=== PATIENT | female | born 1965 | race Caucasian/White ===

== ENCOUNTER → 2016-12-19 | Outpatient (CLI) | payer MEDICARE, MEDICAID ==
[~2016-12-19] MED LIST: ACET325T21 PO; ASPI81TA2 PO; BACL10TA PO; BISA10SU2 RC; BISA5TAB4 PO; CYAN10002 IM; CYCL5TAB PO; FOLI20CA PO; FURO-69 PO; GABA-585 PO; GABA-586 PO; GLUC1VIA IJ; HYDR-2666 PO; INSU100I17 SQ; INSU100V8 SQ; IPRA3AMP23 IH; LOPE2CAP PO; MAG355OR32 PO; MAGN400O4 PO; METF10002 PO; METF500T4 PO; MULT-245 PO; OMEP40CA5 PO; POTA99TA PO; SENN1TAB21 PO; SUCR1TAB PO; [UNRECOGNIZED DRUG - CODE] MC
[2016-12-19 07:58] VITALS: BP 117/54
[2016-12-19 08:20] LABS: HEMATOCRIT 19.6 % (36.0-47.0); HEMOGLOBIN 6.8 g/dL (12.0-15.5)
[2016-12-19 09:16] VITALS: BP 105/51
[2016-12-19 10:07] VITALS: BP 116/57
[2016-12-19 10:49] VITALS: BP 121/57
[2016-12-19 11:15] VITALS: BP 118/57
[2016-12-19 12:15] VITALS: BP 128/60
== END | disposition home or self-care (01) ==
LOC: OPS 07:26
PROVIDERS: ATTEND Internal Medicine
DX: D64.9 Anemia, unspecified (principal)
CPT/HCPCS: 36415; 36430; 85014; 85018; 86850; 86900; 86901; 86920; P9016

== ENCOUNTER 2017-04-12 22:24 | Inpatient (IN) | payer MEDICARE, OTHER ==
[~2017-04-12] VITALS: Ht 162.6 cm; Wt 98.9 kg
[~2017-04-12 22:24] MED LIST changes: +ASPI-630 PO; -ASPI81TA2 PO; -HYDR-2666 PO; +HYDR-2758 PO; -MAGN400O4 PO; +MAGN400O7 PO; +METF-620 PO; -METF10002 PO
[2017-04-12 22:59] LABS: BASO % 0 % (0-3); EOS % 0 % (0-3); HEMATOCRIT 26.6 % (36.0-47.0); LYMPH # 0.2 x10^3/uL (1.0-4.8); LYMPH % 1 % (24-48); MEAN CORPUSCULAR HEMOGLOBIN 28 pg (25-35); MEAN CORPUSCULAR HGB CONC 34 g/dL (31-37); MEAN CORPUSCULAR VOLUME 84 fL (79-100); MONO % 3 % (0-9); NEUT % 96 % (31-73); PLATELET COUNT 139 x10^3/uL (140-400); RED BLOOD COUNT 3.18 x10^6/uL (3.50-5.40); RED CELL DISTRIBUTION WIDTH 27.2 % (11.5-14.5); WHITE BLOOD COUNT 19.2 x10^3/uL (4.0-11.0)
[2017-04-12] MEDS ORDERED: fentaNYL PF VIAL 100 MCG/2 ML VIAL IV PRN (23:15)
[2017-04-12 23:20] LABS: ALBUMIN 4.3 g/dL (3.4-5.0); ALBUMIN/GLOBULIN RATIO 1.5 (1.0-1.7); CALCIUM 8.4 mg/dL (8.5-10.1); CREATININE 1.2 mg/dL (0.6-1.0); GFR 47.7; POTASSIUM 4.2 mmol/L (3.5-5.1); TOTAL PROTEIN 7.1 g/dL (6.4-8.2)
[2017-04-12 23:24] LABS: ANISOCYTOSIS MOD; NUCLEATED RBC 1; PLT ESTIMATE ADEQUATE (ADEQUATE); POIKILOCYTOSIS SLIGHT
[2017-04-12 23:25] LABS: POLYCHROMASIA MOD
[2017-04-12 23:27] LABS: SCHISTOCYTES OCC
[2017-04-12] MEDS ORDERED: ONDANSETRON PF 4 MG/2 ML VIAL. IV ONE (23:30)
[2017-04-12 23:31] LABS: HOWELL-JOLLY BODIES PRESENT
[2017-04-12] MEDS ORDERED: IOHEXOL 300 MG/ML 75 ML VIAL IV ONE (23:45)
[2017-04-12] MEDS ORDERED: CONTRAST GIVEN MC PRN (23:45)
[2017-04-13 00:35] LABS: BILIRUBIN,URINE MODERATE (NEG); GLUCOSE,URINE NEGATIVE (NEG); NITRITE,URINE POSITIVE (NEG); PH,URINE 5.5; PROTEIN,URINE 100 mg/dL (NEG-TRACE)
[2017-04-13 00:43] LABS: BACTERIA,URINE MANY /HPF (0-FEW); RBC,URINE OCC /HPF (0-2); SQUAMOUS EPITHELIAL CELL,UR FEW /LPF; WBC,URINE TNTC /HPF (0-4)
--- NOTE | 2017-04-13 01:03 | RAD ---
CT scan of the abdomen and pelvis with contrast 04/13/2017 CLINICAL HISTORY: Abdominal pain and nausea and vomiting since earlier today. Mean: After the intravenous administration of 60 cc of Omnipaque 300, contiguous, 5 mm axial sections were obtained through the abdomen and pelvis. One or more of the following individualized dose reduction techniques were utilized for this study: 1. Automated exposure control. 2. Adjustment of the mA and/or kV according to patient size. 3. Use of iterative reconstruction technique. FINDINGS: Comparison study is dated 01/10/2014. The absence of oral contrast material limits this study for the detection of bowel pathology. Images through the lung bases demonstrate patchy perihilar areas of infiltrate/atelectasis involving the visualized lungs. There is mild cardiomegaly. The liver is mildly enlarged measuring 20 cm in length. The spleen is mild to moderately enlarged measuring 17 cm in length. The pancreas, adrenal glands and kidneys are within normal limits. The abdominal aorta tapers normally. Surgical clips are seen within the gallbladder fossa consistent with a cholecystectomy. No free air is seen within the abdomen. A small amount of free fluid is seen surrounding the liver and spleen. Mildly dilated fluid-filled small bowel loops are seen within the lower abdomen/pelvis without definite evidence of bowel obstruction. Air and stool is seen throughout the colon. Images through the pelvis demonstrate the urinary bladder distended with urine. The uterus is within normal limits. A small to moderate amount of free fluid is seen. Minimal S-shaped curvature of the thoracolumbar spine is noted. IMPRESSION: 1. Hepatosplenomegaly. 2. Small to moderate amount free fluid is seen within the abdomen/pelvis. 3. No additional acute abnormality is seen. Electronically signed by: Juventino Redd MD (04/13/2017 1:00 AM) [facility]
[2017-04-13] MEDS ORDERED: ONDANSETRON PF 4 MG/2 ML VIAL. IV PRN (01:30)
[2017-04-13] MEDS ORDERED: fentaNYL PF VIAL 100 MCG/2 ML VIAL IV PRN (01:30)
[2017-04-13] MEDS ORDERED: ACETAMINOPHEN 325 MG TABLET. PO PRN ×2 (01:30→09:45)
[2017-04-13] MEDS ORDERED: DEXTROSE 50% 25 GM / 50ML DISP.SYRIN. IV PRN ×2 (02:00→10:00)
--- NOTE | 2017-04-13 04:20 | ED.ADGEN ---
Past Medical History Past Medical History: Anemia, Diabetes-Type II, Gallstones, GERD, Hypertension , Other Additional Past Medical Histor: QUAD.,NEURO. BLADDER, MUSCLE SPASMS, CERVICAL FX, HYPOKALEMIA Past Surgical History: Other Additional Past Surgical Histo: UNKNOWN Alcohol Use: None Drug Use: None Adult General Chief Complaint Chief Complaint: NAUSEA/VOMITING/DIARRHA HPI HPI Patient is a 51 year old woman, history of cervical fracture, neurogenic bladder, anemia, GERD, hypertension, constipation, who presents the emergency department from her nursing facility with report of abdominal pain, nausea and vomiting. Patient denies any urinary complaints, but has difficulty reporting reporting due to her neurogenic bladder. She wears a diaper brief. She is complaining of nausea, and one episode of vomiting at the nursing facility, with cramping abdominal pain in her lower abdomen. Denies any sick contacts or exposures. No chest pain or shortness of breath, states she is feeling generally unwell. No recent antibiotic use per report. She is not certain of her last bowel movement. Denies any diarrhea. Patient's sister who is her care proxy is en route to the ED. Review of Systems Review of Systems Constitutional: Denies fever or chills. [] Eyes: Denies change in visual acuity. [] HENT: Denies nasal congestion or sore throat. [] Respiratory: Denies cough or shortness of breath. [] Cardiovascular: Denies chest pain or edema. [] GI: Abdominal pain, nausea, one episode of vomiting, no bloody stools or diarrhea. : Denies dysuria. [] Musculoskeletal: Denies back pain or joint pain. [] Integument: Denies rash. [] Neurologic: Denies headache, focal weakness or sensory changes. [] Endocrine: Denies polyuria or polydipsia. [] Lymphatic: Denies swollen glands. [] Psychiatric: Denies depression or anxiety. [] Current Medications Current Medications Current Medications Medications (Trade) Dose Ordered Sig/Heladio Start Time Stop Time Status Last Admin Dose Admin Fentanyl Citrate (Fentanyl 2ml Vial) 25 mcg PRN Q15MIN PRN 04/12/17 23:15 04/13/17 03:00 DC 04/12/17 23:33 25 MCG Info (Do NOT chart on this entry -- for MONITORING) 1 each PRN DAILY PRN 04/12/17 23:45 04/14/17 23:44 Iohexol (Omnipaque 300 Mg/ml) 75 ml 1X ONCE 04/12/17 23:45 04/12/17 23:46 DC 04/13/17 00:09 75 ML Ondansetron HCl (Zofran) 4 mg 1X ONCE 04/12/17 23:30 04/12/17 23:31 DC 04/12/17 23:33 4 MG Allergies Allergies Allergies Coded Allergies Type Severity Reaction Last Updated Verified No Known Drug Allergies 12/19/16 No Physical Exam Physical Exam Constitutional: Well developed, well nourished, no acute distress, chronically ill in appearance, nasal cannula in place.. [] HENT: Normocephalic, atraumatic, bilateral external ears normal, oropharynx moist, no oral exudates, nose normal. [] Eyes: PERRLA, EOMI, conjunctiva normal, no discharge. [] Neck: Normal range of motion, no tenderness, supple, no stridor. [] Cardiovascular:Heart rate regular rhythm, no murmur , S1, S2, rubs or gallops. [ ] Lungs & Thorax: Diminished breath sounds at bases bilaterally, no wheezing, rhonchi, rales. No chest wall crepitus. [] Abdomen: Bowel sounds present, in all 4 quadrants, abdomen is soft, but distended, mild initial patient throughout, no rebound or rigidity, no guarding. Well-healed surgical incisions noted consistent with history of cholecystectomy in the right abdomen. Skin: Warm, dry, no erythema, no rash. [] Back: No tenderness, no CVA tenderness. [] Extremities: No tenderness, no cyanosis, no clubbing, ROM intact, denies edema of lower extremity and upper extremities, which is chronic. Neurologic: Alert and oriented X 3, normal motor function, normal sensory function, no focal deficits noted. [] Psychologic: Affect normal, judgement normal, mood normal. [] Current Patient Data Vital Signs Vital Signs Date Time Temp Pulse Resp B/P (MAP) Pulse Ox O2 Delivery O2 Flow Rate FiO2 04/13/17 01:00 76 112/51 (71) 92 Nasal Cannula 2.0 04/13/17 00:00 20 04/12/17 22:25 99.8 99.8 Lab Values Laboratory Tests Test 04/12/17 22:50 04/13/17 00:28 White Blood Count 19.2 x10^3/uL (4.0-11.0) H Red Blood Count 3.18 x10^6/uL (3.50-5.40) L Hemoglobin 9.0 g/dL (12.0-15.5) L Hematocrit 26.6 % (36.0-47.0) L Mean Corpuscular Volume 84 fL (79-100) Mean Corpuscular Hemoglobin 28 pg (25-35) Mean Corpuscular Hemoglobin Concent 34 g/dL (31-37) Red Cell Distribution Width 27.2 % (11.5-14.5) H Platelet Count 139 x10^3/uL (140-400) L Neutrophils (%) (Auto) 96 % (31-73) H Lymphocytes (%) (Auto) 1 % (24-48) L Monocytes (%) (Auto) 3 % (0-9) Eosinophils (%) (Auto) 0 % (0-3) Basophils (%) (Auto) 0 % (0-3) Neutrophils # (Auto) 18.4 x10^3uL (1.8-7.7) H Lymphocytes # (Auto) 0.2 x10^3/uL (1.0-4.8) L Monocytes # (Auto) 0.5 x10^3/uL (0.0-1.1) Eosinophils # (Auto) 0.0 x10^3/uL (0.0-0.7) Basophils # (Auto) 0.0 x10^3/uL (0.0-0.2) Segmented Neutrophils % 70 % (35-66) H Band Neutrophils % 27 % (0-9) H Lymphocytes % 2 % (24-48) L Monocytes % 1 % (0-10) Nucleated Red Blood Cells 1 Platelet Estimate Adequate (ADEQUATE) Polychromasia Mod Poikilocytosis Slight Basophilic Stippling Present Anisocytosis Mod Spherocytes Present [place]yes-[place] Bodies Present Schistocytes Occ Sodium Level 146 mmol/L (136-145) H Potassium Level 4.2 mmol/L (3.5-5.1) Chloride Level 107 mmol/L (98-107) Carbon Dioxide Level 26 mmol/L (21-32) Anion Gap 13 (6-14) Blood Urea Nitrogen 31 mg/dL (7-20) H Creatinine 1.2 mg/dL (0.6-1.0) H Estimated GFR (Cockcroft-Gault) 47.7 BUN/Creatinine Ratio 26 (6-20) H Glucose Level 253 mg/dL (70-99) H Calcium Level 8.4 mg/dL (8.5-10.1) L Total Bilirubin 4.0 mg/dL (0.2-1.0) H Aspartate Amino Transferase (AST) 12 U/L (15-37) L Alanine Aminotransferase (ALT) 12 U/L (14-59) L Alkaline Phosphatase 67 U/L (46-116) Troponin I Quantitative 0.020 ng/mL (0.000-0.055) ZE-Gni-P-Type Natriuretic Peptide 1608 pg/mL (0-124) H Total Protein 7.1 g/dL (6.4-8.2) Albumin 4.3 g/dL (3.4-5.0) Albumin/Globulin Ratio 1.5 (1.0-1.7) Lipase 107 U/L (73-393) Urine Collection Type Unknown Urine Color [place] Urine Clarity Cloudy Urine pH 5.5 Urine Specific [place] >=1.030 Urine Protein 100 mg/dL (NEG-TRACE) Urine Glucose (UA) Negative mg/dL (NEG) Urine Ketones (Stick) 15 mg/dL (NEG) Urine Blood Negative (NEG) Urine Nitrite Positive (NEG) Urine Bilirubin Moderate (NEG) Urine Urobilinogen Dipstick 1.0 mg/dL (0.2 mg/dL) Urine Leukocyte Esterase Large (NEG) Urine RBC Occ /HPF (0-2) Urine WBC Tntc /HPF (0-4) Urine Squamous Epithelial Cells Few /LPF Urine Bacteria Many /HPF (0-FEW) Urine Hyaline Casts Moderate /HPF Urine Mucus Mod /LPF Laboratory Tests 04/12/17 22:50 Laboratory Tests 04/12/17 22:50 EKG EKG EC: Sinus rhythm, heart rate 81 beats/minute, upright axis, QTC of 437, MN 138, QRS of 90, mild baseline artifact noted, contour abnormality is noted in the anterior lateral leads, no ST elevations or depressions, abnormal ECG, does not meet STEMI criteria. As interpreted by me. [] Radiology/Procedures Radiology/Procedures [][facility] [address] [place] [address] IMAGING REPORT Signed PATIENT: JOCE RODARTE ACCOUNT: [id number] : 1965 LOCATION: ER AGE: 51 SEX: F EXAM STATUS: REG ER ORD. PHYSICIAN: MICHELLE ALLEN DO REASON: abd pain/n/v PROCEDURE: CT ABD PELV W/ IV CONTRST ONLY CT scan of the abdomen and pelvis with contrast 04/13/2017 CLINICAL HISTORY: Abdominal pain and nausea and vomiting since earlier today. Mean: After the intravenous administration of 60 cc of Omnipaque 300, contiguous, 5 mm axial sections were obtained through the abdomen and pelvis. One or more of the following individualized dose reduction techniques were utilized for this study: 1. Automated exposure control. 2. Adjustment of the mA and/or kV according to patient size. 3. Use of iterative reconstruction technique. FINDINGS: Comparison study is dated 01/10/2014. The absence of oral contrast material limits this study for the detection of bowel pathology. Images through the lung bases demonstrate patchy perihilar areas of infiltrate/atelectasis involving the visualized lungs. There is mild cardiomegaly. The liver is mildly enlarged measuring 20 cm in length. The spleen is mild to moderately enlarged measuring 17 cm in length. The pancreas, adrenal glands and kidneys are within normal limits. The abdominal aorta tapers normally. Surgical clips are seen within the gallbladder fossa consistent with a cholecystectomy. No free air is seen within the abdomen. A small amount of free fluid is seen surrounding the liver and spleen. Mildly dilated fluid-filled small bowel loops are seen within the lower abdomen/pelvis without definite evidence of bowel obstruction. Air and stool is seen throughout the colon. Images through the pelvis demonstrate the urinary bladder distended with urine. The uterus is within normal limits. A small to moderate amount of free fluid is seen. Minimal S-shaped curvature of the thoracolumbar spine is noted. IMPRESSION: 1. Hepatosplenomegaly. 2. Small to moderate amount free fluid is seen within the abdomen/pelvis. 3. No additional acute abnormality is seen. Electronically signed by: Juventino Redd MD (04/13/2017 1:00 AM) [facility] DICTATED and SIGNED BY: JUVENTINO REDD MD DATE: 04/13/17 0053 CC: MICHELEL ALLEN DO; LIZA CARREONH ~ Course & Med Decision Making Course & Med Decision Making Pertinent Labs and Imaging studies reviewed. (See chart for details) Patient's examination reveals positive bowel sounds, but some tympany and distention, concern for possible small bowel obstruction versus other process. Patient noted to have generalized edema, which is chronic for patient. Laboratory studies and imaging obtained after discussion with patient, pain medication and antiemetics administered. Patient has only had one episode of emesis, no further emesis in the ED. Urinalysis obtained. Urinalysis reveals a nitrate positive infection, with too numerous to count white blood cells and many bacteria. CT of abdomen and pelvis reveals small moderate amount of free fluid, possibly ascites, with mildly dilated loops of bowel but no obvious evidence of obstruction. Patient does have a leukocytosis of 19, with a hemoglobin of 9.0. She is afebrile, is resting comfortably receiving medication in the ED. I did discuss findings as above with patient and sister at bedside. At this time, we'll treat urinary tract infection with ceftriaxone, continue to monitor laboratory studies and vital signs, she remained stable in the ED, and will advance a clear liquid diet in the morning as tolerated as there is no evidence of obvious obstruction. Patient noted to have history of issues with constipation and slow bowel motility. I did discuss findings as above with Dr. Dunn, who is familiar with the patient previously admissions, he is agreeable with plan for advancing diet as tolerated, treatment of urinary tract infection , and close monitoring. Bridge orders entered per discussion. Dragon Disclaimer Dragon Disclaimer This electronic medical record was generated, in whole or in part, using a voice recognition dictation system. Departure Impression: Primary Impression: Abdominal pain Additional Impressions: Leukocytosis Urinary tract infection Disposition: ADMITTED INPATIENT Admitting Physician: Alyssa Dunn Condition: IMPROVED Problem Qualifiers MICHELLE ALLEN DO Apr 13, 2017 04:20
[2017-04-13] MEDS ORDERED: POTASSIUM CHLO10 MEQ PO (04:25)
[2017-04-13] MEDS ORDERED: METF850T2 PO (04:25)
[2017-04-13] MEDS ORDERED: DEXT15DR5 EACHEYE (04:25)
[2017-04-13] MEDS ORDERED: FLUT9.9S NS (04:25)
[2017-04-13] MEDS ORDERED: LINA72CA PO (04:25)
[2017-04-13] MEDS ORDERED: LEXAPRO20 MG PO (04:25)
[2017-04-13] MEDS ORDERED: ACET-704 PO (04:25)
[2017-04-13] MEDS ORDERED: FAMO20TA5 PO (04:25)
--- NOTE | 2017-04-13 06:56 | EKG ---
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
[2017-04-13 07:46] VITALS: BP 113/39
[2017-04-13] MEDS: INSULIN ASPART 300 UNITS/3 ML INSULN.PEN SQ SCH ×6 (09:16→17:12)
[2017-04-13] MEDS ORDERED: MAG HYDROX/ALUMINUM HYD/SIMETH 30 ML ORAL.SUSP PO PRN (09:45)
[2017-04-13] MEDS ORDERED: MAGNESIUM HYDROXIDE 2,400 MG/30 ML ORAL.SUSP. PO PRN (09:45)
[2017-04-13] MEDS ORDERED: GLUCAGON HUMAN RECOMBINANT 1 MG IJ PRN (09:45)
[2017-04-13] MEDS ORDERED: FUROSEMIDE 20 MG TABLET PO SCH (10:00)
[2017-04-13] MEDS ORDERED: ENOXAPARIN 40 MG/0.4 ML SYRINGE. SQ SCH (10:00)
[2017-04-13] MEDS ORDERED: FLUTICASONE 50MCG/NASAL SPRAY 16GM BOTTLE. NS SCH (10:00)
--- NOTE | 2017-04-13 10:28 | PDOC1 ---
History and Physical Past Medical History Cardiovascular: HTN CENTRAL NERVOUS SYSTEM: Other GI: Constipation Heme/Onc: Iron deficiency Anemia Hepatobiliary: Cholelithiasis Psych: Other Renal/: UTI, Urinary Incontinence, Other Endocrine: Diabetes Past Surgical History Past Surgical History: Cholecystectomy Family History Family History: Obesity Social History ALCOHOL: none Drugs: None Current Problem List Problem List Problems Medical Problems: (1) Abdominal pain Status: Acute (2) Leukocytosis Status: Acute (3) Urinary tract infection Status: Acute Current Medications Current Medications Current Medications Medications (Trade) Dose Ordered Sig/Heladio Start Time Stop Time Status Last Admin Dose Admin Acetaminophen (Tylenol) 650 mg PRN Q8HRS PRN 04/13/17 09:45 Acetaminophen/ Codeine Phosphate (Tylenol #3) 1 tab PRN Q4HRS PRN 04/13/17 09:45 Al Hydroxide/Mg Hydroxide (Mylanta Plus Xs) 30 ml PRN DAILY PRN 04/13/17 09:45 Albuterol/ Ipratropium (Duoneb) 3 ml [id number] 04/13/17 10:00 Artificial Tears (Artificial Tears) 1 drop QID 04/13/17 10:15 Baclofen (Lioresal) 10 mg QID 04/13/17 13:00 Ceftriaxone Sodium 1 gm/ Sodium Chloride 50 ml @ 100 mls/hr Q24H 04/13/17 23:00 Ceftriaxone Sodium 50 ml @ 100 mls/hr 1X ONCE 04/13/17 01:30 04/13/17 01:59 DC 04/13/17 01:38 100 MLS/HR Cyanocobalamin (Vitamin B-12) 1,000 mcg QMONTH 05/13/17 09:00 UNV Cyclobenzaprine HCl (Flexeril) 5 mg BID 04/13/17 10:15 Dextrose (Dextrose 50%-Water Syringe) 12.5 gm PRN Q15MIN PRN 04/13/17 10:00 Enoxaparin Sodium (Lovenox 40mg Syringe) 40 mg Q24H 04/13/17 10:00 Escitalopram Oxalate (Lexapro) 20 mg DAILY 04/13/17 11:00 Famotidine (Pepcid) 20 mg HS 04/13/17 21:00 Fentanyl Citrate (Fentanyl 2ml Vial) 50 mcg PRN Q2HR PRN 04/13/17 01:30 04/14/17 01:29 04/13/17 03:23 50 MCG Fluticasone Propionate (Flonase) 2 spray DAILY 04/13/17 10:00 Folic Acid (Folic Acid) 1 mg DAILY 04/13/17 10:00 Furosemide (Lasix) 20 mg DAILY 04/13/17 10:00 Gabapentin (Neurontin) 100 mg BID 04/13/17 10:00 Info (Do NOT chart on this entry -- for MONITORING) 1 each PRN DAILY PRN 04/12/17 23:45 04/14/17 23:44 Insulin Aspart (NovoLOG) 0-7 UNITS TIDWMEALS 04/13/17 12:00 Iohexol (Omnipaque 300 Mg/ml) 75 ml 1X ONCE 04/12/17 23:45 04/12/17 23:46 DC 04/13/17 00:09 75 ML Magnesium Hydroxide (Milk Of Magnesia) 2,400 mg PRN DAILY PRN 04/13/17 09:45 Metformin HCl (Glucophage) 850 mg BIDWMEALS 04/15/17 08:00 Multivitamins (Thera M Plus) 1 tab DAILY 04/13/17 10:00 Non-Formulary Medication 1 mg PRN PRN 04/13/17 09:45 Ondansetron HCl (Zofran) 4 mg PRN Q8HRS PRN 04/13/17 01:30 04/14/17 01:29 Potassium Chloride (Klor-Con) 10 meq [id number] 04/13/17 10:00 Senna/Docusate Sodium (Senna Plus) 1 tab BID 04/13/17 10:00 Sucralfate (Carafate) 1 gm TIDAC 04/13/17 11:30 Allergies Allergies Allergies Coded Allergies Type Severity Reaction Last Updated Verified No Known Drug Allergies 12/19/16 No ROS Review of System CONSTITUTIONAL: No fever or chills EYES: No recent changes SKIN: No rash or itching CARDIOVASCULAR: No chest pain, syncope, palpitations, or edema RESPIRATORY: No SOB or cough GASTROINTESTINAL: No nausea, vomiting or abdominal pain NEUROLOGICAL: No headaches or weakness ENDOCRINE: No cold or heat intolerance GENITOURINARY: No urgency or frequency of urination MUSCULOSKELETAL: No back pain or joint pain LYMPHATICS: No enlarged lymph nodes PSYCHIATRIC: No anxiety or depression Physical Exam Physical Exam GEN.: No apparent distress. Alert and oriented. HEENT: Head is normocephalic, atraumatic NECK: Supple. LUNGS: Clear to auscultation. HEART: RRR, S1, S2 present. Peripheral pulses intact ABDOMEN: Soft, nontender. Positive bowel sounds. EXTREMITIES: Without any cyanosis. NEUROLOGIC: Normal speech, normal tone PSYCHIATRIC: Normal affect, normal mood. SKIN: No ulcerations Vitals Vitals Vital Signs Date Time Temp Pulse Resp B/P (MAP) Pulse Ox O2 Delivery O2 Flow Rate FiO2 04/13/17 07:46 98.9 83 15 113/39 (63) 94 Room Air 98.9 04/13/17 03:53 2.0 Labs Labs Laboratory Tests Test 04/12/17 22:50 04/13/17 00:28 04/13/17 07:56 White Blood Count 19.2 x10^3/uL (4.0-11.0) Red Blood Count 3.18 x10^6/uL (3.50-5.40) Hemoglobin 9.0 g/dL (12.0-15.5) Hematocrit 26.6 % (36.0-47.0) Mean Corpuscular Volume 84 fL (79-100) Mean Corpuscular Hemoglobin 28 pg (25-35) Mean Corpuscular Hemoglobin Concent 34 g/dL (31-37) Red Cell Distribution Width 27.2 % (11.5-14.5) Platelet Count 139 x10^3/uL (140-400) Neutrophils (%) (Auto) 96 % (31-73) Lymphocytes (%) (Auto) 1 % (24-48) Monocytes (%) (Auto) 3 % (0-9) Eosinophils (%) (Auto) 0 % (0-3) Basophils (%) (Auto) 0 % (0-3) Neutrophils # (Auto) 18.4 x10^3uL (1.8-7.7) Lymphocytes # (Auto) 0.2 x10^3/uL (1.0-4.8) Monocytes # (Auto) 0.5 x10^3/uL (0.0-1.1) Eosinophils # (Auto) 0.0 x10^3/uL (0.0-0.7) Basophils # (Auto) 0.0 x10^3/uL (0.0-0.2) Segmented Neutrophils % 70 % (35-66) Band Neutrophils % 27 % (0-9) Lymphocytes % 2 % (24-48) Monocytes % 1 % (0-10) Nucleated Red Blood Cells 1 Platelet Estimate Adequate (ADEQUATE) Polychromasia Mod Poikilocytosis Slight Basophilic Stippling Present Anisocytosis Mod Spherocytes Present Reyes-[place] Bodies Present Schistocytes Occ Sodium Level 146 mmol/L (136-145) Potassium Level 4.2 mmol/L (3.5-5.1) Chloride Level 107 mmol/L (98-107) Carbon Dioxide Level 26 mmol/L (21-32) Anion Gap 13 (6-14) Blood Urea Nitrogen 31 mg/dL (7-20) Creatinine 1.2 mg/dL (0.6-1.0) Estimated GFR (Cockcroft-Gault) 47.7 BUN/Creatinine Ratio 26 (6-20) Glucose Level 253 mg/dL (70-99) Calcium Level 8.4 mg/dL (8.5-10.1) Total Bilirubin 4.0 mg/dL (0.2-1.0) Aspartate Amino Transf (AST/SGOT) 12 U/L (15-37) Alanine Aminotransferase (ALT/SGPT) 12 U/L (14-59) Alkaline Phosphatase 67 U/L (46-116) Troponin I Quantitative 0.020 ng/mL (0.000-0.055) VT-Zwa-N-Type Natriuretic Peptide 1608 pg/mL (0-124) Total Protein 7.1 g/dL (6.4-8.2) Albumin 4.3 g/dL (3.4-5.0) Albumin/Globulin Ratio 1.5 (1.0-1.7) Lipase 107 U/L (73-393) Urine Collection Type Unknown Urine Color [place] Urine Clarity Cloudy Urine pH 5.5 Urine Specific [place] >=1.030 Urine Protein 100 mg/dL (NEG-TRACE) Urine Glucose (UA) Negative mg/dL (NEG) Urine Ketones (Stick) 15 mg/dL (NEG) Urine Blood Negative (NEG) Urine Nitrite Positive (NEG) Urine Bilirubin Moderate (NEG) Urine Urobilinogen Dipstick 1.0 mg/dL (0.2 mg/dL) Urine Leukocyte Esterase Large (NEG) Urine RBC Occ /HPF (0-2) Urine WBC Tntc /HPF (0-4) Urine Squamous Epithelial Cells Few /LPF Urine Bacteria Many /HPF (0-FEW) Urine Hyaline Casts Moderate /HPF Urine Mucus Mod /LPF Glucose (Fingerstick) 312 mg/dL (70-99) Laboratory Tests Test 04/12/17 22:50 04/13/17 00:28 04/13/17 07:56 White Blood Count 19.2 x10^3/uL (4.0-11.0) Red Blood Count 3.18 x10^6/uL (3.50-5.40) Hemoglobin 9.0 g/dL (12.0-15.5) Hematocrit 26.6 % (36.0-47.0) Mean Corpuscular Volume 84 fL (79-100) Mean Corpuscular Hemoglobin 28 pg (25-35) Mean Corpuscular Hemoglobin Concent 34 g/dL (31-37) Red Cell Distribution Width 27.2 % (11.5-14.5) Platelet Count 139 x10^3/uL (140-400) Neutrophils (%) (Auto) 96 % (31-73) Lymphocytes (%) (Auto) 1 % (24-48) Monocytes (%) (Auto) 3 % (0-9) Eosinophils (%) (Auto) 0 % (0-3) Basophils (%) (Auto) 0 % (0-3) Neutrophils # (Auto) 18.4 x10^3uL (1.8-7.7) Lymphocytes # (Auto) 0.2 x10^3/uL (1.0-4.8) Monocytes # (Auto) 0.5 x10^3/uL (0.0-1.1) Eosinophils # (Auto) 0.0 x10^3/uL (0.0-0.7) Basophils # (Auto) 0.0 x10^3/uL (0.0-0.2) Segmented Neutrophils % 70 % (35-66) Band Neutrophils % 27 % (0-9) Lymphocytes % 2 % (24-48) Monocytes % 1 % (0-10) Nucleated Red Blood Cells 1 Platelet Estimate Adequate (ADEQUATE) Polychromasia Mod Poikilocytosis Slight Basophilic Stippling Present Anisocytosis Mod Spherocytes Present Reyes-[place] Bodies Present Schistocytes Occ Sodium Level 146 mmol/L (136-145) Potassium Level 4.2 mmol/L (3.5-5.1) Chloride Level 107 mmol/L (98-107) Carbon Dioxide Level 26 mmol/L (21-32) Anion Gap 13 (6-14) Blood Urea Nitrogen 31 mg/dL (7-20) Creatinine 1.2 mg/dL (0.6-1.0) Estimated GFR (Cockcroft-Gault) 47.7 BUN/Creatinine Ratio 26 (6-20) Glucose Level 253 mg/dL (70-99) Calcium Level 8.4 mg/dL (8.5-10.1) Total Bilirubin 4.0 mg/dL (0.2-1.0) Aspartate Amino Transf (AST/SGOT) 12 U/L (15-37) Alanine Aminotransferase (ALT/SGPT) 12 U/L (14-59) Alkaline Phosphatase 67 U/L (46-116) Troponin I Quantitative 0.020 ng/mL (0.000-0.055) AH-Qaf-M-Type Natriuretic Peptide 1608 pg/mL (0-124) Total Protein 7.1 g/dL (6.4-8.2) Albumin 4.3 g/dL (3.4-5.0) Albumin/Globulin Ratio 1.5 (1.0-1.7) Lipase 107 U/L (73-393) Urine Collection Type Unknown Urine Color [place] Urine Clarity Cloudy Urine pH 5.5 Urine Specific [place] >=1.030 Urine Protein 100 mg/dL (NEG-TRACE) Urine Glucose (UA) Negative mg/dL (NEG) Urine Ketones (Stick) 15 mg/dL (NEG) Urine Blood Negative (NEG) Urine Nitrite Positive (NEG) Urine Bilirubin Moderate (NEG) Urine Urobilinogen Dipstick 1.0 mg/dL (0.2 mg/dL) Urine Leukocyte Esterase Large (NEG) Urine RBC Occ /HPF (0-2) Urine WBC Tntc /HPF (0-4) Urine Squamous Epithelial Cells Few /LPF Urine Bacteria Many /HPF (0-FEW) Urine Hyaline Casts Moderate /HPF Urine Mucus Mod /LPF Glucose (Fingerstick) 312 mg/dL (70-99) VTE Prophylaxis Ordered VTE Prophylaxis Devices: Yes VTE Pharmacological Prophylaxi: Yes LIZZIE REYNOLDS MD Apr 13, 2017 10:28
[2017-04-13] MEDS: IPRATRPIUM/ALBUTEROL 0.5/2.5MG 3 ML NEBU. IH SCH ×2 (10:56→20:22)
[2017-04-13] MEDS ORDERED: ESCITALOPRAM 10 MG TABLET. PO SCH (11:00)
[2017-04-13 11:19] VITALS: BP 115/44
[2017-04-13 11:29] LABS: CALCIUM 7.7 mg/dL (8.5-10.1); CREATININE 1.1 mg/dL (0.6-1.0); GFR 52.8; POTASSIUM 4.1 mmol/L (3.5-5.1)
[2017-04-13 11:54] LABS: BASO % 0 % (0-3); EOS % 0 % (0-3); LYMPH % 5 % (24-48); MEAN CORPUSCULAR HEMOGLOBIN 28 pg (25-35); MEAN CORPUSCULAR HGB CONC 35 g/dL (31-37); MEAN CORPUSCULAR VOLUME 79 fL (79-100); MONO % 4 % (0-9); NEUT % 91 % (31-73); PLATELET COUNT 119 x10^3/uL (140-400); RED BLOOD COUNT 2.45 x10^6/uL (3.50-5.40); RED CELL DISTRIBUTION WIDTH 26.1 % (11.5-14.5); WHITE BLOOD COUNT 18.3 x10^3/uL (4.0-11.0)
[2017-04-13 12:00] LABS: HEMATOCRIT 19.4 % (36.0-47.0); HEMOGLOBIN 6.8 g/dL (12.0-15.5)
[2017-04-13] MEDS: POTASSIUM CHLORIDE 10 MEQ TABLET.ER. PO SCH (12:35)
[2017-04-13] MEDS: FOLIC ACID 1 MG TABLET. PO SCH (12:35)
[2017-04-13] MEDS: SENNOSIDES/DOCUSATE 8.6/50MG TABLET. PO SCH ×2 (12:36→22:17)
[2017-04-13] MEDS: GABAPENTIN 100 MG CAPSULE. PO SCH ×2 (12:36→22:16)
[2017-04-13] MEDS: MULTIVITAMIN with MINERAL TABLET. PO SCH (12:36)
[2017-04-13] MEDS: POLYVINYL ALCOHOL 1.4% OPHTH SOLUTION 15ML BOTTLE. OU SCH ×4 (12:37→21:00)
[2017-04-13] MEDS: CYCLOBENZAPRINE 10 MG TABLET. PO SCH ×2 (12:37→22:16)
[2017-04-13] MEDS: FLUTICASONE 50MCG/NASAL SPRAY 16GM BOTTLE. NS SCH (12:38)
[2017-04-13] MEDS: SUCRALFATE 1 GM TABLET. PO SCH ×2 (12:39→17:07)
[2017-04-13] MEDS: BACLOFEN 10 MG TABLET. PO SCH ×3 (13:00→22:16)
--- NOTE | 2017-04-13 13:19 | PDOC2 ---
CARDIAC CONSULT DATE OF CONSULT Date of Consult DATE: 04/13/17 TIME: 13:06 REASON FOR CONSULT Reason for Consult: elevated BNP HISTORY OF PRESENT ILLNESS HISTORY OF PRESENT ILLNESS 51 year old female with history of quadriplegia and neurogenic bladder, hypertension and constipation who presented to the ED with complaints of lower abdominal pain and nausea/vomiting. She was noted to have an elevated BNP so consult was called. She has history of chronic generalized edema which is unchanged. She denies chest pain, dyspnea or palpitations. PAST MEDICAL HISTORY Past Medical History general: obesity, mental retardation GI: GERD CENTRAL NERVOUS SYSTEM: Other (cervical fx with spinal cord injury; quadriplegia) Heme/Onc: Other (spherocytic anemia) Renal/: UTI, Urinary Incontinence, Other (neurogenic bladder) Endocrine: Diabetes PAST SURGICAL HISTORY Past Surgical History Cholecystectomy, Other (back surgery ) FAMILY HISTORY Family History Family History Unknown SOCIAL HISTORY Social History non smoker, no ETOH, No illicit drugs, [place]. CURRENT MEDICATIONS CURRENT MEDICATIONS Current Medications Medications (Trade) Dose Ordered Sig/Heladio Route PRN Reason Start Time Stop Time Status Last Admin Dose Admin Fentanyl Citrate (Fentanyl 2ml Vial) 25 mcg PRN Q15MIN PRN IV PAIN GREATER THAN 3/10 04/12/17 23:15 04/13/17 03:00 DC 04/12/17 23:33 Ondansetron HCl (Zofran) 4 mg 1X ONCE IV 04/12/17 23:30 04/12/17 23:31 DC 04/12/17 23:33 Iohexol (Omnipaque 300 Mg/ml) 75 ml 1X ONCE IV 04/12/17 23:45 04/12/17 23:46 DC 04/13/17 00:09 Ceftriaxone Sodium 50 ml @ 100 mls/hr 1X ONCE IV 04/13/17 01:30 04/13/17 01:59 DC 04/13/17 01:38 Fentanyl Citrate (Fentanyl 2ml Vial) 50 mcg PRN Q2HR PRN IV SEVERE PAIN 04/13/17 01:30 04/14/17 01:29 04/13/17 03:23 Insulin Aspart (NovoLOG) 0-5 UNITS TIDWMEALS SQ 04/13/17 08:00 04/13/17 12:55 Furosemide (Lasix) 20 mg DAILY PO 04/13/17 10:00 04/13/17 12:35 Gabapentin (Neurontin) 100 mg BID PO 04/13/17 10:00 04/13/17 12:36 Insulin Aspart (NovoLOG) 7 units TIDBFRMEAL SQ 04/13/17 11:30 04/13/17 12:57 Albuterol/ Ipratropium (Duoneb) 3 ml [id number] IH 04/13/17 10:00 04/13/17 10:56 Senna/Docusate Sodium (Senna Plus) 1 tab BID PO 04/13/17 10:00 04/13/17 12:36 Sucralfate (Carafate) 1 gm TIDAC PO 04/13/17 11:30 04/13/17 12:39 Cyclobenzaprine HCl (Flexeril) 5 mg BID PO 04/13/17 10:15 04/13/17 12:37 Artificial Tears (Artificial Tears) 1 drop QID OU 04/13/17 10:15 04/13/17 12:37 Escitalopram Oxalate (Lexapro) 20 mg DAILY PO 04/13/17 11:00 04/13/17 12:39 Folic Acid (Folic Acid) 1 mg DAILY PO 04/13/17 10:00 04/13/17 12:35 Multivitamins (Thera M Plus) 1 tab DAILY PO 04/13/17 10:00 04/13/17 12:36 Potassium Chloride (Klor-Con) 10 meq DAILYWBKFT PO 04/13/17 10:00 04/13/17 12:35 Fluticasone Propionate (Flonase) 2 spray DAILY NS 04/13/17 11:00 04/13/17 12:38 ALLERGIES ALLERGIES: Coded Allergies: No Known Drug Allergies (Unverified , 12/19/16) ROS Review of System as per HPI PHYSICAL EXAM General: Alert, Oriented X3, No acute distress HEENT: Atraumatic, Mucous membr. moist/pink Lungs: Other (decreased bases without crackles, rhonchi or wheezing) Heart: Regular rate, Normal S1, Normal S2 Abdomen: Normal bowel sounds Extremities: Other (generalized edema, chronic) Psych/Mental Status: Mood NL VITALS VITALS Vital Signs Date Time Temp Pulse Resp B/P (MAP) Pulse Ox O2 Delivery O2 Flow Rate FiO2 04/13/17 11:19 98.2 80 15 115/44 (67) 96 Room Air 98.2 04/13/17 11:00 2.0 LABS Lab: Laboratory Tests Test 04/12/17 22:50 04/13/17 00:28 04/13/17 07:56 04/13/17 11:00 White Blood Count 19.2 x10^3/uL (4.0-11.0) Red Blood Count 3.18 x10^6/uL (3.50-5.40) Hemoglobin 9.0 g/dL (12.0-15.5) Hematocrit 26.6 % (36.0-47.0) Mean Corpuscular Volume 84 fL (79-100) Mean Corpuscular Hemoglobin 28 pg (25-35) Mean Corpuscular Hemoglobin Concent 34 g/dL (31-37) Red Cell Distribution Width 27.2 % (11.5-14.5) Platelet Count 139 x10^3/uL (140-400) Neutrophils (%) (Auto) 96 % (31-73) Lymphocytes (%) (Auto) 1 % (24-48) Monocytes (%) (Auto) 3 % (0-9) Eosinophils (%) (Auto) 0 % (0-3) Basophils (%) (Auto) 0 % (0-3) Neutrophils # (Auto) 18.4 x10^3uL (1.8-7.7) Lymphocytes # (Auto) 0.2 x10^3/uL (1.0-4.8) Monocytes # (Auto) 0.5 x10^3/uL (0.0-1.1) Eosinophils # (Auto) 0.0 x10^3/uL (0.0-0.7) Basophils # (Auto) 0.0 x10^3/uL (0.0-0.2) Segmented Neutrophils % 70 % (35-66) Band Neutrophils % 27 % (0-9) Lymphocytes % 2 % (24-48) Monocytes % 1 % (0-10) Nucleated Red Blood Cells 1 Platelet Estimate Adequate (ADEQUATE) Polychromasia Mod Poikilocytosis Slight Basophilic Stippling Present Anisocytosis Mod Spherocytes Present [place] Bodies Present Schistocytes Occ Sodium Level 146 mmol/L (136-145) 142 mmol/L (136-145) Potassium Level 4.2 mmol/L (3.5-5.1) 4.1 mmol/L (3.5-5.1) Chloride Level 107 mmol/L (98-107) 105 mmol/L (98-107) Carbon Dioxide Level 26 mmol/L (21-32) 22 mmol/L (21-32) Anion Gap 13 (6-14) 15 (6-14) Blood Urea Nitrogen 31 mg/dL (7-20) 36 mg/dL (7-20) Creatinine 1.2 mg/dL (0.6-1.0) 1.1 mg/dL (0.6-1.0) Estimated GFR (Cockcroft-Gault) 47.7 52.8 BUN/Creatinine Ratio 26 (6-20) Glucose Level 253 mg/dL (70-99) 333 mg/dL (70-99) Calcium Level 8.4 mg/dL (8.5-10.1) 7.7 mg/dL (8.5-10.1) Total Bilirubin 4.0 mg/dL (0.2-1.0) Aspartate Amino Transf (AST/SGOT) 12 U/L (15-37) Alanine Aminotransferase (ALT/SGPT) 12 U/L (14-59) Alkaline Phosphatase 67 U/L (46-116) Troponin I Quantitative 0.020 ng/mL (0.000-0.055) YD-Oft-M-Type Natriuretic Peptide 1608 pg/mL (0-124) Total Protein 7.1 g/dL (6.4-8.2) Albumin 4.3 g/dL (3.4-5.0) Albumin/Globulin Ratio 1.5 (1.0-1.7) Lipase 107 U/L (73-393) Urine Collection Type Unknown Urine Color [place] Urine Clarity Cloudy Urine pH 5.5 Urine Specific [place] >=1.030 Urine Protein 100 mg/dL (NEG-TRACE) Urine Glucose (UA) Negative mg/dL (NEG) Urine Ketones (Stick) 15 mg/dL (NEG) Urine Blood Negative (NEG) Urine Nitrite Positive (NEG) Urine Bilirubin Moderate (NEG) Urine Urobilinogen Dipstick 1.0 mg/dL (0.2 mg/dL) Urine Leukocyte Esterase Large (NEG) Urine RBC Occ /HPF (0-2) Urine WBC Tntc /HPF (0-4) Urine Squamous Epithelial Cells Few /LPF Urine Bacteria Many /HPF (0-FEW) Urine Hyaline Casts Moderate /HPF Urine Mucus Mod /LPF Glucose (Fingerstick) 312 mg/dL (70-99) Test 04/13/17 11:40 04/13/17 11:49 White Blood Count 18.3 x10^3/uL (4.0-11.0) Red Blood Count 2.45 x10^6/uL (3.50-5.40) Hemoglobin 6.8 g/dL (12.0-15.5) Hematocrit 19.4 % (36.0-47.0) Mean Corpuscular Volume 79 fL (79-100) Mean Corpuscular Hemoglobin 28 pg (25-35) Mean Corpuscular Hemoglobin Concent 35 g/dL (31-37) Red Cell Distribution Width 26.1 % (11.5-14.5) Platelet Count 119 x10^3/uL (140-400) Neutrophils (%) (Auto) 91 % (31-73) Lymphocytes (%) (Auto) 5 % (24-48) Monocytes (%) (Auto) 4 % (0-9) Eosinophils (%) (Auto) 0 % (0-3) Basophils (%) (Auto) 0 % (0-3) Neutrophils # (Auto) 16.6 x10^3uL (1.8-7.7) Lymphocytes # (Auto) 1.0 x10^3/uL (1.0-4.8) Monocytes # (Auto) 0.7 x10^3/uL (0.0-1.1) Eosinophils # (Auto) 0.0 x10^3/uL (0.0-0.7) Basophils # (Auto) 0.0 x10^3/uL (0.0-0.2) Glucose (Fingerstick) 321 mg/dL (70-99) IMAGES IMAGES CT abd / pelvis IMPRESSION: 1. Hepatosplenomegaly. 2. Small to moderate amount free fluid is seen within the abdomen/pelvis. 3. No additional acute abnormality is seen. ECHOCARDIOGRAM ECHOCARDIOGRAM pending ASSESSMENT/PLAN ASSESSMENT/PLAN 1. elevated BNP without overt heart failure - echocardiogram pending. 2. Hypertension - continue home antihypertensives 3. abd pain as per PCP No overt heart failure currently. Will await echocardiogram and further recs to follow. Problems: ALEKSANKET APRN Apr 13, 2017 13:19
[2017-04-13 14:22] LABS: NEG OBC FOB NEG; POS OBC FOB POS
[2017-04-13 14:43] VITALS: BP 115/43
--- NOTE | 2017-04-13 15:13 | ACF ---
Admission Forms Criteria URINARY COMPLICATIONS Clinical Indications for Inpatient Care (Place 'X' for any and all applicable criteria): Ongoing inpatient care may be indicated for urinary complications with ANY ONE of the following: [X ]I. Urinary tract infection requiring inpatient care as indicated by ANY ONE of the following(8)(19)(20): [ ]a) Severe symptoms (eg, high fever, severe pain) [ ]b) Vomiting or dehydration requiring ongoing inpatient care [X ]c) IV antibiotic needs that cannot be managed at lower level of care [ ]d) Hemodynamic instability [ ]e) Obstruction of collecting system by stone or tumor [ ]II. Urinary retention requiring drainage or surgery (3)(4)(5)(17)(18) [ ]III. Renal failure (Use Renal Failure Criteria for further information.) [ ]IV. Oliguria(30) [ ]V. Post obstructive diuresis requiring close monitoring of urine output and intravenous compensation for excessive fluid losses(33) Extended stay beyond goal length of stay for primary condition may be needed until ALL of the following are present(3)(4)(5)(8): [ ]a) Renal function (creatinine) at baseline, or daily decreases in creatinine consistent with renal function return [ ]b) Voiding adequately or with urinary catheter or percutaneous suprapubic tube and management regimen in place that is performable at lower level of care. [ ]c) Urine output adequate [ ]d) Fever absent or resolving [ ]e) Infection absent or treatable at next level of care The original [employer] content created by [employer] has been revised. The portions of the content which have been revised are identified through the use of italic text or in bold, and [facility] has neither reviewed nor approved the modified material. All other unmodified content is copyright [employer] Please see references footnoted in the original [employer] edition 2016 Admission Criteria Met?: Yes KELLY DE LA ROSA Apr 13, 2017 15:13
[2017-04-13 15:18] LABS: % SAT IRON 5 % (15-34); FOLATE 23.64 ng/ml (3.2-20.0); IRON,SERUM 11 ug/dL (50-170)
[2017-04-13 15:32] LABS: FERRITIN 668 ng/mL (8-252); LACTATE DEHYDROGENASE 184 U/L (81-234)
--- NOTE | 2017-04-13 16:11 | PDOC1 ---
HISTORY AND PHYSICAL Chief Complaint Chief Complaint This is 51 year old female has been admitted with a chief complaint of abd pain and found to have uti ,esteban wbc 19, ct scan showed,no major abnormalities. Pt from [facility]. She has h/o cervical spinal stenosis and wheel chair bound ,had surgery 3 yrs ago.she also has DM and hereditary spherocytosis. anemia chronic. Problems: Past Medical History Cardiovascular: HTN CENTRAL NERVOUS SYSTEM: Other (cervical spinal stenosis) GI: Constipation Heme/Onc: Iron deficiency Anemia, Other (hereditory spherocytosis) Hepatobiliary: Cholelithiasis Psych: Other Renal/: UTI, Urinary Incontinence, Other Endocrine: Diabetes Past Surgical History Past Surgical History: Cholecystectomy, Other (cervical spine surgery) Past Family History Family History: Obesity Past Social History PSH no smoking or alcohol, pt from alf [facility] Review of Symptoms Review of Symptoms General ROS: positive for abd pain. Psychological ROS: negative Ophthalmic ROS: negative ENT ROS: negative Allergy and Immunology ROS: negative Hematology and Lymphatic: negative Endocrine ROS: negative Respiratory ROS: no cold, cough, dyspnea. Cardiovascular ROS: no chest pain or dyspnea on exertion Gastrointestinal ROS: positive abdominal pain, Genito-Urinary ROS: yes dysuria, trouble voiding, or hematuria Musculoskeletal ROS: no pain Neurological ROS: negative Dermatological ROS: no rash Medications Current Medications Acetaminophen (Tylenol) 650 mg PRN Q4HRS PRN PO FEVER; Start 04/13/17 at 01:30; Stop 04/14/17 at 01:29 Acetaminophen (Tylenol) 650 mg PRN Q8HRS PRN PO PAIN; Start 04/13/17 at 09:45 Acetaminophen/ Codeine Phosphate (Tylenol #3) 1 tab PRN Q4HRS PRN PO PAIN; Start 04/13/17 at 09:45 Al Hydroxide/Mg Hydroxide (Mylanta Plus Xs) 30 ml PRN DAILY PRN PO CONSTIPATION ; Start 04/13/17 at 09:45 Albuterol/ Ipratropium (Duoneb) 3 ml [id number] IH Last administered on 04/13/17 10 :56; Start 04/13/17 at 10:00 Artificial Tears (Artificial Tears) 1 drop QID OU Last administered on 12:37; Start 04/13/17 at 10:15 Baclofen (Lioresal) 10 mg QID PO ; Start 04/13/17 at 13:00 Ceftriaxone Sodium 1 gm/ Sodium Chloride 50 ml @ 100 mls/hr Q24H IV ; Start 04/13/17 at 23:00 Ceftriaxone Sodium 50 ml @ 100 mls/hr 1X ONCE IV Last administered on 01:38; Start 04/13/17 at 01:30; Stop 04/13/17 at 01:59; Status DC Cyanocobalamin (Vitamin B-12) 1,000 mcg QMONTH IM ; Start 04/27/17 at 09:00 Cyclobenzaprine HCl (Flexeril) 5 mg BID PO Last administered on 04/13/17 12:37 ; Start 04/13/17 at 10:15 Dextrose (Dextrose 50%-Water Syringe) 12.5 gm PRN Q15MIN PRN IV SEE COMMENTS; Start 04/13/17 at 02:00 Dextrose (Dextrose 50%-Water Syringe) 12.5 gm PRN Q15MIN PRN IV SEE COMMENTS; Start 04/13/17 at 10:00 Enoxaparin Sodium (Lovenox 40mg Syringe) 40 mg Q24H SQ ; Start 04/13/17 at 10:00 ; Stop 04/13/17 at 14:46; Status DC Escitalopram Oxalate (Lexapro) 20 mg DAILY PO Last administered on 04/13/17 12: 39; Start 04/13/17 at 11:00 Famotidine (Pepcid) 20 mg HS PO ; Start 04/13/17 at 21:00 Fentanyl Citrate (Fentanyl 2ml Vial) 25 mcg PRN Q15MIN PRN IV PAIN GREATER THAN 3/10 Last administered on 04/12/17 23:33; Start 04/12/17 at 23:15; Stop 04/13 at 03:00; Status DC Fentanyl Citrate (Fentanyl 2ml Vial) 50 mcg PRN Q2HR PRN IV SEVERE PAIN Last administered on 04/13/17 03:23; Start 04/13/17 at 01:30; Stop 04/14/17 at 01:29 Fluticasone Propionate (Flonase) 2 spray DAILY NS ; Start 04/13/17 at 10:00; Stop 04/13/17 at 10:30; Status DC Fluticasone Propionate (Flonase) 2 spray DAILY NS Last administered on 12:38; Start 04/13/17 at 11:00 Folic Acid (Folic Acid) 1 mg DAILY PO Last administered on 04/13/17 12:35; Start 04/13/17 at 10:00 Furosemide (Lasix) 20 mg DAILY PO Last administered on 04/13/17 12:35; Start at 10:00; Stop 04/13/17 at 14:46; Status DC Gabapentin (Neurontin) 100 mg BID PO Last administered on 04/13/17 12:36; Start 04/13/17 at 10:00 Info (Do NOT chart on this entry -- for MONITORING) 1 each PRN DAILY PRN MC SEE COMMENTS; Start 04/12/17 at 23:45; Stop 04/14/17 at 23:44 Insulin Aspart (NovoLOG) 0-5 UNITS TIDWMEALS SQ Last administered on 04/13/17 12:55; Start 04/13/17 at 08:00 Insulin Aspart (NovoLOG) 0-7 UNITS TIDWMEALS SQ ; Start 04/13/17 at 12:00 Insulin Aspart (NovoLOG) 7 units TIDBFRMEAL SQ Last administered on 04/13/17 12 :57; Start 04/13/17 at 11:30 Iohexol (Omnipaque 300 Mg/ml) 75 ml 1X ONCE IV Last administered on 04/13/17 00:09; Start 04/12/17 at 23:45; Stop 04/12/17 at 23:46; Status DC Magnesium Hydroxide (Milk Of Magnesia) 2,400 mg PRN DAILY PRN PO CONSTIPATION; Start 04/13/17 at 09:45 Metformin HCl (Glucophage) 850 mg BIDWMEALS PO ; Start 04/15/17 at 08:00 Multivitamins (Thera M Plus) 1 tab DAILY PO Last administered on 04/13/17 12:36 ; Start 04/13/17 at 10:00 Non-Formulary Medication 1 mg PRN PRN IJ HYPOGLYCEMIA; Start 04/13/17 at 09:45 Ondansetron HCl (Zofran) 4 mg 1X ONCE IV Last administered on 04/12/17 23:33; Start 04/12/17 at 23:30; Stop 04/12/17 at 23:31; Status DC Ondansetron HCl (Zofran) 4 mg PRN Q8HRS PRN IV NAUSEA/VOMITING; Start 04/13/17 at 01:30; Stop 04/14/17 at 01:29 Potassium Chloride (Klor-Con) 10 meq DAILYWBKFT PO Last administered on 12:35; Start 04/13/17 at 10:00 Senna/Docusate Sodium (Senna Plus) 1 tab BID PO Last administered on 04/13/17 12:36; Start 04/13/17 at 10:00 Sucralfate (Carafate) 1 gm TIDAC PO Last administered on 04/13/17 12:39; Start 04/13/17 at 11:30 Allergy Allergies Coded Allergies Type Severity Reaction Last Updated Verified No Known Drug Allergies 12/19/16 No Physical Exam Physical Exam General appearance - alert,well appearing, and in no distress and oriented to person, Mental Status - alert, oriented to person, place, and time, affect appropriate to mood Head - normal Chest - clear to auscultation, no wheezes, rales or rhonchi, symmetric air entry Heart - S1 and S2 normal Abdomen - soft, mildly tender supra pubic, nondistended, no masses or organomegaly Neurological - alert and oriented Musculoskeletal - spasticity hands and legs ,from cervical stenosis, wheel chair bound Extremities - no pedal edema Skin - warm and dry Labs Laboratory Tests Test 04/12/17 22:50 04/13/17 00:28 04/13/17 03:12 04/13/17 07:56 White Blood Count 19.2 x10^3/uL (4.0-11.0) Red Blood Count 3.18 x10^6/uL (3.50-5.40) Hemoglobin 9.0 g/dL (12.0-15.5) Hematocrit 26.6 % (36.0-47.0) Mean Corpuscular Volume 84 fL (79-100) Mean Corpuscular Hemoglobin 28 pg (25-35) Mean Corpuscular Hemoglobin Concent 34 g/dL (31-37) Red Cell Distribution Width 27.2 % (11.5-14.5) Platelet Count 139 x10^3/uL (140-400) Neutrophils (%) (Auto) 96 % (31-73) Lymphocytes (%) (Auto) 1 % (24-48) Monocytes (%) (Auto) 3 % (0-9) Eosinophils (%) (Auto) 0 % (0-3) Basophils (%) (Auto) 0 % (0-3) Neutrophils # (Auto) 18.4 x10^3uL (1.8-7.7) Lymphocytes # (Auto) 0.2 x10^3/uL (1.0-4.8) Monocytes # (Auto) 0.5 x10^3/uL (0.0-1.1) Eosinophils # (Auto) 0.0 x10^3/uL (0.0-0.7) Basophils # (Auto) 0.0 x10^3/uL (0.0-0.2) Segmented Neutrophils % 70 % (35-66) Band Neutrophils % 27 % (0-9) Lymphocytes % 2 % (24-48) Monocytes % 1 % (0-10) Nucleated Red Blood Cells 1 Platelet Estimate Adequate (ADEQUATE) Polychromasia Mod Poikilocytosis Slight Basophilic Stippling Present Anisocytosis Mod Spherocytes Present Reyes-Cogswell Bodies Present Schistocytes Occ Sodium Level 146 mmol/L (136-145) Potassium Level 4.2 mmol/L (3.5-5.1) Chloride Level 107 mmol/L (98-107) Carbon Dioxide Level 26 mmol/L (21-32) Anion Gap 13 (6-14) Blood Urea Nitrogen 31 mg/dL (7-20) Creatinine 1.2 mg/dL (0.6-1.0) Estimated GFR (Cockcroft-Gault) 47.7 BUN/Creatinine Ratio 26 (6-20) Glucose Level 253 mg/dL (70-99) Calcium Level 8.4 mg/dL (8.5-10.1) Total Bilirubin 4.0 mg/dL (0.2-1.0) Aspartate Amino Transf (AST/SGOT) 12 U/L (15-37) Alanine Aminotransferase (ALT/SGPT) 12 U/L (14-59) Alkaline Phosphatase 67 U/L (46-116) Troponin I Quantitative 0.020 ng/mL (0.000-0.055) EP-Gqf-N-Type Natriuretic Peptide 1608 pg/mL (0-124) Total Protein 7.1 g/dL (6.4-8.2) Albumin 4.3 g/dL (3.4-5.0) Albumin/Globulin Ratio 1.5 (1.0-1.7) Lipase 107 U/L (73-393) Urine Collection Type Unknown Urine Color [place] Urine Clarity Cloudy Urine pH 5.5 Urine Specific [place] >=1.030 Urine Protein 100 mg/dL (NEG-TRACE) Urine Glucose (UA) Negative mg/dL (NEG) Urine Ketones (Stick) 15 mg/dL (NEG) Urine Blood Negative (NEG) Urine Nitrite Positive (NEG) Urine Bilirubin Moderate (NEG) Urine Urobilinogen Dipstick 1.0 mg/dL (0.2 mg/dL) Urine Leukocyte Esterase Large (NEG) Urine RBC Occ /HPF (0-2) Urine WBC Tntc /HPF (0-4) Urine Squamous Epithelial Cells Few /LPF Urine Bacteria Many /HPF (0-FEW) Urine Hyaline Casts Moderate /HPF Urine Mucus Mod /LPF Nasal Screen MRSA (PCR) Negative (Negative) Glucose (Fingerstick) 312 mg/dL (70-99) Test 04/13/17 11:00 04/13/17 11:40 04/13/17 11:49 04/13/17 13:30 Sodium Level 142 mmol/L (136-145) Potassium Level 4.1 mmol/L (3.5-5.1) Chloride Level 105 mmol/L (98-107) Carbon Dioxide Level 22 mmol/L (21-32) Anion Gap 15 (6-14) Blood Urea Nitrogen 36 mg/dL (7-20) Creatinine 1.1 mg/dL (0.6-1.0) Estimated GFR (Cockcroft-Gault) 52.8 Glucose Level 333 mg/dL (70-99) Calcium Level 7.7 mg/dL (8.5-10.1) White Blood Count 18.3 x10^3/uL (4.0-11.0) Red Blood Count 2.45 x10^6/uL (3.50-5.40) Hemoglobin 6.8 g/dL (12.0-15.5) Hematocrit 19.4 % (36.0-47.0) Mean Corpuscular Volume 79 fL (79-100) Mean Corpuscular Hemoglobin 28 pg (25-35) Mean Corpuscular Hemoglobin Concent 35 g/dL (31-37) Red Cell Distribution Width 26.1 % (11.5-14.5) Platelet Count 119 x10^3/uL (140-400) Neutrophils (%) (Auto) 91 % (31-73) Lymphocytes (%) (Auto) 5 % (24-48) Monocytes (%) (Auto) 4 % (0-9) Eosinophils (%) (Auto) 0 % (0-3) Basophils (%) (Auto) 0 % (0-3) Neutrophils # (Auto) 16.6 x10^3uL (1.8-7.7) Lymphocytes # (Auto) 1.0 x10^3/uL (1.0-4.8) Monocytes # (Auto) 0.7 x10^3/uL (0.0-1.1) Eosinophils # (Auto) 0.0 x10^3/uL (0.0-0.7) Basophils # (Auto) 0.0 x10^3/uL (0.0-0.2) Glucose (Fingerstick) 321 mg/dL (70-99) Stool Occult Blood Negative (NEG) Test 04/13/17 14:30 04/13/17 16:04 Reticulocyte Count (auto) 6.8 % (0.5-2.5) Iron Level 11 ug/dL (50-170) Total Iron Binding Capacity 225 ug/dL (250-450) Iron Saturation 5 % (15-34) Ferritin 668 ng/mL (8-252) Lactate Dehydrogenase 184 U/L (81-234) Vitamin B12 Level 467 pg/mL (247-911) Serum Folate 23.64 ng/ml (3.2-20.0) Glucose (Fingerstick) 170 mg/dL (70-99) Laboratory Tests Test 04/12/17 22:50 04/13/17 00:28 04/13/17 03:12 04/13/17 07:56 White Blood Count 19.2 x10^3/uL (4.0-11.0) Red Blood Count 3.18 x10^6/uL (3.50-5.40) Hemoglobin 9.0 g/dL (12.0-15.5) Hematocrit 26.6 % (36.0-47.0) Mean Corpuscular Volume 84 fL (79-100) Mean Corpuscular Hemoglobin 28 pg (25-35) Mean Corpuscular Hemoglobin Concent 34 g/dL (31-37) Red Cell Distribution Width 27.2 % (11.5-14.5) Platelet Count 139 x10^3/uL (140-400) Neutrophils (%) (Auto) 96 % (31-73) Lymphocytes (%) (Auto) 1 % (24-48) Monocytes (%) (Auto) 3 % (0-9) Eosinophils (%) (Auto) 0 % (0-3) Basophils (%) (Auto) 0 % (0-3) Neutrophils # (Auto) 18.4 x10^3uL (1.8-7.7) Lymphocytes # (Auto) 0.2 x10^3/uL (1.0-4.8) Monocytes # (Auto) 0.5 x10^3/uL (0.0-1.1) Eosinophils # (Auto) 0.0 x10^3/uL (0.0-0.7) Basophils # (Auto) 0.0 x10^3/uL (0.0-0.2) Segmented Neutrophils % 70 % (35-66) Band Neutrophils % 27 % (0-9) Lymphocytes % 2 % (24-48) Monocytes % 1 % (0-10) Nucleated Red Blood Cells 1 Platelet Estimate Adequate (ADEQUATE) Polychromasia Mod Poikilocytosis Slight Basophilic Stippling Present Anisocytosis Mod Spherocytes Present Reyes-Cogswell Bodies Present Schistocytes Occ Sodium Level 146 mmol/L (136-145) Potassium Level 4.2 mmol/L (3.5-5.1) Chloride Level 107 mmol/L (98-107) Carbon Dioxide Level 26 mmol/L (21-32) Anion Gap 13 (6-14) Blood Urea Nitrogen 31 mg/dL (7-20) Creatinine 1.2 mg/dL (0.6-1.0) Estimated GFR (Cockcroft-Gault) 47.7 BUN/Creatinine Ratio 26 (6-20) Glucose Level 253 mg/dL (70-99) Calcium Level 8.4 mg/dL (8.5-10.1) Total Bilirubin 4.0 mg/dL (0.2-1.0) Aspartate Amino Transf (AST/SGOT) 12 U/L (15-37) Alanine Aminotransferase (ALT/SGPT) 12 U/L (14-59) Alkaline Phosphatase 67 U/L (46-116) Troponin I Quantitative 0.020 ng/mL (0.000-0.055) WR-Vds-D-Type Natriuretic Peptide 1608 pg/mL (0-124) Total Protein 7.1 g/dL (6.4-8.2) Albumin 4.3 g/dL (3.4-5.0) Albumin/Globulin Ratio 1.5 (1.0-1.7) Lipase 107 U/L (73-393) Urine Collection Type Unknown Urine Color [place] Urine Clarity Cloudy Urine pH 5.5 Urine Specific [place] >=1.030 Urine Protein 100 mg/dL (NEG-TRACE) Urine Glucose (UA) Negative mg/dL (NEG) Urine Ketones (Stick) 15 mg/dL (NEG) Urine Blood Negative (NEG) Urine Nitrite Positive (NEG) Urine Bilirubin Moderate (NEG) Urine Urobilinogen Dipstick 1.0 mg/dL (0.2 mg/dL) Urine Leukocyte Esterase Large (NEG) Urine RBC Occ /HPF (0-2) Urine WBC Tntc /HPF (0-4) Urine Squamous Epithelial Cells Few /LPF Urine Bacteria Many /HPF (0-FEW) Urine Hyaline Casts Moderate /HPF Urine Mucus Mod /LPF Nasal Screen MRSA (PCR) Negative (Negative) Glucose (Fingerstick) 312 mg/dL (70-99) Test 04/13/17 11:00 04/13/17 11:40 04/13/17 11:49 04/13/17 13:30 Sodium Level 142 mmol/L (136-145) Potassium Level 4.1 mmol/L (3.5-5.1) Chloride Level 105 mmol/L (98-107) Carbon Dioxide Level 22 mmol/L (21-32) Anion Gap 15 (6-14) Blood Urea Nitrogen 36 mg/dL (7-20) Creatinine 1.1 mg/dL (0.6-1.0) Estimated GFR (Cockcroft-Gault) 52.8 Glucose Level 333 mg/dL (70-99) Calcium Level 7.7 mg/dL (8.5-10.1) White Blood Count 18.3 x10^3/uL (4.0-11.0) Red Blood Count 2.45 x10^6/uL (3.50-5.40) Hemoglobin 6.8 g/dL (12.0-15.5) Hematocrit 19.4 % (36.0-47.0) Mean Corpuscular Volume 79 fL (79-100) Mean Corpuscular Hemoglobin 28 pg (25-35) Mean Corpuscular Hemoglobin Concent 35 g/dL (31-37) Red Cell Distribution Width 26.1 % (11.5-14.5) Platelet Count 119 x10^3/uL (140-400) Neutrophils (%) (Auto) 91 % (31-73) Lymphocytes (%) (Auto) 5 % (24-48) Monocytes (%) (Auto) 4 % (0-9) Eosinophils (%) (Auto) 0 % (0-3) Basophils (%) (Auto) 0 % (0-3) Neutrophils # (Auto) 16.6 x10^3uL (1.8-7.7) Lymphocytes # (Auto) 1.0 x10^3/uL (1.0-4.8) Monocytes # (Auto) 0.7 x10^3/uL (0.0-1.1) Eosinophils # (Auto) 0.0 x10^3/uL (0.0-0.7) Basophils # (Auto) 0.0 x10^3/uL (0.0-0.2) Glucose (Fingerstick) 321 mg/dL (70-99) Stool Occult Blood Negative (NEG) Test 04/13/17 14:30 04/13/17 16:04 Reticulocyte Count (auto) 6.8 % (0.5-2.5) Iron Level 11 ug/dL (50-170) Total Iron Binding Capacity 225 ug/dL (250-450) Iron Saturation 5 % (15-34) Ferritin 668 ng/mL (8-252) Lactate Dehydrogenase 184 U/L (81-234) Vitamin B12 Level 467 pg/mL (247-911) Serum Folate 23.64 ng/ml (3.2-20.0) Glucose (Fingerstick) 170 mg/dL (70-99) Vitals Vital Signs Date Time Temp Pulse Resp B/P (MAP) Pulse Ox O2 Delivery O2 Flow Rate FiO2 04/13/17 14:43 98.6 81 15 115/43 (67) 96 Room Air 98.6 04/13/17 11:00 2.0 VTE Prophylaxis VTE Prophylaxis Devices: Yes VTE Pharmacological Prophylaxi: Yes Assessment Assessment abd pain uti dm anemia hereditiory spherocytosis esteban wbc possible sepsis due to UTI h/o cervical stenosis obesity Plan Plan iv rocephin blood c/s urine c/s CT scan noted pt/ot hematology consult DVT PREVENTION. For more details regarding further plans, please refer to the orders. VIKI TRACY MD Apr 13, 2017 16:11
--- NOTE | 2017-04-13 17:05 | CARD ---
APPROVED REPORT EXAM: Two-dimensional and M-mode echocardiogram with Doppler and color Doppler. Other Information Quality : FairHR: 88bpm Rhythm : NSR INDICATION Elevated BNP 2D DIMENSIONS RVDd2.9 (2.9-3.5cm)Left Atrium(2D)4.2 (1.6-4.0cm) IVSd1.0 (0.7-1.1cm)Aortic Root(2D)2.3 (2.0-3.7cm) LVDd5.4 (3.9-5.9cm)LVOT Diameter2.0 (1.8-2.4cm) PWd0.9 (0.7-1.1cm)LVDs3.4 (2.5-4.0cm) FS (%) 37.3 %SV93.8 ml LVEF(%)66.8 (>50%) Mitral Valve MV E Ehbnjcea726.5cm/sMV E Peak Gr.11mmHg MV DECEL [id number] A Erfnhwhm92.7cm/s MV E Mean Gr.3mmHgE/A Ratio1.4 MV A [id number] Pulmonary Valve PV Peak Ucjjhsry014.8cm/s Pulmonary Vein S1 Uwtibsik60.6cm/sD2 Karsvsnw64.5cm/s PVa [id number] LEFT VENTRICLE The left ventricle is normal size. There is normal left ventricular wall thickness. The left ventricu lar systolic function is normal. The Ejection Fraction is 60-65%. There is normal LV segmental wall m otion. The left ventricular diastolic function and filling is normal for age. RIGHT VENTRICLE The right ventricle is normal size. There is normal right ventricular wall thickness. The right ventr icular systolic function is normal. ATRIA The left atrium is mildly dilated. The right atrium size is normal. The interatrial septum is intact with no evidence for an atrial septal defect or patent foramen ovale as noted on 2-D or Doppler imagi ng. AORTIC VALVE The aortic valve is mildly thickened. The aortic valve is trileaflet. Doppler and Color Flow revealed no significant aortic regurgitation. There is no significant aortic valvular stenosis. MITRAL VALVE The mitral valve leaflets are mildly calcified. There is no evidence of mitral valve prolapse. There is no mitral valve stenosis. Doppler and Color-flow revealed trace mitral regurgitation. TRICUSPID VALVE Doppler and Color Flow revealed no tricuspid valve regurgitation noted. Unable to determine pulmonary artery pressure at exam time. PULMONIC VALVE The pulmonary valve is not well visualized but appears to opens well. Doppler and Color Flow revealed trace pulmonic valvular regurgitation. There is no pulmonic valvular stenosis by spectral Doppler. GREAT VESSELS The aortic root is normal in size. The ascending aorta is normal in size. The pulmonary artery is nor mal. The IVC was obscured, unable to assess. PERICARDIAL EFFUSION There is no evidence of significant pericardial effusion. Critical Notification Critical Value: No <Conclusion> The left ventricular systolic function is normal. The Ejection Fraction is 60-65%. There is normal LV segmental wall motion. The left atrium is mildly dilated. Trace mitral regurgitation. There is no evidence of significant pericardial effusion.
--- NOTE | 2017-04-13 18:39 | PDOC2 ---
CONSULT Date of Consult Date of Consult DATE: 04/13/17 TIME: 18:31 Past Medical History Cardiovascular: HTN CENTRAL NERVOUS SYSTEM: Other (cervical spinal stenosis) GI: Constipation Heme/Onc: Iron deficiency Anemia, Other (hereditory spherocytosis) Hepatobiliary: Cholelithiasis Psych: Other Renal/: UTI, Urinary Incontinence, Other Endocrine: Diabetes Past Surgical History Past Surgical History: Cholecystectomy, Other (cervical spine surgery) Family History Family History: Obesity Social History ALCOHOL: none Drugs: None Lives: [facility] Current Problem List Problem List Problems Medical Problems: (1) Abdominal pain Status: Acute (2) Leukocytosis Status: Acute (3) Urinary tract infection Status: Acute Current Medications Current Medications Current Medications Fentanyl Citrate (Fentanyl 2ml Vial) 25 mcg PRN Q15MIN PRN IV PAIN GREATER THAN 3/10 Last administered on 04/12/17 23:33; Start 04/12/17 at 23:15; Stop 04/13 at 03:00; Status DC Ondansetron HCl (Zofran) 4 mg 1X ONCE IV Last administered on 04/12/17 23:33; Start 04/12/17 at 23:30; Stop 04/12/17 at 23:31; Status DC Iohexol (Omnipaque 300 Mg/ml) 75 ml 1X ONCE IV Last administered on 04/13/17 00:09; Start 04/12/17 at 23:45; Stop 04/12/17 at 23:46; Status DC Info (Do NOT chart on this entry -- for MONITORING) 1 each PRN DAILY PRN MC SEE COMMENTS; Start 04/12/17 at 23:45; Stop 04/14/17 at 23:44 Ceftriaxone Sodium 1 gm/ Sodium Chloride 50 ml @ 100 mls/hr Q24H IV ; Start 04/13/17 at 23:00 Ceftriaxone Sodium 50 ml @ 100 mls/hr 1X ONCE IV Last administered on 01:38; Start 04/13/17 at 01:30; Stop 04/13/17 at 01:59; Status DC Ondansetron HCl (Zofran) 4 mg PRN Q8HRS PRN IV NAUSEA/VOMITING; Start 04/13/17 at 01:30; Stop 04/14/17 at 01:29 Fentanyl Citrate (Fentanyl 2ml Vial) 50 mcg PRN Q2HR PRN IV SEVERE PAIN Last administered on 04/13/17 03:23; Start 04/13/17 at 01:30; Stop 04/14/17 at 01:29 Acetaminophen (Tylenol) 650 mg PRN Q4HRS PRN PO FEVER; Start 04/13/17 at 01:30; Stop 04/14/17 at 01:29 Insulin Aspart (NovoLOG) 0-5 UNITS TIDWMEALS SQ Last administered on 04/13/17 12:55; Start 04/13/17 at 08:00; Stop 04/13/17 at 17:00; Status DC Dextrose (Dextrose 50%-Water Syringe) 12.5 gm PRN Q15MIN PRN IV SEE COMMENTS; Start 04/13/17 at 02:00; Stop 04/13/17 at 16:22; Status DC Acetaminophen (Tylenol) 650 mg PRN Q8HRS PRN PO PAIN; Start 04/13/17 at 09:45 Acetaminophen/ Codeine Phosphate (Tylenol #3) 1 tab PRN Q4HRS PRN PO PAIN; Start 04/13/17 at 09:45 Baclofen (Lioresal) 10 mg QID PO Last administered on 04/13/17 17:07; Start 04/13/17 at 13:00 Cyanocobalamin (Vitamin B-12) 1,000 mcg QMONTH IM ; Start 04/27/17 at 09:00 Famotidine (Pepcid) 20 mg HS PO ; Start 04/13/17 at 21:00 Furosemide (Lasix) 20 mg DAILY PO Last administered on 04/13/17 12:35; Start at 10:00; Stop 04/13/17 at 14:46; Status DC Gabapentin (Neurontin) 100 mg BID PO Last administered on 04/13/17 12:36; Start 04/13/17 at 10:00 Insulin Aspart (NovoLOG) 7 units TIDBFRMEAL SQ Last administered on 04/13/17 17 :12; Start 04/13/17 at 11:30 Albuterol/ Ipratropium (Duoneb) 3 ml [id number] IH Last administered on 04/13/17 10 :56; Start 04/13/17 at 10:00 Al Hydroxide/Mg Hydroxide (Mylanta Plus Xs) 30 ml PRN DAILY PRN PO CONSTIPATION ; Start 04/13/17 at 09:45 Magnesium Hydroxide (Milk Of Magnesia) 2,400 mg PRN DAILY PRN PO CONSTIPATION; Start 04/13/17 at 09:45 Metformin HCl (Glucophage) 850 mg BIDWMEALS PO ; Start 04/15/17 at 08:00 Senna/Docusate Sodium (Senna Plus) 1 tab BID PO Last administered on 04/13/17 12:36; Start 04/13/17 at 10:00 Sucralfate (Carafate) 1 gm TIDAC PO Last administered on 04/13/17 17:07; Start 04/13/17 at 11:30 Cyclobenzaprine HCl (Flexeril) 5 mg BID PO Last administered on 04/13/17 12:37 ; Start 04/13/17 at 10:15 Artificial Tears (Artificial Tears) 1 drop QID OU Last administered on 17:07; Start 04/13/17 at 10:15 Escitalopram Oxalate (Lexapro) 20 mg DAILY PO Last administered on 04/13/17 12: 39; Start 04/13/17 at 11:00 Fluticasone Propionate (Flonase) 2 spray DAILY NS ; Start 04/13/17 at 10:00; Stop 04/13/17 at 10:30; Status DC Folic Acid (Folic Acid) 1 mg DAILY PO Last administered on 04/13/17 12:35; Start 04/13/17 at 10:00 Non-Formulary Medication 1 mg PRN PRN IJ HYPOGLYCEMIA; Start 04/13/17 at 09:45 Multivitamins (Thera M Plus) 1 tab DAILY PO Last administered on 04/13/17 12:36 ; Start 04/13/17 at 10:00 Potassium Chloride (Klor-Con) 10 meq [id number] PO Last administered on 12:35; Start 04/13/17 at 10:00 Insulin Aspart (NovoLOG) 0-7 UNITS TIDWMEALS SQ Last administered on 04/13/17 17:12; Start 04/13/17 at 12:00 Dextrose (Dextrose 50%-Water Syringe) 12.5 gm PRN Q15MIN PRN IV SEE COMMENTS; Start 04/13/17 at 10:00 Enoxaparin Sodium (Lovenox 40mg Syringe) 40 mg Q24H SQ ; Start 04/13/17 at 10:00 ; Stop 04/13/17 at 14:46; Status DC Fluticasone Propionate (Flonase) 2 spray DAILY NS Last administered on t 12:38; Start 04/13/17 at 11:00 Active Scripts Active Reported Tylenol With Codeine #3 Tablet (Acetaminophen/Codeine Phosphate) 1 Each Tablet 1 Tab PO PRN Q4HRS PRN Artificial Tears Eye Drops (Dextran 70/Hypromellose) 15 Ml Drops 1 Drop EACHEYE QID Lexapro (Escitalopram Oxalate) 20 Mg Tablet 1 Tab PO DAILY Famotidine 20 Mg Tablet 20 Mg PO HS Metformin Hcl 850 Mg Tablet 850 Mg PO BIDWMEALS Linzess (Linaclotide) 72 Mcg Capsule 145 Mcg PO Potassium Chloride 10 Meq Capsule.er 10 Meq PO DAILY Flonase Allergy Relief (Fluticasone Propionate) 9.9 Ml [place].susp 2 Sprays NS DAILY Glucagen (Glucagon,Human Recombinant) 1 Mg Vial 1 Mg IJ PRN PRN Milk Of Magnesia (Magnesium Hydroxide) 400 Mg/5 Ml Oral.susp 30 Ml PO DAILY PRN Mi Acid Suspension (Mag Hydrox/Al Hydrox/Simeth) 355 Ml Oral.susp 30 Ml PO DAILY PRN Loperamide (Loperamide Hcl) 2 Mg Capsule 2 Mg PO PRN PRN Acetaminophen 325 Mg Tablet 2 Tab PO Q8HRS PRN Sucralfate 1 Gm Tablet 1 Tab PO TID Senna Plus Tablet (Sennosides/Docusate Sodium) 1 Each Tablet 1 Each PO BID Cyanocobalamin Injection (Cyanocobalamin (Vitamin B-12)) 1,000 Mcg/1 Ml Vial 1 Ml IM QMONTH Baclofen 10 Mg Tablet 10 Mg PO QID Novolog Flexpen (Insulin Aspart) 100 Unit/1 Ml Insuln.pen 7 Unit SQ TIDBFRMEAL Duoneb 0.5 Mg-3 Mg/3 Ml Soln (Ipratropium/Albuterol Sulfate) 3 Ml Ampul.neb 3 Ml IH [id number] Multi Vitamin Daily (Multivitamin) 1 Each Tablet 1 Each PO DAILY Gabapentin 100 Mg Capsule 100 Mg PO BID Lasix (Furosemide) 20 Mg Tablet 20 Mg PO DAILY Folic Acid 20 Mg Capsule 1 Mg PO DAILY Cyclobenzaprine Hcl 5 Mg Tablet 5 Mg PO BID Allergies Allergies: Coded Allergies: No Known Drug Allergies (Unverified , 12/19/16) Vitals VITALS Vital Signs Date Time Temp Pulse Resp B/P (MAP) Pulse Ox O2 Delivery O2 Flow Rate FiO2 04/13/17 14:43 98.6 81 15 115/43 (67) 96 Room Air 98.6 04/13/17 11:00 2.0 Labs Labs Laboratory Tests Test 04/12/17 22:50 04/13/17 00:28 04/13/17 03:12 04/13/17 07:56 White Blood Count 19.2 x10^3/uL (4.0-11.0) Red Blood Count 3.18 x10^6/uL (3.50-5.40) Hemoglobin 9.0 g/dL (12.0-15.5) Hematocrit 26.6 % (36.0-47.0) Mean Corpuscular Volume 84 fL (79-100) Mean Corpuscular Hemoglobin 28 pg (25-35) Mean Corpuscular Hemoglobin Concent 34 g/dL (31-37) Red Cell Distribution Width 27.2 % (11.5-14.5) Platelet Count 139 x10^3/uL (140-400) Neutrophils (%) (Auto) 96 % (31-73) Lymphocytes (%) (Auto) 1 % (24-48) Monocytes (%) (Auto) 3 % (0-9) Eosinophils (%) (Auto) 0 % (0-3) Basophils (%) (Auto) 0 % (0-3) Neutrophils # (Auto) 18.4 x10^3uL (1.8-7.7) Lymphocytes # (Auto) 0.2 x10^3/uL (1.0-4.8) Monocytes # (Auto) 0.5 x10^3/uL (0.0-1.1) Eosinophils # (Auto) 0.0 x10^3/uL (0.0-0.7) Basophils # (Auto) 0.0 x10^3/uL (0.0-0.2) Segmented Neutrophils % 70 % (35-66) Band Neutrophils % 27 % (0-9) Lymphocytes % 2 % (24-48) Monocytes % 1 % (0-10) Nucleated Red Blood Cells 1 Platelet Estimate Adequate (ADEQUATE) Polychromasia Mod Poikilocytosis Slight Basophilic Stippling Present Anisocytosis Mod Spherocytes Present [place] Bodies Present Schistocytes Occ Sodium Level 146 mmol/L (136-145) Potassium Level 4.2 mmol/L (3.5-5.1) Chloride Level 107 mmol/L (98-107) Carbon Dioxide Level 26 mmol/L (21-32) Anion Gap 13 (6-14) Blood Urea Nitrogen 31 mg/dL (7-20) Creatinine 1.2 mg/dL (0.6-1.0) Estimated GFR (Cockcroft-Gault) 47.7 BUN/Creatinine Ratio 26 (6-20) Glucose Level 253 mg/dL (70-99) Calcium Level 8.4 mg/dL (8.5-10.1) Total Bilirubin 4.0 mg/dL (0.2-1.0) Aspartate Amino Transf (AST/SGOT) 12 U/L (15-37) Alanine Aminotransferase (ALT/SGPT) 12 U/L (14-59) Alkaline Phosphatase 67 U/L (46-116) Troponin I Quantitative 0.020 ng/mL (0.000-0.055) OY-Gfi-H-Type Natriuretic Peptide 1608 pg/mL (0-124) Total Protein 7.1 g/dL (6.4-8.2) Albumin 4.3 g/dL (3.4-5.0) Albumin/Globulin Ratio 1.5 (1.0-1.7) Lipase 107 U/L (73-393) Urine Collection Type Unknown Urine Color [place] Urine Clarity Cloudy Urine pH 5.5 Urine Specific [place] >=1.030 Urine Protein 100 mg/dL (NEG-TRACE) Urine Glucose (UA) Negative mg/dL (NEG) Urine Ketones (Stick) 15 mg/dL (NEG) Urine Blood Negative (NEG) Urine Nitrite Positive (NEG) Urine Bilirubin Moderate (NEG) Urine Urobilinogen Dipstick 1.0 mg/dL (0.2 mg/dL) Urine Leukocyte Esterase Large (NEG) Urine RBC Occ /HPF (0-2) Urine WBC Tntc /HPF (0-4) Urine Squamous Epithelial Cells Few /LPF Urine Bacteria Many /HPF (0-FEW) Urine Hyaline Casts Moderate /HPF Urine Mucus Mod /LPF Nasal Screen MRSA (PCR) Negative (Negative) Glucose (Fingerstick) 312 mg/dL (70-99) Test 04/13/17 11:00 04/13/17 11:40 04/13/17 11:49 04/13/17 13:30 Sodium Level 142 mmol/L (136-145) Potassium Level 4.1 mmol/L (3.5-5.1) Chloride Level 105 mmol/L (98-107) Carbon Dioxide Level 22 mmol/L (21-32) Anion Gap 15 (6-14) Blood Urea Nitrogen 36 mg/dL (7-20) Creatinine 1.1 mg/dL (0.6-1.0) Estimated GFR (Cockcroft-Gault) 52.8 Glucose Level 333 mg/dL (70-99) Calcium Level 7.7 mg/dL (8.5-10.1) White Blood Count 18.3 x10^3/uL (4.0-11.0) Red Blood Count 2.45 x10^6/uL (3.50-5.40) Hemoglobin 6.8 g/dL (12.0-15.5) Hematocrit 19.4 % (36.0-47.0) Mean Corpuscular Volume 79 fL (79-100) Mean Corpuscular Hemoglobin 28 pg (25-35) Mean Corpuscular Hemoglobin Concent 35 g/dL (31-37) Red Cell Distribution Width 26.1 % (11.5-14.5) Platelet Count 119 x10^3/uL (140-400) Neutrophils (%) (Auto) 91 % (31-73) Lymphocytes (%) (Auto) 5 % (24-48) Monocytes (%) (Auto) 4 % (0-9) Eosinophils (%) (Auto) 0 % (0-3) Basophils (%) (Auto) 0 % (0-3) Neutrophils # (Auto) 16.6 x10^3uL (1.8-7.7) Lymphocytes # (Auto) 1.0 x10^3/uL (1.0-4.8) Monocytes # (Auto) 0.7 x10^3/uL (0.0-1.1) Eosinophils # (Auto) 0.0 x10^3/uL (0.0-0.7) Basophils # (Auto) 0.0 x10^3/uL (0.0-0.2) Glucose (Fingerstick) 321 mg/dL (70-99) Stool Occult Blood Negative (NEG) Test 04/13/17 14:30 04/13/17 16:04 Reticulocyte Count (auto) 6.8 % (0.5-2.5) Iron Level 11 ug/dL (50-170) Total Iron Binding Capacity 225 ug/dL (250-450) Iron Saturation 5 % (15-34) Ferritin 668 ng/mL (8-252) Lactate Dehydrogenase 184 U/L (81-234) Vitamin B12 Level 467 pg/mL (247-911) Serum Folate 23.64 ng/ml (3.2-20.0) Glucose (Fingerstick) 170 mg/dL (70-99) Laboratory Tests Test 04/12/17 22:50 04/13/17 00:28 04/13/17 03:12 04/13/17 07:56 White Blood Count 19.2 x10^3/uL (4.0-11.0) Red Blood Count 3.18 x10^6/uL (3.50-5.40) Hemoglobin 9.0 g/dL (12.0-15.5) Hematocrit 26.6 % (36.0-47.0) Mean Corpuscular Volume 84 fL (79-100) Mean Corpuscular Hemoglobin 28 pg (25-35) Mean Corpuscular Hemoglobin Concent 34 g/dL (31-37) Red Cell Distribution Width 27.2 % (11.5-14.5) Platelet Count 139 x10^3/uL (140-400) Neutrophils (%) (Auto) 96 % (31-73) Lymphocytes (%) (Auto) 1 % (24-48) Monocytes (%) (Auto) 3 % (0-9) Eosinophils (%) (Auto) 0 % (0-3) Basophils (%) (Auto) 0 % (0-3) Neutrophils # (Auto) 18.4 x10^3uL (1.8-7.7) Lymphocytes # (Auto) 0.2 x10^3/uL (1.0-4.8) Monocytes # (Auto) 0.5 x10^3/uL (0.0-1.1) Eosinophils # (Auto) 0.0 x10^3/uL (0.0-0.7) Basophils # (Auto) 0.0 x10^3/uL (0.0-0.2) Segmented Neutrophils % 70 % (35-66) Band Neutrophils % 27 % (0-9) Lymphocytes % 2 % (24-48) Monocytes % 1 % (0-10) Nucleated Red Blood Cells 1 Platelet Estimate Adequate (ADEQUATE) Polychromasia Mod Poikilocytosis Slight Basophilic Stippling Present Anisocytosis Mod Spherocytes Present [place] Bodies Present Schistocytes Occ Sodium Level 146 mmol/L (136-145) Potassium Level 4.2 mmol/L (3.5-5.1) Chloride Level 107 mmol/L (98-107) Carbon Dioxide Level 26 mmol/L (21-32) Anion Gap 13 (6-14) Blood Urea Nitrogen 31 mg/dL (7-20) Creatinine 1.2 mg/dL (0.6-1.0) Estimated GFR (Cockcroft-Gault) 47.7 BUN/Creatinine Ratio 26 (6-20) Glucose Level 253 mg/dL (70-99) Calcium Level 8.4 mg/dL (8.5-10.1) Total Bilirubin 4.0 mg/dL (0.2-1.0) Aspartate Amino Transf (AST/SGOT) 12 U/L (15-37) Alanine Aminotransferase (ALT/SGPT) 12 U/L (14-59) Alkaline Phosphatase 67 U/L (46-116) Troponin I Quantitative 0.020 ng/mL (0.000-0.055) TT-Wzd-V-Type Natriuretic Peptide 1608 pg/mL (0-124) Total Protein 7.1 g/dL (6.4-8.2) Albumin 4.3 g/dL (3.4-5.0) Albumin/Globulin Ratio 1.5 (1.0-1.7) Lipase 107 U/L (73-393) Urine Collection Type Unknown Urine Color [place] Urine Clarity Cloudy Urine pH 5.5 Urine Specific [place] >=1.030 Urine Protein 100 mg/dL (NEG-TRACE) Urine Glucose (UA) Negative mg/dL (NEG) Urine Ketones (Stick) 15 mg/dL (NEG) Urine Blood Negative (NEG) Urine Nitrite Positive (NEG) Urine Bilirubin Moderate (NEG) Urine Urobilinogen Dipstick 1.0 mg/dL (0.2 mg/dL) Urine Leukocyte Esterase Large (NEG) Urine RBC Occ /HPF (0-2) Urine WBC Tntc /HPF (0-4) Urine Squamous Epithelial Cells Few /LPF Urine Bacteria Many /HPF (0-FEW) Urine Hyaline Casts Moderate /HPF Urine Mucus Mod /LPF Nasal Screen MRSA (PCR) Negative (Negative) Glucose (Fingerstick) 312 mg/dL (70-99) Test 04/13/17 11:00 04/13/17 11:40 04/13/17 11:49 04/13/17 13:30 Sodium Level 142 mmol/L (136-145) Potassium Level 4.1 mmol/L (3.5-5.1) Chloride Level 105 mmol/L (98-107) Carbon Dioxide Level 22 mmol/L (21-32) Anion Gap 15 (6-14) Blood Urea Nitrogen 36 mg/dL (7-20) Creatinine 1.1 mg/dL (0.6-1.0) Estimated GFR (Cockcroft-Gault) 52.8 Glucose Level 333 mg/dL (70-99) Calcium Level 7.7 mg/dL (8.5-10.1) White Blood Count 18.3 x10^3/uL (4.0-11.0) Red Blood Count 2.45 x10^6/uL (3.50-5.40) Hemoglobin 6.8 g/dL (12.0-15.5) Hematocrit 19.4 % (36.0-47.0) Mean Corpuscular Volume 79 fL (79-100) Mean Corpuscular Hemoglobin 28 pg (25-35) Mean Corpuscular Hemoglobin Concent 35 g/dL (31-37) Red Cell Distribution Width 26.1 % (11.5-14.5) Platelet Count 119 x10^3/uL (140-400) Neutrophils (%) (Auto) 91 % (31-73) Lymphocytes (%) (Auto) 5 % (24-48) Monocytes (%) (Auto) 4 % (0-9) Eosinophils (%) (Auto) 0 % (0-3) Basophils (%) (Auto) 0 % (0-3) Neutrophils # (Auto) 16.6 x10^3uL (1.8-7.7) Lymphocytes # (Auto) 1.0 x10^3/uL (1.0-4.8) Monocytes # (Auto) 0.7 x10^3/uL (0.0-1.1) Eosinophils # (Auto) 0.0 x10^3/uL (0.0-0.7) Basophils # (Auto) 0.0 x10^3/uL (0.0-0.2) Glucose (Fingerstick) 321 mg/dL (70-99) Stool Occult Blood Negative (NEG) Test 04/13/17 14:30 04/13/17 16:04 Reticulocyte Count (auto) 6.8 % (0.5-2.5) Iron Level 11 ug/dL (50-170) Total Iron Binding Capacity 225 ug/dL (250-450) Iron Saturation 5 % (15-34) Ferritin 668 ng/mL (8-252) Lactate Dehydrogenase 184 U/L (81-234) Vitamin B12 Level 467 pg/mL (247-911) Serum Folate 23.64 ng/ml (3.2-20.0) Glucose (Fingerstick) 170 mg/dL (70-99) Assessment/Plan Assessment/Plan HEMATOLOGY/ONCOLOGY CONSULTATION DATE OF CONSULTATION: 04/13/2017. ADMITTING PHYSICIAN: Alyssa Dunn M.D. REFERRING PHYSICIAN: Alyssa Dunn M.D. CONSULTING PHYSICIAN: Fredy Mitchell M.D. REASON FOR CONSULTATION: Acute anemia in a patient with history of hereditary spherocytosis. HISTORY OF PRESENT ILLNESS: The patient is a 51-year-old female who is a [facility] resident due to quadriplegia. She developed abdominal discomfort, and hence she was brought in to [facility] and admitted on 04/13/2017. She was noted to have elevated WBC count of 18.3. CT scan of the abdomen and pelvis revealed hepatosplenomegaly, Her hemoglobin on 04/12/2017 was 9.0 and it dropped to 6.8 on 04/13/17, and hence I was consulted because of further evaluation of worsening anemia in the patient who has history of hereditary spherocytosis. She was found to have uti ,esteban wbc 19, ct scan showed,no major abnormalities. Pt from [facility]. She has h/o cervical spinal stenosis and wheel chair bound ,had surgery 3 yrs ago.she also has DM and hereditary spherocytosis. anemia chronic. PAST MEDICAL HISTORY: Mental retardation, cervical fracture with spinal cord injury, quadriplegia, spherocytic anemia, UTI, urinary incontinence, neurogenic bladder, diabetes, history of cholecystectomy, and neck surgery. SOCIAL HISTORY: She is a [facility] resident. No smoking or alcohol abuse. FAMILY HISTORY: Unknown. REVIEW OF SYSTEMS: A 12-point review of systems was performed. Pertinent positives are mentioned in the history of present illness. Rest of the system review is negative. PHYSICAL EXAMINATION: GENERAL APPEARANCE: The patient is a 51-year-old female who is in no acute cardiorespiratory distress. VITAL SIGNS: reviewed HEENT: Atraumatic and normocephalic. Eyes: No icterus. NECK: Supple. CHEST: Bilaterally symmetrical. No crepitations or rhonchi heard. HEART: S1 and S2 normal. ABDOMEN: Soft. Mild tenderness to deep palpation, generalized. CENTRAL NERVOUS SYSTEM: The patient is alert and awake. She is able to move her extremities, but the strength is decreased suggestive of quadriparesis. LYMPHATICS: No lymphadenopathy. SKIN: No rashes. PSYCHOLOGIC: Mood and affect are appropriate. She has mental retardation. LABORATORY DATA: Her hemoglobin on 04/12/2017 was 9.0 and it dropped to 6.8 on 04/13/17 IMPRESSION AND PLAN: 1. Acute anemia. The patient has drop in hemoglobin from 9.0 to 6.8. I do not suspect that she has active hemolysis as her LDH level is normal. I will continue to monitor hemoglobin and transfuse as needed. Retic is elevated, haptoglobin pending. I will continue to monitor the hemoglobin and I would recommend transfusion as needed. I suspect the underlying urinary tract infection has led to worsening hemoglobin levels and it should improve over time. I reviewed all the old records. She does not seem to have problems with severe hemolysis and the hemoglobin gets worse whenever she has an infection. If hemolysis becomes an ongoing problem in the future then splenectomy can be considered however she would be at higher risk because of her poor functional status and her comorbidities. 2. Leukocytosis, reactive. Monitor 3. Thrombocytopenia with platelet count of 119,000. this is suggestive of reactive thrombocytopenia, probably from an underlying infection. I will continue to monitor closely. 4. History of hereditary spherocytosis. No signs of active hemolysis at this time. FREDY MITCHELL MD Apr 13, 2017 18:39
[2017-04-13 19:00] VITALS: BP 124/37
[2017-04-13 20:00] VITALS: BP 131/85
[2017-04-13] MEDS: FAMOTIDINE 20 MG TABLET. PO SCH (22:17)
[2017-04-13 23:00] VITALS: BP 117/57
[2017-04-14] VITALS (11 sets, daily range): BP systolic 94–129; BP diastolic 34–47
[2017-04-14 06:49] LABS: CALCIUM 8.4 mg/dL (8.5-10.1); CREATININE 0.8 mg/dL (0.6-1.0); GFR 76.2; POTASSIUM 3.7 mmol/L (3.5-5.1)
[2017-04-14] MEDS: IPRATRPIUM/ALBUTEROL 0.5/2.5MG 3 ML NEBU. IH SCH ×3 (07:17→19:07)
[2017-04-14 07:35] LABS: BASO % 0 % (0-3); EOS % 0 % (0-3); LYMPH # 0.6 x10^3/uL (1.0-4.8); LYMPH % 4 % (24-48); MEAN CORPUSCULAR HEMOGLOBIN 27 pg (25-35); MEAN CORPUSCULAR HGB CONC 35 g/dL (31-37); MEAN CORPUSCULAR VOLUME 78 fL (79-100); MONO % 5 % (0-9); NEUT % 90 % (31-73); PLATELET COUNT 108 x10^3/uL (140-400); RED BLOOD COUNT 2.01 x10^6/uL (3.50-5.40)
[2017-04-14 07:41] LABS: HEMATOCRIT 15.8 % (36.0-47.0); HEMOGLOBIN 5.5 g/dL (12.0-15.5)
[2017-04-14] MEDS: INSULIN ASPART 300 UNITS/3 ML INSULN.PEN SQ SCH ×6 (08:00→17:47)
[2017-04-14] MEDS: MULTIVITAMIN with MINERAL TABLET. PO SCH (09:43)
[2017-04-14] MEDS: BACLOFEN 10 MG TABLET. PO SCH ×4 (09:43→20:19)
[2017-04-14] MEDS: POLYVINYL ALCOHOL 1.4% OPHTH SOLUTION 15ML BOTTLE. OU SCH ×4 (09:43→20:17)
[2017-04-14] MEDS: FLUTICASONE 50MCG/NASAL SPRAY 16GM BOTTLE. NS SCH (09:43)
[2017-04-14] MEDS: POTASSIUM CHLORIDE 10 MEQ TABLET.ER. PO SCH (09:44)
[2017-04-14] MEDS: GABAPENTIN 100 MG CAPSULE. PO SCH ×2 (09:44→20:18)
[2017-04-14] MEDS: SUCRALFATE 1 GM TABLET. PO SCH ×3 (09:44→16:17)
[2017-04-14] MEDS: SENNOSIDES/DOCUSATE 8.6/50MG TABLET. PO SCH ×2 (09:45→20:18)
[2017-04-14] MEDS: CYCLOBENZAPRINE 10 MG TABLET. PO SCH ×2 (09:45→20:18)
[2017-04-14] MEDS: FOLIC ACID 1 MG TABLET. PO SCH (09:45)
[2017-04-14] MEDS ORDERED: ACETAMINOPHEN 325 MG TABLET. PO PRN (11:45)
[2017-04-14] MEDS: ESCITALOPRAM 5 MG TABLET. PO SCH (12:30)
--- NOTE | 2017-04-14 13:45 | PDOC ---
PROGRESS NOTES Subjective Subjective The patient is still c/o RUQ pain She is febrile Her H&H is trending down Objective Objective Vital Signs Date Time Temp Pulse Resp B/P (MAP) Pulse Ox O2 Delivery O2 Flow Rate FiO2 04/14/17 11:00 101.4 93 20 129/47 (74) 94 Nasal Cannula 2.0 101.4 Intake and Output 04/14/17 07:00 Intake Total 600 ml Balance 600 ml Intake Oral 600 ml # Voids 5 # Bowel Movements 1 Physical Exam Abdomen: Normal bowel sounds, Other (tenderness in the RUQ) Heart: Regular rate, Normal S1, Normal S2, No murmurs Extremities: No clubbing, No cyanosis, No edema General: Alert, Oriented X3, Cooperative, mild distress HEENT: Atraumatic, PERRLA, EOMI Lungs: Clear to auscultation MUSCULOSKELETAL: No joint tenderness Neck: Supple, No thyromegaly Neuro: Normal gait Psych/Mental Status: Mental status NL, Mood NL Skin: No rashes Diagnosis DIAGNOSIS Fever felt to be secandary to UTI on I V antibiotics Hereditary spherocytosis with acute hemolytic anemia Will transfuse 2 units Problems: Assessment Assessment Problems Medical Problems: (1) Abdominal pain Status: Acute (2) Leukocytosis Status: Acute (3) Urinary tract infection Status: Acute Plan Plan of Care Consult ID Comment Labs Laboratory Tests Test 04/12/17 22:50 04/13/17 00:28 04/13/17 03:12 04/13/17 07:56 White Blood Count 19.2 x10^3/uL (4.0-11.0) Red Blood Count 3.18 x10^6/uL (3.50-5.40) Hemoglobin 9.0 g/dL (12.0-15.5) Hematocrit 26.6 % (36.0-47.0) Mean Corpuscular Volume 84 fL (79-100) Mean Corpuscular Hemoglobin 28 pg (25-35) Mean Corpuscular Hemoglobin Concent 34 g/dL (31-37) Red Cell Distribution Width 27.2 % (11.5-14.5) Platelet Count 139 x10^3/uL (140-400) Neutrophils (%) (Auto) 96 % (31-73) Lymphocytes (%) (Auto) 1 % (24-48) Monocytes (%) (Auto) 3 % (0-9) Eosinophils (%) (Auto) 0 % (0-3) Basophils (%) (Auto) 0 % (0-3) Neutrophils # (Auto) 18.4 x10^3uL (1.8-7.7) Lymphocytes # (Auto) 0.2 x10^3/uL (1.0-4.8) Monocytes # (Auto) 0.5 x10^3/uL (0.0-1.1) Eosinophils # (Auto) 0.0 x10^3/uL (0.0-0.7) Basophils # (Auto) 0.0 x10^3/uL (0.0-0.2) Segmented Neutrophils % 70 % (35-66) Band Neutrophils % 27 % (0-9) Lymphocytes % 2 % (24-48) Monocytes % 1 % (0-10) Nucleated Red Blood Cells 1 Platelet Estimate Adequate (ADEQUATE) Polychromasia Mod Poikilocytosis Slight Basophilic Stippling Present Anisocytosis Mod Spherocytes Present [place] Bodies Present Schistocytes Occ Sodium Level 146 mmol/L (136-145) Potassium Level 4.2 mmol/L (3.5-5.1) Chloride Level 107 mmol/L (98-107) Carbon Dioxide Level 26 mmol/L (21-32) Anion Gap 13 (6-14) Blood Urea Nitrogen 31 mg/dL (7-20) Creatinine 1.2 mg/dL (0.6-1.0) Estimated GFR (Cockcroft-Gault) 47.7 BUN/Creatinine Ratio 26 (6-20) Glucose Level 253 mg/dL (70-99) Calcium Level 8.4 mg/dL (8.5-10.1) Total Bilirubin 4.0 mg/dL (0.2-1.0) Aspartate Amino Transf (AST/SGOT) 12 U/L (15-37) Alanine Aminotransferase (ALT/SGPT) 12 U/L (14-59) Alkaline Phosphatase 67 U/L (46-116) Troponin I Quantitative 0.020 ng/mL (0.000-0.055) QR-Wtg-T-Type Natriuretic Peptide 1608 pg/mL (0-124) Total Protein 7.1 g/dL (6.4-8.2) Albumin 4.3 g/dL (3.4-5.0) Albumin/Globulin Ratio 1.5 (1.0-1.7) Lipase 107 U/L (73-393) Urine Collection Type Unknown Urine Color [place] Urine Clarity Cloudy Urine pH 5.5 Urine Specific [place] >=1.030 Urine Protein 100 mg/dL (NEG-TRACE) Urine Glucose (UA) Negative mg/dL (NEG) Urine Ketones (Stick) 15 mg/dL (NEG) Urine Blood Negative (NEG) Urine Nitrite Positive (NEG) Urine Bilirubin Moderate (NEG) Urine Urobilinogen Dipstick 1.0 mg/dL (0.2 mg/dL) Urine Leukocyte Esterase Large (NEG) Urine RBC Occ /HPF (0-2) Urine WBC Tntc /HPF (0-4) Urine Squamous Epithelial Cells Few /LPF Urine Bacteria Many /HPF (0-FEW) Urine Hyaline Casts Moderate /HPF Urine Mucus Mod /LPF Nasal Screen MRSA (PCR) Negative (Negative) Glucose (Fingerstick) 312 mg/dL (70-99) Test 04/13/17 11:00 04/13/17 11:40 04/13/17 11:49 04/13/17 13:30 Sodium Level 142 mmol/L (136-145) Potassium Level 4.1 mmol/L (3.5-5.1) Chloride Level 105 mmol/L (98-107) Carbon Dioxide Level 22 mmol/L (21-32) Anion Gap 15 (6-14) Blood Urea Nitrogen 36 mg/dL (7-20) Creatinine 1.1 mg/dL (0.6-1.0) Estimated GFR (Cockcroft-Gault) 52.8 Glucose Level 333 mg/dL (70-99) Calcium Level 7.7 mg/dL (8.5-10.1) White Blood Count 18.3 x10^3/uL (4.0-11.0) Red Blood Count 2.45 x10^6/uL (3.50-5.40) Hemoglobin 6.8 g/dL (12.0-15.5) Hematocrit 19.4 % (36.0-47.0) Mean Corpuscular Volume 79 fL (79-100) Mean Corpuscular Hemoglobin 28 pg (25-35) Mean Corpuscular Hemoglobin Concent 35 g/dL (31-37) Red Cell Distribution Width 26.1 % (11.5-14.5) Platelet Count 119 x10^3/uL (140-400) Neutrophils (%) (Auto) 91 % (31-73) Lymphocytes (%) (Auto) 5 % (24-48) Monocytes (%) (Auto) 4 % (0-9) Eosinophils (%) (Auto) 0 % (0-3) Basophils (%) (Auto) 0 % (0-3) Neutrophils # (Auto) 16.6 x10^3uL (1.8-7.7) Lymphocytes # (Auto) 1.0 x10^3/uL (1.0-4.8) Monocytes # (Auto) 0.7 x10^3/uL (0.0-1.1) Eosinophils # (Auto) 0.0 x10^3/uL (0.0-0.7) Basophils # (Auto) 0.0 x10^3/uL (0.0-0.2) Glucose (Fingerstick) 321 mg/dL (70-99) Stool Occult Blood Negative (NEG) Test 04/13/17 14:30 04/13/17 16:04 04/13/17 22:12 04/14/17 05:35 Reticulocyte Count (auto) 6.8 % (0.5-2.5) 5.1 % (0.5-2.5) Haptoglobin 25 mg/dL (34-200) Iron Level 11 ug/dL (50-170) Total Iron Binding Capacity 225 ug/dL (250-450) Iron Saturation 5 % (15-34) Ferritin 668 ng/mL (8-252) Lactate Dehydrogenase 184 U/L (81-234) 182 U/L (81-234) Vitamin B12 Level 467 pg/mL (247-911) Serum Folate 23.64 ng/ml (3.2-20.0) Glucose (Fingerstick) 170 mg/dL (70-99) 138 mg/dL (70-99) White Blood Count 14.0 x10^3/uL (4.0-11.0) Red Blood Count 2.01 x10^6/uL (3.50-5.40) Hemoglobin 5.5 g/dL (12.0-15.5) Hematocrit 15.8 % (36.0-47.0) Mean Corpuscular Volume 78 fL (79-100) Mean Corpuscular Hemoglobin 27 pg (25-35) Mean Corpuscular Hemoglobin Concent 35 g/dL (31-37) Red Cell Distribution Width 26.0 % (11.5-14.5) Platelet Count 108 x10^3/uL (140-400) Neutrophils (%) (Auto) 90 % (31-73) Lymphocytes (%) (Auto) 4 % (24-48) Monocytes (%) (Auto) 5 % (0-9) Eosinophils (%) (Auto) 0 % (0-3) Basophils (%) (Auto) 0 % (0-3) Neutrophils # (Auto) 12.7 x10^3uL (1.8-7.7) Lymphocytes # (Auto) 0.6 x10^3/uL (1.0-4.8) Monocytes # (Auto) 0.7 x10^3/uL (0.0-1.1) Eosinophils # (Auto) 0.0 x10^3/uL (0.0-0.7) Basophils # (Auto) 0.0 x10^3/uL (0.0-0.2) Sodium Level 141 mmol/L (136-145) Potassium Level 3.7 mmol/L (3.5-5.1) Chloride Level 104 mmol/L (98-107) Carbon Dioxide Level 26 mmol/L (21-32) Anion Gap 11 (6-14) Blood Urea Nitrogen 29 mg/dL (7-20) Creatinine 0.8 mg/dL (0.6-1.0) Estimated GFR (Cockcroft-Gault) 76.2 Glucose Level 192 mg/dL (70-99) Calcium Level 8.4 mg/dL (8.5-10.1) Test 04/14/17 07:37 04/14/17 11:36 Glucose (Fingerstick) 222 mg/dL (70-99) 261 mg/dL (70-99) Laboratory Tests Test 04/13/17 14:30 04/13/17 16:04 04/13/17 22:12 04/14/17 05:35 Reticulocyte Count (auto) 6.8 % (0.5-2.5) 5.1 % (0.5-2.5) Haptoglobin 25 mg/dL (34-200) Iron Level 11 ug/dL (50-170) Total Iron Binding Capacity 225 ug/dL (250-450) Iron Saturation 5 % (15-34) Ferritin 668 ng/mL (8-252) Lactate Dehydrogenase 184 U/L (81-234) 182 U/L (81-234) Vitamin B12 Level 467 pg/mL (247-911) Serum Folate 23.64 ng/ml (3.2-20.0) Glucose (Fingerstick) 170 mg/dL (70-99) 138 mg/dL (70-99) White Blood Count 14.0 x10^3/uL (4.0-11.0) Red Blood Count 2.01 x10^6/uL (3.50-5.40) Hemoglobin 5.5 g/dL (12.0-15.5) Hematocrit 15.8 % (36.0-47.0) Mean Corpuscular Volume 78 fL (79-100) Mean Corpuscular Hemoglobin 27 pg (25-35) Mean Corpuscular Hemoglobin Concent 35 g/dL (31-37) Red Cell Distribution Width 26.0 % (11.5-14.5) Platelet Count 108 x10^3/uL (140-400) Neutrophils (%) (Auto) 90 % (31-73) Lymphocytes (%) (Auto) 4 % (24-48) Monocytes (%) (Auto) 5 % (0-9) Eosinophils (%) (Auto) 0 % (0-3) Basophils (%) (Auto) 0 % (0-3) Neutrophils # (Auto) 12.7 x10^3uL (1.8-7.7) Lymphocytes # (Auto) 0.6 x10^3/uL (1.0-4.8) Monocytes # (Auto) 0.7 x10^3/uL (0.0-1.1) Eosinophils # (Auto) 0.0 x10^3/uL (0.0-0.7) Basophils # (Auto) 0.0 x10^3/uL (0.0-0.2) Sodium Level 141 mmol/L (136-145) Potassium Level 3.7 mmol/L (3.5-5.1) Chloride Level 104 mmol/L (98-107) Carbon Dioxide Level 26 mmol/L (21-32) Anion Gap 11 (6-14) Blood Urea Nitrogen 29 mg/dL (7-20) Creatinine 0.8 mg/dL (0.6-1.0) Estimated GFR (Cockcroft-Gault) 76.2 Glucose Level 192 mg/dL (70-99) Calcium Level 8.4 mg/dL (8.5-10.1) Test 04/14/17 07:37 04/14/17 11:36 Glucose (Fingerstick) 222 mg/dL (70-99) 261 mg/dL (70-99) Microbiology 04/13/17 Blood Culture - Preliminary, Resulted NO GROWTH AFTER 1 DAY 04/13/17 Urine Culture - Preliminary, Resulted 04/13/17 Urine Culture Result 1 (CÉSAR) - Preliminary, Resulted Medications Current Medications Fentanyl Citrate (Fentanyl 2ml Vial) 25 mcg PRN Q15MIN PRN IV PAIN GREATER THAN 3/10 Last administered on 04/12/17 23:33; Start 04/12/17 at 23:15; Stop 04/13 at 03:00; Status DC Ondansetron HCl (Zofran) 4 mg 1X ONCE IV Last administered on 04/12/17 23:33; Start 04/12/17 at 23:30; Stop 04/12/17 at 23:31; Status DC Iohexol (Omnipaque 300 Mg/ml) 75 ml 1X ONCE IV Last administered on 04/13/17 00:09; Start 04/12/17 at 23:45; Stop 04/12/17 at 23:46; Status DC Info (Do NOT chart on this entry -- for MONITORING) 1 each PRN DAILY PRN MC SEE COMMENTS; Start 04/12/17 at 23:45; Stop 04/14/17 at 23:44 Ceftriaxone Sodium 1 gm/ Sodium Chloride 50 ml @ 100 mls/hr Q24H IV Last administered on 04/13/17 22:18; Start 04/13/17 at 23:00 Ceftriaxone Sodium 50 ml @ 100 mls/hr 1X ONCE IV Last administered on 01:38; Start 04/13/17 at 01:30; Stop 04/13/17 at 01:59; Status DC Ondansetron HCl (Zofran) 4 mg PRN Q8HRS PRN IV NAUSEA/VOMITING; Start 04/13/17 at 01:30; Stop 04/14/17 at 01:29; Status DC Fentanyl Citrate (Fentanyl 2ml Vial) 50 mcg PRN Q2HR PRN IV SEVERE PAIN Last administered on 04/13/17 03:23; Start 04/13/17 at 01:30; Stop 04/14/17 at 01:29; Status DC Acetaminophen (Tylenol) 650 mg PRN Q4HRS PRN PO FEVER; Start 04/13/17 at 01:30; Stop 04/14/17 at 01:29; Status DC Insulin Aspart (NovoLOG) 0-5 UNITS TIDWMEALS SQ Last administered on 04/13/17 12:55; Start 04/13/17 at 08:00; Stop 04/13/17 at 17:00; Status DC Dextrose (Dextrose 50%-Water Syringe) 12.5 gm PRN Q15MIN PRN IV SEE COMMENTS; Start 04/13/17 at 02:00; Stop 04/13/17 at 16:22; Status DC Acetaminophen (Tylenol) 650 mg PRN Q8HRS PRN PO PAIN; Start 04/13/17 at 09:45; Stop 04/14/17 at 11:43; Status DC Acetaminophen/ Codeine Phosphate (Tylenol #3) 1 tab PRN Q4HRS PRN PO PAIN; Start 04/13/17 at 09:45 Baclofen (Lioresal) 10 mg QID PO Last administered on 04/14/17 09:43; Start 04/13/17 at 13:00 Cyanocobalamin (Vitamin B-12) 1,000 mcg QMONTH IM ; Start 04/27/17 at 09:00 Famotidine (Pepcid) 20 mg HS PO Last administered on 04/13/17 22:17; Start 04/13 at 21:00 Furosemide (Lasix) 20 mg DAILY PO Last administered on 04/13/17 12:35; Start at 10:00; Stop 04/13/17 at 14:46; Status DC Gabapentin (Neurontin) 100 mg BID PO Last administered on 04/14/17 09:44; Start 04/13/17 at 10:00 Insulin Aspart (NovoLOG) 7 units TIDBFRMEAL SQ Last administered on 04/14/17 11 :30; Start 04/13/17 at 11:30 Albuterol/ Ipratropium (Duoneb) 3 ml [id number] Last administered on 04/14/17 10 :46; Start 04/13/17 at 10:00 Al Hydroxide/Mg Hydroxide (Mylanta Plus Xs) 30 ml PRN DAILY PRN PO CONSTIPATION ; Start 04/13/17 at 09:45 Magnesium Hydroxide (Milk Of Magnesia) 2,400 mg PRN DAILY PRN PO CONSTIPATION; Start 04/13/17 at 09:45 Metformin HCl (Glucophage) 850 mg BIDWMEALS PO ; Start 04/15/17 at 08:00 Senna/Docusate Sodium (Senna Plus) 1 tab BID PO Last administered on 04/14/17 09:45; Start 04/13/17 at 10:00 Sucralfate (Carafate) 1 gm TIDAC PO Last administered on 04/14/17 12:29; Start 04/13/17 at 11:30 Cyclobenzaprine HCl (Flexeril) 5 mg BID PO Last administered on 04/14/17 09:45 ; Start 04/13/17 at 10:15 Artificial Tears (Artificial Tears) 1 drop QID OU Last administered on 09:43; Start 04/13/17 at 10:15 Escitalopram Oxalate (Lexapro) 20 mg DAILY PO Last administered on 04/13/17 12: 39; Start 04/13/17 at 11:00; Stop 04/14/17 at 09:55; Status DC Fluticasone Propionate (Flonase) 2 spray DAILY NS ; Start 04/13/17 at 10:00; Stop 04/13/17 at 10:30; Status DC Folic Acid (Folic Acid) 1 mg DAILY PO Last administered on 04/14/17 09:45; Start 04/13/17 at 10:00 Non-Formulary Medication 1 mg PRN PRN IJ [id number]; Start 04/13/17 at 09:45 Multivitamins (Thera M Plus) 1 tab DAILY PO Last administered on 04/14/17 09:43 ; Start 04/13/17 at 10:00 Potassium Chloride (Klor-Con) 10 meq [id number] PO Last administered on 09:44; Start 04/13/17 at 10:00 Insulin Aspart (NovoLOG) 0-7 UNITS TIDWMEALS SQ Last administered on 04/14/17 12:00; Start 04/13/17 at 12:00 Dextrose (Dextrose 50%-Water Syringe) 12.5 gm PRN Q15MIN PRN IV SEE COMMENTS; Start 04/13/17 at 10:00 Enoxaparin Sodium (Lovenox 40mg Syringe) 40 mg Q24H SQ ; Start 04/13/17 at 10:00 ; Stop 04/13/17 at 14:46; Status DC Fluticasone Propionate (Flonase) 2 spray DAILY NS Last administered on 09:43; Start 04/13/17 at 11:00 Escitalopram Oxalate (Lexapro) 20 mg DAILY PO Last administered on 04/14/17 12: 30; Start 04/14/17 at 10:00 Acetaminophen (Tylenol) 650 mg PRN Q4HRS PRN PO pain, fever Last administered on 04/14/17 12:29; Start 04/14/17 at 11:45 Active Scripts Active Reported Tylenol With Codeine #3 Tablet (Acetaminophen/Codeine Phosphate) 1 Each Tablet 1 Tab PO PRN Q4HRS PRN Artificial Tears Eye Drops (Dextran 70/Hypromellose) 15 Ml Drops 1 Drop EACHEYE QID Lexapro (Escitalopram Oxalate) 20 Mg Tablet 1 Tab PO DAILY Famotidine 20 Mg Tablet 20 Mg PO HS Metformin Hcl 850 Mg Tablet 850 Mg PO BIDWMEALS Linzess (Linaclotide) 72 Mcg Capsule 145 Mcg PO Potassium Chloride 10 Meq Capsule.er 10 Meq PO DAILY Flonase Allergy Relief (Fluticasone Propionate) 9.9 Ml [place].susp 2 Sprays NS DAILY Glucagen (Glucagon,Human Recombinant) 1 Mg Vial 1 Mg IJ PRN PRN Milk Of Magnesia (Magnesium Hydroxide) 400 Mg/5 Ml Oral.susp 30 Ml PO DAILY PRN Mi Acid Suspension (Mag Hydrox/Al Hydrox/Simeth) 355 Ml Oral.susp 30 Ml PO DAILY PRN Loperamide (Loperamide Hcl) 2 Mg Capsule 2 Mg PO PRN PRN Acetaminophen 325 Mg Tablet 2 Tab PO Q8HRS PRN Sucralfate 1 Gm Tablet 1 Tab PO TID Senna Plus Tablet (Sennosides/Docusate Sodium) 1 Each Tablet 1 Each PO BID Cyanocobalamin Injection (Cyanocobalamin (Vitamin B-12)) 1,000 Mcg/1 Ml Vial 1 Ml IM QMONTH Baclofen 10 Mg Tablet 10 Mg PO QID Novolog Flexpen (Insulin Aspart) 100 Unit/1 Ml Insuln.pen 7 Unit SQ TIDBFRMEAL Duoneb 0.5 Mg-3 Mg/3 Ml Soln (Ipratropium/Albuterol Sulfate) 3 Ml Ampul.neb 3 Ml IH [id number] Multi Vitamin Daily (Multivitamin) 1 Each Tablet 1 Each PO DAILY Gabapentin 100 Mg Capsule 100 Mg PO BID Lasix (Furosemide) 20 Mg Tablet 20 Mg PO DAILY Folic Acid 20 Mg Capsule 1 Mg PO DAILY Cyclobenzaprine Hcl 5 Mg Tablet 5 Mg PO BID Vitals/I & O Vital Sign - Last 24 Hours 04/13/17 04/13/17 04/13/17 04/13/17 14:43 19:00 20:00 20:23 Temp 98.6 99.5 98.6 99.5 Pulse 81 83 Resp 15 20 B/P (MAP) 115/43 (67) 124/37 (66) Pulse Ox 96 99 96 O2 Delivery Room Air Nasal Cannula Nasal Cannula O2 Flow Rate 2.0 2.0 04/13/17 04/14/17 04/14/17 04/14/17 23:00 03:40 07:00 07:18 Temp 99.3 99.7 100.0 99.3 99.7 100.0 Pulse 89 79 95 Resp 20 20 20 B/P (MAP) 117/57 (77) 124/37 (66) 129/46 (73) Pulse Ox 96 98 90 92 O2 Delivery Nasal Cannula Nasal Cannula Nasal Cannula O2 Flow Rate 2.0 2.0 04/14/17 04/14/17 04/14/17 08:00 10:46 11:00 Temp 101.4 101.4 Pulse 93 Resp 20 B/P (MAP) 129/47 (74) Pulse Ox 94 O2 Delivery Nasal Cannula Nasal Cannula Nasal Cannula O2 Flow Rate 2.0 2.0 2.0 Intake and Output 04/13/17 04/13/17 04/14/17 15:00 23:00 07:00 Intake Total 400 ml 200 ml Balance 400 ml 200 ml USMAN BRAUN MD Apr 14, 2017 13:45
[2017-04-14 13:52] LABS: SPHEROCYTES PRESENT
--- NOTE | 2017-04-14 16:25 | PDOC ---
PROGRESS NOTES Subjective Subjective f/fu of anemia Objective Objective Vital Signs Date Time Temp Pulse Resp B/P (MAP) Pulse Ox O2 Delivery O2 Flow Rate FiO2 04/14/17 15:00 100.6 90 20 113/44 (67) 95 Nasal Cannula 2.0 100.6 Intake and Output 04/14/17 07:00 Intake Total 600 ml Balance 600 ml Intake Oral 600 ml # Voids 5 # Bowel Movements 1 Physical Exam Heart: Normal S1, Normal S2 Lungs: Clear to auscultation Assessment Assessment Problems Medical Problems: (1) Abdominal pain Status: Acute (2) Leukocytosis Status: Acute (3) Urinary tract infection Status: Acute IMPRESSION AND PLAN: 1. Acute anemia. The patient has drop in hemoglobin from 9.0 to 6.8. She has mild hemolysis suggested by elevated retic and decreased haptoglobin and her LDH level is normal. I will continue to monitor hemoglobin and transfuse as needed. I will continue to monitor the hemoglobin and I would recommend transfusion as needed. I suspect the underlying urinary tract infection has led to worsening hemoglobin levels and it should improve over time. I reviewed all the old records. She does not seem to have problems with severe hemolysis and the hemoglobin gets worse whenever she has an infection. If hemolysis becomes an ongoing problem in the future then splenectomy can be considered however she would be at higher risk because of her poor functional status and her comorbidities. Hb worse today at 5.5 and I agree to transfuse 2 units PRBC I d/w DR Castañeda and RN. 2. Leukocytosis, reactive. Monitor 3. Thrombocytopenia with platelet count of 108,000. this is suggestive of reactive thrombocytopenia, probably from an underlying infection. I will continue to monitor PRN. 4. History of hereditary spherocytosis. Comment Review of Relevant I have reviewed the following items shira (where applicable) has been applied. Labs Laboratory Tests Test 04/12/17 22:50 04/13/17 00:28 04/13/17 03:12 04/13/17 07:56 White Blood Count 19.2 x10^3/uL (4.0-11.0) Red Blood Count 3.18 x10^6/uL (3.50-5.40) Hemoglobin 9.0 g/dL (12.0-15.5) Hematocrit 26.6 % (36.0-47.0) Mean Corpuscular Volume 84 fL (79-100) Mean Corpuscular Hemoglobin 28 pg (25-35) Mean Corpuscular Hemoglobin Concent 34 g/dL (31-37) Red Cell Distribution Width 27.2 % (11.5-14.5) Platelet Count 139 x10^3/uL (140-400) Neutrophils (%) (Auto) 96 % (31-73) Lymphocytes (%) (Auto) 1 % (24-48) Monocytes (%) (Auto) 3 % (0-9) Eosinophils (%) (Auto) 0 % (0-3) Basophils (%) (Auto) 0 % (0-3) Neutrophils # (Auto) 18.4 x10^3uL (1.8-7.7) Lymphocytes # (Auto) 0.2 x10^3/uL (1.0-4.8) Monocytes # (Auto) 0.5 x10^3/uL (0.0-1.1) Eosinophils # (Auto) 0.0 x10^3/uL (0.0-0.7) Basophils # (Auto) 0.0 x10^3/uL (0.0-0.2) Segmented Neutrophils % 70 % (35-66) Band Neutrophils % 27 % (0-9) Lymphocytes % 2 % (24-48) Monocytes % 1 % (0-10) Nucleated Red Blood Cells 1 Platelet Estimate Adequate (ADEQUATE) Polychromasia Mod Poikilocytosis Slight Basophilic Stippling Present Anisocytosis Mod Spherocytes Present [place] Bodies Present Schistocytes Occ Sodium Level 146 mmol/L (136-145) Potassium Level 4.2 mmol/L (3.5-5.1) Chloride Level 107 mmol/L (98-107) Carbon Dioxide Level 26 mmol/L (21-32) Anion Gap 13 (6-14) Blood Urea Nitrogen 31 mg/dL (7-20) Creatinine 1.2 mg/dL (0.6-1.0) Estimated GFR (Cockcroft-Gault) 47.7 BUN/Creatinine Ratio 26 (6-20) Glucose Level 253 mg/dL (70-99) Calcium Level 8.4 mg/dL (8.5-10.1) Total Bilirubin 4.0 mg/dL (0.2-1.0) Aspartate Amino Transf (AST/SGOT) 12 U/L (15-37) Alanine Aminotransferase (ALT/SGPT) 12 U/L (14-59) Alkaline Phosphatase 67 U/L (46-116) Troponin I Quantitative 0.020 ng/mL (0.000-0.055) YQ-Bgj-T-Type Natriuretic Peptide 1608 pg/mL (0-124) Total Protein 7.1 g/dL (6.4-8.2) Albumin 4.3 g/dL (3.4-5.0) Albumin/Globulin Ratio 1.5 (1.0-1.7) Lipase 107 U/L (73-393) Urine Collection Type Unknown Urine Color [place] Urine Clarity Cloudy Urine pH 5.5 Urine Specific [place] >=1.030 Urine Protein 100 mg/dL (NEG-TRACE) Urine Glucose (UA) Negative mg/dL (NEG) Urine Ketones (Stick) 15 mg/dL (NEG) Urine Blood Negative (NEG) Urine Nitrite Positive (NEG) Urine Bilirubin Moderate (NEG) Urine Urobilinogen Dipstick 1.0 mg/dL (0.2 mg/dL) Urine Leukocyte Esterase Large (NEG) Urine RBC Occ /HPF (0-2) Urine WBC Tntc /HPF (0-4) Urine Squamous Epithelial Cells Few /LPF Urine Bacteria Many /HPF (0-FEW) Urine Hyaline Casts Moderate /HPF Urine Mucus Mod /LPF Nasal Screen MRSA (PCR) Negative (Negative) Glucose (Fingerstick) 312 mg/dL (70-99) Test 04/13/17 11:00 04/13/17 11:40 04/13/17 11:49 04/13/17 13:30 Sodium Level 142 mmol/L (136-145) Potassium Level 4.1 mmol/L (3.5-5.1) Chloride Level 105 mmol/L (98-107) Carbon Dioxide Level 22 mmol/L (21-32) Anion Gap 15 (6-14) Blood Urea Nitrogen 36 mg/dL (7-20) Creatinine 1.1 mg/dL (0.6-1.0) Estimated GFR (Cockcroft-Gault) 52.8 Glucose Level 333 mg/dL (70-99) Calcium Level 7.7 mg/dL (8.5-10.1) White Blood Count 18.3 x10^3/uL (4.0-11.0) Red Blood Count 2.45 x10^6/uL (3.50-5.40) Hemoglobin 6.8 g/dL (12.0-15.5) Hematocrit 19.4 % (36.0-47.0) Mean Corpuscular Volume 79 fL (79-100) Mean Corpuscular Hemoglobin 28 pg (25-35) Mean Corpuscular Hemoglobin Concent 35 g/dL (31-37) Red Cell Distribution Width 26.1 % (11.5-14.5) Platelet Count 119 x10^3/uL (140-400) Neutrophils (%) (Auto) 91 % (31-73) Lymphocytes (%) (Auto) 5 % (24-48) Monocytes (%) (Auto) 4 % (0-9) Eosinophils (%) (Auto) 0 % (0-3) Basophils (%) (Auto) 0 % (0-3) Neutrophils # (Auto) 16.6 x10^3uL (1.8-7.7) Lymphocytes # (Auto) 1.0 x10^3/uL (1.0-4.8) Monocytes # (Auto) 0.7 x10^3/uL (0.0-1.1) Eosinophils # (Auto) 0.0 x10^3/uL (0.0-0.7) Basophils # (Auto) 0.0 x10^3/uL (0.0-0.2) Glucose (Fingerstick) 321 mg/dL (70-99) Stool Occult Blood Negative (NEG) Test 04/13/17 14:30 04/13/17 16:04 04/13/17 22:12 04/14/17 05:35 Reticulocyte Count (auto) 6.8 % (0.5-2.5) 5.1 % (0.5-2.5) Haptoglobin 25 mg/dL (34-200) Iron Level 11 ug/dL (50-170) Total Iron Binding Capacity 225 ug/dL (250-450) Iron Saturation 5 % (15-34) Ferritin 668 ng/mL (8-252) Lactate Dehydrogenase 184 U/L (81-234) 182 U/L (81-234) Vitamin B12 Level 467 pg/mL (247-911) Serum Folate 23.64 ng/ml (3.2-20.0) Glucose (Fingerstick) 170 mg/dL (70-99) 138 mg/dL (70-99) White Blood Count 14.0 x10^3/uL (4.0-11.0) Red Blood Count 2.01 x10^6/uL (3.50-5.40) Hemoglobin 5.5 g/dL (12.0-15.5) Hematocrit 15.8 % (36.0-47.0) Mean Corpuscular Volume 78 fL (79-100) Mean Corpuscular Hemoglobin 27 pg (25-35) Mean Corpuscular Hemoglobin Concent 35 g/dL (31-37) Red Cell Distribution Width 26.0 % (11.5-14.5) Platelet Count 108 x10^3/uL (140-400) Neutrophils (%) (Auto) 90 % (31-73) Lymphocytes (%) (Auto) 4 % (24-48) Monocytes (%) (Auto) 5 % (0-9) Eosinophils (%) (Auto) 0 % (0-3) Basophils (%) (Auto) 0 % (0-3) Neutrophils # (Auto) 12.7 x10^3uL (1.8-7.7) Lymphocytes # (Auto) 0.6 x10^3/uL (1.0-4.8) Monocytes # (Auto) 0.7 x10^3/uL (0.0-1.1) Eosinophils # (Auto) 0.0 x10^3/uL (0.0-0.7) Basophils # (Auto) 0.0 x10^3/uL (0.0-0.2) Sodium Level 141 mmol/L (136-145) Potassium Level 3.7 mmol/L (3.5-5.1) Chloride Level 104 mmol/L (98-107) Carbon Dioxide Level 26 mmol/L (21-32) Anion Gap 11 (6-14) Blood Urea Nitrogen 29 mg/dL (7-20) Creatinine 0.8 mg/dL (0.6-1.0) Estimated GFR (Cockcroft-Gault) 76.2 Glucose Level 192 mg/dL (70-99) Calcium Level 8.4 mg/dL (8.5-10.1) Test 04/14/17 07:37 04/14/17 11:36 Glucose (Fingerstick) 222 mg/dL (70-99) 261 mg/dL (70-99) Laboratory Tests Test 04/13/17 22:12 04/14/17 05:35 04/14/17 07:37 04/14/17 11:36 Glucose (Fingerstick) 138 mg/dL (70-99) 222 mg/dL (70-99) 261 mg/dL (70-99) White Blood Count 14.0 x10^3/uL (4.0-11.0) Red Blood Count 2.01 x10^6/uL (3.50-5.40) Hemoglobin 5.5 g/dL (12.0-15.5) Hematocrit 15.8 % (36.0-47.0) Mean Corpuscular Volume 78 fL (79-100) Mean Corpuscular Hemoglobin 27 pg (25-35) Mean Corpuscular Hemoglobin Concent 35 g/dL (31-37) Red Cell Distribution Width 26.0 % (11.5-14.5) Platelet Count 108 x10^3/uL (140-400) Neutrophils (%) (Auto) 90 % (31-73) Lymphocytes (%) (Auto) 4 % (24-48) Monocytes (%) (Auto) 5 % (0-9) Eosinophils (%) (Auto) 0 % (0-3) Basophils (%) (Auto) 0 % (0-3) Neutrophils # (Auto) 12.7 x10^3uL (1.8-7.7) Lymphocytes # (Auto) 0.6 x10^3/uL (1.0-4.8) Monocytes # (Auto) 0.7 x10^3/uL (0.0-1.1) Eosinophils # (Auto) 0.0 x10^3/uL (0.0-0.7) Basophils # (Auto) 0.0 x10^3/uL (0.0-0.2) Reticulocyte Count (auto) 5.1 % (0.5-2.5) Sodium Level 141 mmol/L (136-145) Potassium Level 3.7 mmol/L (3.5-5.1) Chloride Level 104 mmol/L (98-107) Carbon Dioxide Level 26 mmol/L (21-32) Anion Gap 11 (6-14) Blood Urea Nitrogen 29 mg/dL (7-20) Creatinine 0.8 mg/dL (0.6-1.0) Estimated GFR (Cockcroft-Gault) 76.2 Glucose Level 192 mg/dL (70-99) Calcium Level 8.4 mg/dL (8.5-10.1) Lactate Dehydrogenase 182 U/L (81-234) Microbiology 04/13/17 Blood Culture - Preliminary, Resulted NO GROWTH AFTER 1 DAY 04/13/17 Urine Culture - Preliminary, Resulted 04/13/17 Urine Culture Result 1 (CÉSAR) - Preliminary, Resulted Medications Current Medications Fentanyl Citrate (Fentanyl 2ml Vial) 25 mcg PRN Q15MIN PRN IV PAIN GREATER THAN 3/10 Last administered on 04/12/17 23:33; Start 04/12/17 at 23:15; Stop 04/13 at 03:00; Status DC Ondansetron HCl (Zofran) 4 mg 1X ONCE IV Last administered on 04/12/17 23:33; Start 04/12/17 at 23:30; Stop 04/12/17 at 23:31; Status DC Iohexol (Omnipaque 300 Mg/ml) 75 ml 1X ONCE IV Last administered on 04/13/17 00:09; Start 04/12/17 at 23:45; Stop 04/12/17 at 23:46; Status DC Info (Do NOT chart on this entry -- for MONITORING) 1 each PRN DAILY PRN MC SEE COMMENTS; Start 04/12/17 at 23:45; Stop 04/14/17 at 23:44 Ceftriaxone Sodium 1 gm/ Sodium Chloride 50 ml @ 100 mls/hr Q24H IV Last administered on 04/13/17 22:18; Start 04/13/17 at 23:00 Ceftriaxone Sodium 50 ml @ 100 mls/hr 1X ONCE IV Last administered on 01:38; Start 04/13/17 at 01:30; Stop 04/13/17 at 01:59; Status DC Ondansetron HCl (Zofran) 4 mg PRN Q8HRS PRN IV NAUSEA/VOMITING; Start 04/13/17 at 01:30; Stop 04/14/17 at 01:29; Status DC Fentanyl Citrate (Fentanyl 2ml Vial) 50 mcg PRN Q2HR PRN IV SEVERE PAIN Last administered on 04/13/17 03:23; Start 04/13/17 at 01:30; Stop 04/14/17 at 01:29; Status DC Acetaminophen (Tylenol) 650 mg PRN Q4HRS PRN PO FEVER; Start 04/13/17 at 01:30; Stop 04/14/17 at 01:29; Status DC Insulin Aspart (NovoLOG) 0-5 UNITS TIDWMEALS SQ Last administered on 04/13/17 12:55; Start 04/13/17 at 08:00; Stop 04/13/17 at 17:00; Status DC Dextrose (Dextrose 50%-Water Syringe) 12.5 gm PRN Q15MIN PRN IV SEE COMMENTS; Start 04/13/17 at 02:00; Stop 04/13/17 at 16:22; Status DC Acetaminophen (Tylenol) 650 mg PRN Q8HRS PRN PO PAIN; Start 04/13/17 at 09:45; Stop 04/14/17 at 11:43; Status DC Acetaminophen/ Codeine Phosphate (Tylenol #3) 1 tab PRN Q4HRS PRN PO PAIN; Start 04/13/17 at 09:45 Baclofen (Lioresal) 10 mg QID PO Last administered on 04/14/17 16:17; Start 04/13/17 at 13:00 Cyanocobalamin (Vitamin B-12) 1,000 mcg QMONTH IM ; Start 04/27/17 at 09:00 Famotidine (Pepcid) 20 mg HS PO Last administered on 04/13/17 22:17; Start 04/13 at 21:00 Furosemide (Lasix) 20 mg DAILY PO Last administered on 04/13/17 12:35; Start at 10:00; Stop 04/13/17 at 14:46; Status DC Gabapentin (Neurontin) 100 mg BID PO Last administered on 04/14/17 09:44; Start 04/13/17 at 10:00 Insulin Aspart (NovoLOG) 7 units TIDBFRMEAL SQ Last administered on 04/14/17 11 :30; Start 04/13/17 at 11:30 Albuterol/ Ipratropium (Duoneb) 3 ml [id number] IH Last administered on 04/14/17 10 :46; Start 04/13/17 at 10:00 Al Hydroxide/Mg Hydroxide (Mylanta Plus Xs) 30 ml PRN DAILY PRN PO CONSTIPATION ; Start 04/13/17 at 09:45 Magnesium Hydroxide (Milk Of Magnesia) 2,400 mg PRN DAILY PRN PO CONSTIPATION; Start 04/13/17 at 09:45 Metformin HCl (Glucophage) 850 mg BIDWMEALS PO ; Start 04/15/17 at 08:00 Senna/Docusate Sodium (Senna Plus) 1 tab BID PO Last administered on 04/14/17 09:45; Start 04/13/17 at 10:00 Sucralfate (Carafate) 1 gm TIDAC PO Last administered on 04/14/17 16:17; Start 04/13/17 at 11:30 Cyclobenzaprine HCl (Flexeril) 5 mg BID PO Last administered on 04/14/17 09:45 ; Start 04/13/17 at 10:15 Artificial Tears (Artificial Tears) 1 drop QID OU Last administered on 16:17; Start 04/13/17 at 10:15 Escitalopram Oxalate (Lexapro) 20 mg DAILY PO Last administered on 04/13/17 12: 39; Start 04/13/17 at 11:00; Stop 04/14/17 at 09:55; Status DC Fluticasone Propionate (Flonase) 2 spray DAILY NS ; Start 04/13/17 at 10:00; Stop 04/13/17 at 10:30; Status DC Folic Acid (Folic Acid) 1 mg DAILY PO Last administered on 04/14/17 09:45; Start 04/13/17 at 10:00 Non-Formulary Medication 1 mg PRN PRN IJ HYPOGLYCEMIA; Start 04/13/17 at 09:45 Multivitamins (Thera M Plus) 1 tab DAILY PO Last administered on 04/14/17 09:43 ; Start 04/13/17 at 10:00 Potassium Chloride (Klor-Con) 10 meq DAILYWBKFT PO Last administered on 09:44; Start 04/13/17 at 10:00 Insulin Aspart (NovoLOG) 0-7 UNITS TIDWMEALS SQ Last administered on 04/14/17 12:00; Start 04/13/17 at 12:00 Dextrose (Dextrose 50%-Water Syringe) 12.5 gm PRN Q15MIN PRN IV SEE COMMENTS; Start 04/13/17 at 10:00 Enoxaparin Sodium (Lovenox 40mg Syringe) 40 mg Q24H SQ ; Start 04/13/17 at 10:00 ; Stop 04/13/17 at 14:46; Status DC Fluticasone Propionate (Flonase) 2 spray DAILY NS Last administered on 09:43; Start 04/13/17 at 11:00 Escitalopram Oxalate (Lexapro) 20 mg DAILY PO Last administered on 04/14/17 12: 30; Start 04/14/17 at 10:00 Acetaminophen (Tylenol) 650 mg PRN Q4HRS PRN PO pain, fever Last administered on 04/14/17 12:29; Start 04/14/17 at 11:45 Active Scripts Active Reported Tylenol With Codeine #3 Tablet (Acetaminophen/Codeine Phosphate) 1 Each Tablet 1 Tab PO PRN Q4HRS PRN Artificial Tears Eye Drops (Dextran 70/Hypromellose) 15 Ml Drops 1 Drop EACHEYE QID Lexapro (Escitalopram Oxalate) 20 Mg Tablet 1 Tab PO DAILY Famotidine 20 Mg Tablet 20 Mg PO HS Metformin Hcl 850 Mg Tablet 850 Mg PO BIDWMEALS Linzess (Linaclotide) 72 Mcg Capsule 145 Mcg PO Potassium Chloride 10 Meq Capsule.er 10 Meq PO DAILY Flonase Allergy Relief (Fluticasone Propionate) 9.9 Ml [place].susp 2 Sprays NS DAILY Glucagen (Glucagon,Human Recombinant) 1 Mg Vial 1 Mg IJ PRN PRN Milk Of Magnesia (Magnesium Hydroxide) 400 Mg/5 Ml Oral.susp 30 Ml PO DAILY PRN Mi Acid Suspension (Mag Hydrox/Al Hydrox/Simeth) 355 Ml Oral.susp 30 Ml PO DAILY PRN Loperamide (Loperamide Hcl) 2 Mg Capsule 2 Mg PO PRN PRN Acetaminophen 325 Mg Tablet 2 Tab PO Q8HRS PRN Sucralfate 1 Gm Tablet 1 Tab PO TID Senna Plus Tablet (Sennosides/Docusate Sodium) 1 Each Tablet 1 Each PO BID Cyanocobalamin Injection (Cyanocobalamin (Vitamin B-12)) 1,000 Mcg/1 Ml Vial 1 Ml IM QMONTH Baclofen 10 Mg Tablet 10 Mg PO QID Novolog Flexpen (Insulin Aspart) 100 Unit/1 Ml Insuln.pen 7 Unit SQ TIDBFRMEAL Duoneb 0.5 Mg-3 Mg/3 Ml Soln (Ipratropium/Albuterol Sulfate) 3 Ml Ampul.neb 3 Ml IH [id number] Multi Vitamin Daily (Multivitamin) 1 Each Tablet 1 Each PO DAILY Gabapentin 100 Mg Capsule 100 Mg PO BID Lasix (Furosemide) 20 Mg Tablet 20 Mg PO DAILY Folic Acid 20 Mg Capsule 1 Mg PO DAILY Cyclobenzaprine Hcl 5 Mg Tablet 5 Mg PO BID Vitals/I & O Vital Sign - Last 24 Hours 04/13/17 04/13/17 04/13/17 04/13/17 19:00 20:00 20:23 23:00 Temp 99.5 99.3 99.5 99.3 Pulse 83 89 Resp 20 20 B/P (MAP) 124/37 (66) 117/57 (77) Pulse Ox 99 96 96 O2 Delivery Nasal Cannula Nasal Cannula O2 Flow Rate 2.0 2.0 04/14/17 04/14/17 04/14/17 04/14/17 03:40 07:00 07:18 08:00 Temp 99.7 100.0 99.7 100.0 Pulse 79 95 Resp 20 20 B/P (MAP) 124/37 (66) 129/46 (73) Pulse Ox 98 90 92 O2 Delivery Nasal Cannula Nasal Cannula Nasal Cannula Nasal Cannula O2 Flow Rate 2.0 2.0 2.0 04/14/17 04/14/17 04/14/17 10:46 11:00 15:00 Temp 101.4 100.6 101.4 100.6 Pulse 93 90 Resp 20 20 B/P (MAP) 129/47 (74) 113/44 (67) Pulse Ox 94 95 O2 Delivery Nasal Cannula Nasal Cannula Nasal Cannula O2 Flow Rate 2.0 2.0 2.0 Intake and Output 04/13/17 04/13/17 04/14/17 15:00 23:00 07:00 Intake Total 400 ml 200 ml Balance 400 ml 200 ml GURVINDER MITCHELL MD Apr 14, 2017 16:25
[2017-04-14] MEDS: ACETAMINOPHEN/CODEINE 300/30MG TABLET. PO PRN (19:33)
[2017-04-14] MEDS: FAMOTIDINE 20 MG TABLET. PO SCH (20:18)
[2017-04-15] VITALS (14 sets, daily range): BP systolic 113–131; BP diastolic 36–54
[2017-04-15 06:32] LABS: RED BLOOD COUNT 2.33 x10^6/uL (3.50-5.40); RED CELL DISTRIBUTION WIDTH 22.2 % (11.5-14.5); WHITE BLOOD COUNT 9.5 x10^3/uL (4.0-11.0)
[2017-04-15 06:51] LABS: CALCIUM 8.2 mg/dL (8.5-10.1); CREATININE 0.9 mg/dL (0.6-1.0); GFR 66.5; POTASSIUM 3.9 mmol/L (3.5-5.1)
[2017-04-15 06:58] LABS: HEMATOCRIT 18.1 % (36.0-47.0); HEMOGLOBIN 6.6 g/dL (12.0-15.5)
[2017-04-15] MEDS: IPRATRPIUM/ALBUTEROL 0.5/2.5MG 3 ML NEBU. IH SCH ×3 (07:41→19:25)
[2017-04-15] MEDS: SENNOSIDES/DOCUSATE 8.6/50MG TABLET. PO SCH ×2 (08:07→21:54)
[2017-04-15] MEDS: FOLIC ACID 1 MG TABLET. PO SCH (08:07)
[2017-04-15] MEDS: metFORMIN 850 MG TABLET PO SCH ×2 (08:07→17:40)
[2017-04-15] MEDS: GABAPENTIN 100 MG CAPSULE. PO SCH ×2 (08:07→21:54)
[2017-04-15] MEDS: BACLOFEN 10 MG TABLET. PO SCH ×4 (08:07→21:54)
[2017-04-15] MEDS: SUCRALFATE 1 GM TABLET. PO SCH ×3 (08:07→17:40)
[2017-04-15] MEDS: MULTIVITAMIN with MINERAL TABLET. PO SCH (08:07)
[2017-04-15] MEDS: CYCLOBENZAPRINE 10 MG TABLET. PO SCH ×2 (08:08→21:55)
[2017-04-15] MEDS: POTASSIUM CHLORIDE 10 MEQ TABLET.ER. PO SCH (08:08)
[2017-04-15] MEDS: ESCITALOPRAM 5 MG TABLET. PO SCH (08:08)
[2017-04-15] MEDS: POLYVINYL ALCOHOL 1.4% OPHTH SOLUTION 15ML BOTTLE. OU SCH ×4 (08:16→21:00)
[2017-04-15] MEDS: FLUTICASONE 50MCG/NASAL SPRAY 16GM BOTTLE. NS SCH (08:17)
--- NOTE | 2017-04-15 08:17 | PDOC2 ---
IM Consult Referring physician Dr Dunn for fever, leukocytosis Date of Admission DATE: 04/15/17 TIME: 08:11 Chief Complaint Chief Complaint 51 yr female with multiple med problems, admitted with fever, leukocytosis, n/v , sever anemia, abd pain. denies cough, sob, diarrhea, urinary sy, headache Problems: Past Medical History Cardiovascular: HTN CENTRAL NERVOUS SYSTEM: Other (cervical spinal stenosis) GI: Constipation Heme/Onc: Iron deficiency Anemia, Other (hereditory spherocytosis) Psych: Other Musculoskeletal: Other (paraplegia) Renal/: UTI, Urinary Incontinence, Other Endocrine: Diabetes Past Surgical History Past Surgical History: Cholecystectomy, Other (cervical spine surgery) Past Family History Family History: Obesity Past Social History PSH neg for smoking, etoh, drugs Review of Symptoms Review of Symptoms General ROS: positive for - Psychological ROS: negative Ophthalmic ROS: negative ENT ROS: negative Allergy and Immunology ROS: negative Hematology and Lymphatic: negative Endocrine ROS: negative Respiratory ROS: no cold, cough, dyspnea. Cardiovascular ROS: no chest pain or dyspnea on exertion Gastrointestinal ROS: abdominal pain, change in bowel habits, or black or bloody stools Genito-Urinary ROS: no dysuria, trouble voiding, or hematuria Musculoskeletal ROS: rt shoulder pain Neurological ROS: negative Dermatological ROS: no rash Medications Current Medications Acetaminophen (Tylenol) 650 mg PRN Q4HRS PRN PO pain, fever Last administered on 04/14/17 12:29; Start 04/14/17 at 11:45 Cyanocobalamin (Vitamin B-12) 1,000 mcg QMONTH IM ; Start 04/27/17 at 09:00 Escitalopram Oxalate (Lexapro) 20 mg DAILY PO Last administered on 04/14/17 12: 30; Start 04/14/17 at 10:00 Metformin HCl (Glucophage) 850 mg BIDWMEALS PO ; Start 04/15/17 at 08:00 Allergy Allergies Coded Allergies Type Severity Reaction Last Updated Verified No Known Drug Allergies 12/19/16 No Physical Exam Physical Exam General appearance - alert,well appearing , not in distress Mental Status - alert, oriented Head - normal Chest - clear to auscultation, no wheezes, rales or rhonchi, symmetric air entry Heart - S1 and S2 normal Abdomen - soft, nontender, nondistended, no masses or organomegaly Neurological - alert and oriented Musculoskeletal - no muscular tenderness noted Extremities - pedal edema Skin - warm and dry Labs Laboratory Tests Test 04/13/17 11:00 04/13/17 11:40 04/13/17 11:49 04/13/17 13:30 Sodium Level 142 mmol/L (136-145) Potassium Level 4.1 mmol/L (3.5-5.1) Chloride Level 105 mmol/L (98-107) Carbon Dioxide Level 22 mmol/L (21-32) Anion Gap 15 (6-14) Blood Urea Nitrogen 36 mg/dL (7-20) Creatinine 1.1 mg/dL (0.6-1.0) Estimated GFR (Cockcroft-Gault) 52.8 Glucose Level 333 mg/dL (70-99) Calcium Level 7.7 mg/dL (8.5-10.1) White Blood Count 18.3 x10^3/uL (4.0-11.0) Red Blood Count 2.45 x10^6/uL (3.50-5.40) Hemoglobin 6.8 g/dL (12.0-15.5) Hematocrit 19.4 % (36.0-47.0) Mean Corpuscular Volume 79 fL (79-100) Mean Corpuscular Hemoglobin 28 pg (25-35) Mean Corpuscular Hemoglobin Concent 35 g/dL (31-37) Red Cell Distribution Width 26.1 % (11.5-14.5) Platelet Count 119 x10^3/uL (140-400) Neutrophils (%) (Auto) 91 % (31-73) Lymphocytes (%) (Auto) 5 % (24-48) Monocytes (%) (Auto) 4 % (0-9) Eosinophils (%) (Auto) 0 % (0-3) Basophils (%) (Auto) 0 % (0-3) Neutrophils # (Auto) 16.6 x10^3uL (1.8-7.7) Lymphocytes # (Auto) 1.0 x10^3/uL (1.0-4.8) Monocytes # (Auto) 0.7 x10^3/uL (0.0-1.1) Eosinophils # (Auto) 0.0 x10^3/uL (0.0-0.7) Basophils # (Auto) 0.0 x10^3/uL (0.0-0.2) Glucose (Fingerstick) 321 mg/dL (70-99) Stool Occult Blood Negative (NEG) Test 04/13/17 14:30 04/13/17 16:04 04/13/17 22:12 04/14/17 05:35 Reticulocyte Count (auto) 6.8 % (0.5-2.5) 5.1 % (0.5-2.5) Haptoglobin 25 mg/dL (34-200) Iron Level 11 ug/dL (50-170) Total Iron Binding Capacity 225 ug/dL (250-450) Iron Saturation 5 % (15-34) Ferritin 668 ng/mL (8-252) Lactate Dehydrogenase 184 U/L (81-234) 182 U/L (81-234) Vitamin B12 Level 467 pg/mL (247-911) Serum Folate 23.64 ng/ml (3.2-20.0) Glucose (Fingerstick) 170 mg/dL (70-99) 138 mg/dL (70-99) White Blood Count 14.0 x10^3/uL (4.0-11.0) Red Blood Count 2.01 x10^6/uL (3.50-5.40) Hemoglobin 5.5 g/dL (12.0-15.5) Hematocrit 15.8 % (36.0-47.0) Mean Corpuscular Volume 78 fL (79-100) Mean Corpuscular Hemoglobin 27 pg (25-35) Mean Corpuscular Hemoglobin Concent 35 g/dL (31-37) Red Cell Distribution Width 26.0 % (11.5-14.5) Platelet Count 108 x10^3/uL (140-400) Neutrophils (%) (Auto) 90 % (31-73) Lymphocytes (%) (Auto) 4 % (24-48) Monocytes (%) (Auto) 5 % (0-9) Eosinophils (%) (Auto) 0 % (0-3) Basophils (%) (Auto) 0 % (0-3) Neutrophils # (Auto) 12.7 x10^3uL (1.8-7.7) Lymphocytes # (Auto) 0.6 x10^3/uL (1.0-4.8) Monocytes # (Auto) 0.7 x10^3/uL (0.0-1.1) Eosinophils # (Auto) 0.0 x10^3/uL (0.0-0.7) Basophils # (Auto) 0.0 x10^3/uL (0.0-0.2) Sodium Level 141 mmol/L (136-145) Potassium Level 3.7 mmol/L (3.5-5.1) Chloride Level 104 mmol/L (98-107) Carbon Dioxide Level 26 mmol/L (21-32) Anion Gap 11 (6-14) Blood Urea Nitrogen 29 mg/dL (7-20) Creatinine 0.8 mg/dL (0.6-1.0) Estimated GFR (Cockcroft-Gault) 76.2 Glucose Level 192 mg/dL (70-99) Calcium Level 8.4 mg/dL (8.5-10.1) Test 04/14/17 07:37 04/14/17 11:36 04/14/17 16:36 04/14/17 21:11 Glucose (Fingerstick) 222 mg/dL (70-99) 261 mg/dL (70-99) 294 mg/dL (70-99) 209 mg/dL (70-99) Test 04/15/17 05:05 04/15/17 07:20 White Blood Count 9.5 x10^3/uL (4.0-11.0) Red Blood Count 2.33 x10^6/uL (3.50-5.40) Hemoglobin 6.6 g/dL (12.0-15.5) Hematocrit 18.1 % (36.0-47.0) Mean Corpuscular Volume 78 fL (79-100) Mean Corpuscular Hemoglobin 28 pg (25-35) Mean Corpuscular Hemoglobin Concent 37 g/dL (31-37) Red Cell Distribution Width 22.2 % (11.5-14.5) Platelet Count 94 x10^3/uL (140-400) Sodium Level 143 mmol/L (136-145) Potassium Level 3.9 mmol/L (3.5-5.1) Chloride Level 106 mmol/L (98-107) Carbon Dioxide Level 28 mmol/L (21-32) Anion Gap 9 (6-14) Blood Urea Nitrogen 26 mg/dL (7-20) Creatinine 0.9 mg/dL (0.6-1.0) Estimated GFR (Cockcroft-Gault) 66.5 Glucose Level 176 mg/dL (70-99) Calcium Level 8.2 mg/dL (8.5-10.1) Glucose (Fingerstick) 203 mg/dL (70-99) Laboratory Tests Test 04/14/17 11:36 04/14/17 16:36 04/14/17 21:11 04/15/17 05:05 Glucose (Fingerstick) 261 mg/dL (70-99) 294 mg/dL (70-99) 209 mg/dL (70-99) White Blood Count 9.5 x10^3/uL (4.0-11.0) Red Blood Count 2.33 x10^6/uL (3.50-5.40) Hemoglobin 6.6 g/dL (12.0-15.5) Hematocrit 18.1 % (36.0-47.0) Mean Corpuscular Volume 78 fL (79-100) Mean Corpuscular Hemoglobin 28 pg (25-35) Mean Corpuscular Hemoglobin Concent 37 g/dL (31-37) Red Cell Distribution Width 22.2 % (11.5-14.5) Platelet Count 94 x10^3/uL (140-400) Sodium Level 143 mmol/L (136-145) Potassium Level 3.9 mmol/L (3.5-5.1) Chloride Level 106 mmol/L (98-107) Carbon Dioxide Level 28 mmol/L (21-32) Anion Gap 9 (6-14) Blood Urea Nitrogen 26 mg/dL (7-20) Creatinine 0.9 mg/dL (0.6-1.0) Estimated GFR (Cockcroft-Gault) 66.5 Glucose Level 176 mg/dL (70-99) Calcium Level 8.2 mg/dL (8.5-10.1) Test 04/15/17 07:20 Glucose (Fingerstick) 203 mg/dL (70-99) Vitals Vital Signs Date Time Temp Pulse Resp B/P (MAP) Pulse Ox O2 Delivery O2 Flow Rate FiO2 04/15/17 07:43 93 Nasal Cannula 2.0 04/15/17 07:05 98.8 81 18 113/39 (63) 98.8 Assessment Assessment abd pain uti dm anemia hereditiory spherocytosis esteban wbc possible sepsis due to UTI h/o cervical stenosis with paraplegia obesity possible aspiration Plan Plan check cultures change rocephine to zosyn for possible aspiration supportive care GODWIN THOMPSON MD Apr 15, 2017 08:17
[2017-04-15] MEDS: INSULIN ASPART 300 UNITS/3 ML INSULN.PEN SQ SCH ×6 (08:21→17:48)
[2017-04-15] MEDS: PIPERACILLIN/TAZOBACTAM 3.375 GM in IV NORMAL SALINE 50ML 50 ML IV SCH ×2 (12:36→17:41)
[2017-04-15] MEDS: ACETAMINOPHEN/CODEINE 300/30MG TABLET. PO PRN (15:13)
[2017-04-15] MEDS ORDERED: GLUCAGON,HUMAN RECOMBINANT 1 MG/ML VIAL. IM PRN (15:15)
--- NOTE | 2017-04-15 15:18 | PDOC ---
SUBJECTIVE Subjective sleepy but arousable When she woke up she did c/o pain in her RUQ and right shoulder She dropped her H&h again and she recieving her second unit of PRBCS OBJECTIVE Objective Sleeping propped up in bed in NAD Did c/o tenderness in her RUQ and her right shoulder . Looked extremely pale with marked generalised anasarca Vital Signs Vital Signs Date Time Temp Pulse Resp B/P (MAP) Pulse Ox O2 Delivery O2 Flow Rate FiO2 04/15/17 14:39 99.1 75 18 118/52 99.1 04/15/17 14:03 99.0 77 18 128/42 99.0 04/15/17 13:47 99.7 77 18 131/46 99.7 04/15/17 12:02 99.0 82 18 123/49 99.0 04/15/17 11:14 93 Nasal Cannula 2.0 04/15/17 11:10 98.1 75 19 115/50 (71) 96 Nasal Cannula 2.0 98.1 04/15/17 11:02 98.1 75 19 115/50 98.1 04/15/17 10:02 99.9 77 16 122/53 99.9 04/15/17 09:41 100.8 91 18 114/41 100.8 04/15/17 08:00 Nasal Cannula 2.0 04/15/17 07:43 93 Nasal Cannula 2.0 04/15/17 07:05 98.8 81 18 113/39 (63) 92 Nasal Cannula 2.0 98.8 04/15/17 02:58 99.5 69 20 114/36 (62) 100 Nasal Cannula 2.0 99.5 04/14/17 22:53 98.6 76 16 110/38 (62) 96 Nasal Cannula 2.0 98.6 04/14/17 22:32 98.6 76 16 110/38 98.6 04/14/17 21:32 100.0 79 18 94/34 100.0 04/14/17 20:32 101.1 79 18 128/45 101.1 04/14/17 20:00 Nasal Cannula 2.0 04/14/17 19:15 99.7 81 18 126/47 (73) 91 Nasal Cannula 2.0 99.7 04/14/17 19:15 99.7 81 18 126/47 99.7 04/14/17 19:09 96 Nasal Cannula 2.0 04/14/17 18:15 99.9 86 16 116/47 99.9 04/14/17 17:13 101.5 80 16 125/39 101.5 I & O Intake and Output 04/15/17 07:00 Intake Total 2971 ml Output Total 3 ml Balance 2968 ml Intake Oral 400 ml Blood Product IV Normal Saline Flush 2571 ml Output Urine Total 3 ml # Voids 3 PHYSICAL EXAM Physical Exam pale but not jaundiced marked generalised anasarca ASSESSMENT/PLAN Assessment/Plan Hereditary sphercytosis with marked heolytic anemia recueved so far 4 unit of PRBCS 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 UTI growing E Coli sensitive to Zosyn Problems: COMMENT Lab Laboratory Tests Test 04/14/17 16:36 04/14/17 21:11 04/15/17 05:05 04/15/17 07:20 Glucose (Fingerstick) 294 mg/dL (70-99) 209 mg/dL (70-99) 203 mg/dL (70-99) White Blood Count 9.5 x10^3/uL (4.0-11.0) Red Blood Count 2.33 x10^6/uL (3.50-5.40) Hemoglobin 6.6 g/dL (12.0-15.5) Hematocrit 18.1 % (36.0-47.0) Mean Corpuscular Volume 78 fL (79-100) Mean Corpuscular Hemoglobin 28 pg (25-35) Mean Corpuscular Hemoglobin Concent 37 g/dL (31-37) Red Cell Distribution Width 22.2 % (11.5-14.5) Platelet Count 94 x10^3/uL (140-400) Sodium Level 143 mmol/L (136-145) Potassium Level 3.9 mmol/L (3.5-5.1) Chloride Level 106 mmol/L (98-107) Carbon Dioxide Level 28 mmol/L (21-32) Anion Gap 9 (6-14) Blood Urea Nitrogen 26 mg/dL (7-20) Creatinine 0.9 mg/dL (0.6-1.0) Estimated GFR (Cockcroft-Gault) 66.5 Glucose Level 176 mg/dL (70-99) Calcium Level 8.2 mg/dL (8.5-10.1) Test 04/15/17 11:24 Glucose (Fingerstick) 186 mg/dL (70-99) USMAN BRAUN MD Apr 15, 2017 15:18
--- NOTE | 2017-04-15 16:52 | PDOC ---
PROGRESS NOTES Subjective Subjective Heme f/u of anemia was called by primary svc regarding continued low hemoglobin hemoglobin is up to 6.6 from 5.5 yesterday has HS - have reviewed labs/CT and talked with blood bank She does not have any evidence of warm or cold ab Currently with UTI - E coli and on abx zosyn Have reviewed her PHM/PSH/FH/SH as per admit/consults and no additions She does interact, but has MR - nods head and answers with single words and phrases and indicated still with some abd pain Objective Objective Vital Signs Date Time Temp Pulse Resp B/P (MAP) Pulse Ox O2 Delivery O2 Flow Rate FiO2 04/15/17 16:13 16 96 Nasal Cannula 2.0 04/15/17 16:00 99.0 78 122/54 99.0 Intake and Output 04/15/17 07:00 Intake Total 2971 ml Output Total 3 ml Balance 2968 ml Intake Oral 400 ml Blood Product IV Normal Saline Flush 2571 ml Output Urine Total 3 ml # Voids 3 Physical Exam Abdomen: Soft, Other (obese) Heart: Regular rate Extremities: No clubbing, No cyanosis General: Alert, Cooperative HEENT: Other (may have some scleral icterus) Lungs: Clear to auscultation MUSCULOSKELETAL: No swelling, Other (was able to move le/feet ) Neck: Supple Assessment Assessment Problems Medical Problems: (1) Abdominal pain Status: Acute She did have prior anjali in past (2) Leukocytosis Status: Acute (3) Urinary tract infection Status: Acute Have reviewed labs/records and d/w blood bank No other apparent cause for anemia/hemolysis specifically no warm or cold ab I think this is likely due to her underlying HS and worsened in setting of infection. It looks like she has had 2 units of blood to my review and would give 1 more unit today and follow Have not seen hemoglobin over 10 on review of recent records per [facility] Would not entertain splenectomy in this setting Comment Review of Relevant I have reviewed the following items shira (where applicable) has been applied. Labs Laboratory Tests Test 04/13/17 22:12 04/14/17 05:35 04/14/17 07:37 04/14/17 11:36 Glucose (Fingerstick) 138 mg/dL (70-99) 222 mg/dL (70-99) 261 mg/dL (70-99) White Blood Count 14.0 x10^3/uL (4.0-11.0) Red Blood Count 2.01 x10^6/uL (3.50-5.40) Hemoglobin 5.5 g/dL (12.0-15.5) Hematocrit 15.8 % (36.0-47.0) Mean Corpuscular Volume 78 fL (79-100) Mean Corpuscular Hemoglobin 27 pg (25-35) Mean Corpuscular Hemoglobin Concent 35 g/dL (31-37) Red Cell Distribution Width 26.0 % (11.5-14.5) Platelet Count 108 x10^3/uL (140-400) Neutrophils (%) (Auto) 90 % (31-73) Lymphocytes (%) (Auto) 4 % (24-48) Monocytes (%) (Auto) 5 % (0-9) Eosinophils (%) (Auto) 0 % (0-3) Basophils (%) (Auto) 0 % (0-3) Neutrophils # (Auto) 12.7 x10^3uL (1.8-7.7) Lymphocytes # (Auto) 0.6 x10^3/uL (1.0-4.8) Monocytes # (Auto) 0.7 x10^3/uL (0.0-1.1) Eosinophils # (Auto) 0.0 x10^3/uL (0.0-0.7) Basophils # (Auto) 0.0 x10^3/uL (0.0-0.2) Reticulocyte Count (auto) 5.1 % (0.5-2.5) Sodium Level 141 mmol/L (136-145) Potassium Level 3.7 mmol/L (3.5-5.1) Chloride Level 104 mmol/L (98-107) Carbon Dioxide Level 26 mmol/L (21-32) Anion Gap 11 (6-14) Blood Urea Nitrogen 29 mg/dL (7-20) Creatinine 0.8 mg/dL (0.6-1.0) Estimated GFR (Cockcroft-Gault) 76.2 Glucose Level 192 mg/dL (70-99) Calcium Level 8.4 mg/dL (8.5-10.1) Lactate Dehydrogenase 182 U/L (81-234) Test 04/14/17 16:36 04/14/17 21:11 04/15/17 05:05 04/15/17 07:20 Glucose (Fingerstick) 294 mg/dL (70-99) 209 mg/dL (70-99) 203 mg/dL (70-99) White Blood Count 9.5 x10^3/uL (4.0-11.0) Red Blood Count 2.33 x10^6/uL (3.50-5.40) Hemoglobin 6.6 g/dL (12.0-15.5) Hematocrit 18.1 % (36.0-47.0) Mean Corpuscular Volume 78 fL (79-100) Mean Corpuscular Hemoglobin 28 pg (25-35) Mean Corpuscular Hemoglobin Concent 37 g/dL (31-37) Red Cell Distribution Width 22.2 % (11.5-14.5) Platelet Count 94 x10^3/uL (140-400) Sodium Level 143 mmol/L (136-145) Potassium Level 3.9 mmol/L (3.5-5.1) Chloride Level 106 mmol/L (98-107) Carbon Dioxide Level 28 mmol/L (21-32) Anion Gap 9 (6-14) Blood Urea Nitrogen 26 mg/dL (7-20) Creatinine 0.9 mg/dL (0.6-1.0) Estimated GFR (Cockcroft-Gault) 66.5 Glucose Level 176 mg/dL (70-99) Calcium Level 8.2 mg/dL (8.5-10.1) Test 04/15/17 11:24 Glucose (Fingerstick) 186 mg/dL (70-99) Laboratory Tests Test 04/14/17 21:11 04/15/17 05:05 04/15/17 07:20 04/15/17 11:24 Glucose (Fingerstick) 209 mg/dL (70-99) 203 mg/dL (70-99) 186 mg/dL (70-99) White Blood Count 9.5 x10^3/uL (4.0-11.0) Red Blood Count 2.33 x10^6/uL (3.50-5.40) Hemoglobin 6.6 g/dL (12.0-15.5) Hematocrit 18.1 % (36.0-47.0) Mean Corpuscular Volume 78 fL (79-100) Mean Corpuscular Hemoglobin 28 pg (25-35) Mean Corpuscular Hemoglobin Concent 37 g/dL (31-37) Red Cell Distribution Width 22.2 % (11.5-14.5) Platelet Count 94 x10^3/uL (140-400) Sodium Level 143 mmol/L (136-145) Potassium Level 3.9 mmol/L (3.5-5.1) Chloride Level 106 mmol/L (98-107) Carbon Dioxide Level 28 mmol/L (21-32) Anion Gap 9 (6-14) Blood Urea Nitrogen 26 mg/dL (7-20) Creatinine 0.9 mg/dL (0.6-1.0) Estimated GFR (Cockcroft-Gault) 66.5 Glucose Level 176 mg/dL (70-99) Calcium Level 8.2 mg/dL (8.5-10.1) Microbiology 04/13/17 Blood Culture - Preliminary, Resulted NO GROWTH AFTER 2 DAYS 04/13/17 Urine Culture - Final, Complete 04/13/17 Urine Culture Result 1 (CÉSAR) - Final, Complete 04/13/17 Antimicrobic Susceptibility - Final, Complete Medications Current Medications Fentanyl Citrate (Fentanyl 2ml Vial) 25 mcg PRN Q15MIN PRN IV PAIN GREATER THAN 3/10 Last administered on 04/12/17 23:33; Start 04/12/17 at 23:15; Stop 04/13 at 03:00; Status DC Ondansetron HCl (Zofran) 4 mg 1X ONCE IV Last administered on 04/12/17 23:33; Start 04/12/17 at 23:30; Stop 04/12/17 at 23:31; Status DC Iohexol (Omnipaque 300 Mg/ml) 75 ml 1X ONCE IV Last administered on 04/13/17 00:09; Start 04/12/17 at 23:45; Stop 04/12/17 at 23:46; Status DC Info (Do NOT chart on this entry -- for MONITORING) 1 each PRN DAILY PRN MC SEE COMMENTS; Start 04/12/17 at 23:45; Stop 04/14/17 at 23:44; Status DC Ceftriaxone Sodium 1 gm/ Sodium Chloride 50 ml @ 100 mls/hr Q24H IV Last administered on 04/14/17 23:19; Start 04/13/17 at 23:00; Stop 04/15/17 at 08:17; Status DC Ceftriaxone Sodium 50 ml @ 100 mls/hr 1X ONCE IV Last administered on 01:38; Start 04/13/17 at 01:30; Stop 04/13/17 at 01:59; Status DC Ondansetron HCl (Zofran) 4 mg PRN Q8HRS PRN IV NAUSEA/VOMITING; Start 04/13/17 at 01:30; Stop 04/14/17 at 01:29; Status DC Fentanyl Citrate (Fentanyl 2ml Vial) 50 mcg PRN Q2HR PRN IV SEVERE PAIN Last administered on 04/13/17 03:23; Start 04/13/17 at 01:30; Stop 04/14/17 at 01:29; Status DC Acetaminophen (Tylenol) 650 mg PRN Q4HRS PRN PO FEVER; Start 04/13/17 at 01:30; Stop 04/14/17 at 01:29; Status DC Insulin Aspart (NovoLOG) 0-5 UNITS TIDWMEALS SQ Last administered on 04/13/17 12:55; Start 04/13/17 at 08:00; Stop 04/13/17 at 17:00; Status DC Dextrose (Dextrose 50%-Water Syringe) 12.5 gm PRN Q15MIN PRN IV SEE COMMENTS; Start 04/13/17 at 02:00; Stop 04/13/17 at 16:22; Status DC Acetaminophen (Tylenol) 650 mg PRN Q8HRS PRN PO PAIN; Start 04/13/17 at 09:45; Stop 04/14/17 at 11:43; Status DC Acetaminophen/ Codeine Phosphate (Tylenol #3) 1 tab PRN Q4HRS PRN PO PAIN Last administered on 04/15/17 15:13; Start 04/13/17 at 09:45 Baclofen (Lioresal) 10 mg QID PO Last administered on 04/15/17 13:30; Start 04/13/17 at 13:00 Cyanocobalamin (Vitamin B-12) 1,000 mcg QMONTH IM ; Start 04/27/17 at 09:00 Famotidine (Pepcid) 20 mg HS PO Last administered on 04/14/17 20:18; Start 04/13 at 21:00 Furosemide (Lasix) 20 mg DAILY PO Last administered on 04/13/17 12:35; Start at 10:00; Stop 04/13/17 at 14:46; Status DC Gabapentin (Neurontin) 100 mg BID PO Last administered on 04/15/17 08:07; Start 04/13/17 at 10:00 Insulin Aspart (NovoLOG) 7 units TIDBFRMEAL SQ Last administered on 04/15/17 08 :22; Start 04/13/17 at 11:30 Albuterol/ Ipratropium (Duoneb) 3 ml [id number] IH Last administered on 04/15/17 11 :13; Start 04/13/17 at 10:00 Al Hydroxide/Mg Hydroxide (Mylanta Plus Xs) 30 ml PRN DAILY PRN PO CONSTIPATION ; Start 04/13/17 at 09:45 Magnesium Hydroxide (Milk Of Magnesia) 2,400 mg PRN DAILY PRN PO CONSTIPATION; Start 04/13/17 at 09:45 Metformin HCl (Glucophage) 850 mg BIDWMEALS PO Last administered on 04/15/17 08 :07; Start 04/15/17 at 08:00 Senna/Docusate Sodium (Senna Plus) 1 tab BID PO Last administered on 04/15/17 08:07; Start 04/13/17 at 10:00 Sucralfate (Carafate) 1 gm TIDAC PO Last administered on 04/15/17 12:36; Start 04/13/17 at 11:30 Cyclobenzaprine HCl (Flexeril) 5 mg BID PO Last administered on 04/15/17 08:08 ; Start 04/13/17 at 10:15 Artificial Tears (Artificial Tears) 1 drop QID OU Last administered on 13:29; Start 04/13/17 at 10:15 Escitalopram Oxalate (Lexapro) 20 mg DAILY PO Last administered on 04/13/17 12: 39; Start 04/13/17 at 11:00; Stop 04/14/17 at 09:55; Status DC Fluticasone Propionate (Flonase) 2 spray DAILY NS ; Start 04/13/17 at 10:00; Stop 04/13/17 at 10:30; Status DC Folic Acid (Folic Acid) 1 mg DAILY PO Last administered on 04/15/17 08:07; Start 04/13/17 at 10:00 Non-Formulary Medication 1 mg PRN PRN IJ HYPOGLYCEMIA; Start 04/13/17 at 09:45; Status Cancel Multivitamins (Thera M Plus) 1 tab DAILY PO Last administered on 04/15/17 08:07 ; Start 04/13/17 at 10:00 Potassium Chloride (Klor-Con) 10 meq [id number] PO Last administered on 08:08; Start 04/13/17 at 10:00 Insulin Aspart (NovoLOG) 0-7 UNITS TIDWMEALS SQ Last administered on 04/15/17 13:31; Start 04/13/17 at 12:00 Dextrose (Dextrose 50%-Water Syringe) 12.5 gm PRN Q15MIN PRN IV SEE COMMENTS; Start 04/13/17 at 10:00 Enoxaparin Sodium (Lovenox 40mg Syringe) 40 mg Q24H SQ ; Start 04/13/17 at 10:00 ; Stop 04/13/17 at 14:46; Status DC Fluticasone Propionate (Flonase) 2 spray DAILY NS Last administered on 08:17; Start 04/13/17 at 11:00 Escitalopram Oxalate (Lexapro) 20 mg DAILY PO Last administered on 04/15/17 08: 08; Start 04/14/17 at 10:00 Acetaminophen (Tylenol) 650 mg PRN Q4HRS PRN PO pain, fever Last administered on 04/14/17 12:29; Start 04/14/17 at 11:45 Piperacillin Sod/ Tazobactam Sod 3.375 gm/Sodium Chloride 50 ml @ 100 mls/hr Q6HRS IV Last administered on 04/15/17 12:36; Start 04/15/17 at 12:00 Glucagon (Glucagen) 1 mg PRN 1X PRN IM HYPOGLYCEMIA; Start 04/15/17 at 15:15 Active Scripts Active Reported Tylenol With Codeine #3 Tablet (Acetaminophen/Codeine Phosphate) 1 Each Tablet 1 Tab PO PRN Q4HRS PRN Artificial Tears Eye Drops (Dextran 70/Hypromellose) 15 Ml Drops 1 Drop EACHEYE QID Lexapro (Escitalopram Oxalate) 20 Mg Tablet 1 Tab PO DAILY Famotidine 20 Mg Tablet 20 Mg PO HS Metformin Hcl 850 Mg Tablet 850 Mg PO BIDWMEALS Linzess (Linaclotide) 72 Mcg Capsule 145 Mcg PO Potassium Chloride 10 Meq Capsule.er 10 Meq PO DAILY Flonase Allergy Relief (Fluticasone Propionate) 9.9 Ml [place].susp 2 Sprays NS DAILY Glucagen (Glucagon,Human Recombinant) 1 Mg Vial 1 Mg IJ PRN PRN Milk Of Magnesia (Magnesium Hydroxide) 400 Mg/5 Ml Oral.susp 30 Ml PO DAILY PRN Mi Acid Suspension (Mag Hydrox/Al Hydrox/Simeth) 355 Ml Oral.susp 30 Ml PO DAILY PRN Loperamide (Loperamide Hcl) 2 Mg Capsule 2 Mg PO PRN PRN Acetaminophen 325 Mg Tablet 2 Tab PO Q8HRS PRN Sucralfate 1 Gm Tablet 1 Tab PO TID Senna Plus Tablet (Sennosides/Docusate Sodium) 1 Each Tablet 1 Each PO BID Cyanocobalamin Injection (Cyanocobalamin (Vitamin B-12)) 1,000 Mcg/1 Ml Vial 1 Ml IM QMONTH Baclofen 10 Mg Tablet 10 Mg PO QID Novolog Flexpen (Insulin Aspart) 100 Unit/1 Ml Insuln.pen 7 Unit SQ TIDBFRMEAL Duoneb 0.5 Mg-3 Mg/3 Ml Soln (Ipratropium/Albuterol Sulfate) 3 Ml Ampul.neb 3 Ml IH [id number] Multi Vitamin Daily (Multivitamin) 1 Each Tablet 1 Each PO DAILY Gabapentin 100 Mg Capsule 100 Mg PO BID Lasix (Furosemide) 20 Mg Tablet 20 Mg PO DAILY Folic Acid 20 Mg Capsule 1 Mg PO DAILY Cyclobenzaprine Hcl 5 Mg Tablet 5 Mg PO BID Vitals/I & O Vital Sign - Last 24 Hours 04/14/17 04/14/17 04/14/17 04/14/17 17:13 18:15 19:09 19:15 Temp 101.5 99.9 99.7 101.5 99.9 99.7 Pulse 80 86 81 Resp 16 16 18 B/P (MAP) 125/39 116/47 126/47 Pulse Ox 96 O2 Delivery Nasal Cannula O2 Flow Rate 2.0 04/14/17 04/14/17 04/14/17 04/14/17 19:15 20:00 20:32 21:32 Temp 99.7 101.1 100.0 99.7 101.1 100.0 Pulse 81 79 79 Resp 18 18 18 B/P (MAP) 126/47 (73) 128/45 94/34 Pulse Ox 91 O2 Delivery Nasal Cannula Nasal Cannula O2 Flow Rate 2.0 2.0 04/14/17 04/14/17 04/15/17 04/15/17 22:32 22:53 02:58 07:05 Temp 98.6 98.6 99.5 98.8 98.6 98.6 99.5 98.8 Pulse 76 76 69 81 Resp 16 16 20 18 B/P (MAP) 110/38 110/38 (62) 114/36 (62) 113/39 (63) Pulse Ox 96 100 92 O2 Delivery Nasal Cannula Nasal Cannula Nasal Cannula O2 Flow Rate 2.0 2.0 2.0 04/15/17 04/15/17 04/15/17 04/15/17 07:43 08:00 09:41 10:02 Temp 100.8 99.9 100.8 99.9 Pulse 91 77 Resp 18 16 B/P (MAP) 114/41 122/53 Pulse Ox 93 O2 Delivery Nasal Cannula Nasal Cannula O2 Flow Rate 2.0 2.0 04/15/17 04/15/17 04/15/17 04/15/17 11:02 11:10 11:14 12:02 Temp 98.1 98.1 99.0 98.1 98.1 99.0 Pulse 75 75 82 Resp 19 19 18 B/P (MAP) 115/50 115/50 (71) 123/49 Pulse Ox 96 93 O2 Delivery Nasal Cannula Nasal Cannula O2 Flow Rate 2.0 2.0 04/15/17 04/15/17 04/15/17 04/15/17 13:47 14:03 14:39 15:05 Temp 99.7 99.0 99.1 98.9 99.7 99.0 99.1 98.9 Pulse 77 77 75 76 Resp 18 18 18 19 B/P (MAP) 131/46 128/42 118/52 118/52 (74) Pulse Ox 96 O2 Delivery Nasal Cannula O2 Flow Rate 2.0 04/15/17 04/15/17 04/15/17 15:13 16:00 16:13 Temp 99.0 99.0 Pulse 78 Resp 18 16 B/P (MAP) 122/54 Pulse Ox 96 96 O2 Delivery Nasal Cannula Nasal Cannula O2 Flow Rate 2.0 2.0 Intake and Output 04/14/17 04/14/17 04/15/17 15:00 23:00 07:00 Intake Total 2971 ml Output Total 3 ml Balance 2968 ml NILESH BRYAN MD Apr 15, 2017 16:52
[2017-04-15] MEDS: FAMOTIDINE 20 MG TABLET. PO SCH (21:54)
[2017-04-16] MEDS: PIPERACILLIN/TAZOBACTAM 3.375 GM in IV NORMAL SALINE 50ML 50 ML IV SCH ×4 (00:43→17:15)
[2017-04-16 03:00] VITALS: BP 119/42
[2017-04-16 07:03] LABS: INR 1.1 (0.8-1.1); PROTHROMBIN TIME PATIENT 13.9 SEC (11.7-14.0)
[2017-04-16 07:04] LABS: HEMATOCRIT 24.2 % (36.0-47.0); HEMOGLOBIN 8.5 g/dL (12.0-15.5); RED BLOOD COUNT 3.01 x10^6/uL (3.50-5.40); RED CELL DISTRIBUTION WIDTH 20.7 % (11.5-14.5); WHITE BLOOD COUNT 8.5 x10^3/uL (4.0-11.0)
[2017-04-16 07:14] LABS: ALBUMIN 3.1 g/dL (3.4-5.0); ALBUMIN/GLOBULIN RATIO 0.9 (1.0-1.7); CREATININE 0.9 mg/dL (0.6-1.0); GFR 66.5; POTASSIUM 3.8 mmol/L (3.5-5.1); TOTAL BILIRUBIN 2.9 mg/dL (0.2-1.0); TOTAL PROTEIN 6.7 g/dL (6.4-8.2)
--- NOTE | 2017-04-16 07:15 | PDOC ---
Infectious Disease Note Subjective Subjective Some better. Wants a sip of water ROS ROS GEN: Denies fevers, chills, sweats HEENT: Denies blurred vision, sore throat CV: Denies chest pain RESP: Denies shortness of air, cough GI: Denies n/v/d NEURO: Denies confusion, dizziness MSK: Denies weakness, joint pain/swelling Vital Sign Vital Signs Vital Signs Date Time Temp Pulse Resp B/P (MAP) Pulse Ox O2 Delivery O2 Flow Rate FiO2 04/16/17 03:00 97.9 71 18 119/42 (67) 97 Nasal Cannula 2.0 97.9 Physical Exam PHYSICAL EXAM GENERAL: NAD, Alert, coop HEENT: PERRL, OC/OP- clear NECK: Supple, no JVD, no LN LUNGS: Clear HEART: S1S2, no gallop, no murmur ABD: Soft, NT, no organomegaly, no rebound, obese EXT: trace edema, no cyanosis BREAKFAST COOK: Alert, oriented, no focal neurologic deficit SKIN: No rash IV: ok Labs Lab Laboratory Tests Test 04/15/17 07:20 04/15/17 11:24 04/15/17 16:38 04/15/17 20:42 Glucose (Fingerstick) 203 mg/dL (70-99) 186 mg/dL (70-99) 258 mg/dL (70-99) 168 mg/dL (70-99) Test 04/16/17 05:50 White Blood Count 8.5 x10^3/uL (4.0-11.0) Red Blood Count 3.01 x10^6/uL (3.50-5.40) Hemoglobin 8.5 g/dL (12.0-15.5) Hematocrit 24.2 % (36.0-47.0) Mean Corpuscular Volume 81 fL (79-100) Mean Corpuscular Hemoglobin 28 pg (25-35) Mean Corpuscular Hemoglobin Concent 35 g/dL (31-37) Red Cell Distribution Width 20.7 % (11.5-14.5) Platelet Count 93 x10^3/uL (140-400) Prothrombin Time 13.9 SEC (11.7-14.0) Prothromb Time International Ratio 1.1 (0.8-1.1) Micro 7/6 Escherichia coli Greater than 100,000 colony forming units per mL ANTIMICROBIAL SUSCEPTIBILITY Final Comment S = Susceptible; I = Intermediate; R = Resistant P = Positive; N = Negative MICS are expressed in micrograms per mL Antibiotic RSLT#1 RSLT#2 RSLT#3 RSLT#4 Amoxicillin/Clavulanic Acid S Ampicillin R Cefepime S Ceftriaxone S Cefuroxime S Cephalothin I Ciprofloxacin R Ertapenem S Gentamicin S Imipenem S Levofloxacin R Nitrofurantoin S Piperacillin S Tetracycline R Tobramycin S Trimethoprim/Sulfa R Objective Assessment abd pain - better uti - Ecoli 04/13 dm anemia hereditiory spherocytosis esteban wbc possible sepsis due to UTI h/o cervical stenosis with paraplegia obesity possible aspiration Plan Plan of Care Cont zosyn for now F/u labs/response VALE HORNER MD Apr 16, 2017 07:15
[2017-04-16 07:27] VITALS: BP 102/35
[2017-04-16] MEDS: IPRATRPIUM/ALBUTEROL 0.5/2.5MG 3 ML NEBU. IH SCH ×3 (07:39→19:32)
[2017-04-16] MEDS: FLUTICASONE 50MCG/NASAL SPRAY 16GM BOTTLE. NS SCH (08:04)
[2017-04-16] MEDS: POLYVINYL ALCOHOL 1.4% OPHTH SOLUTION 15ML BOTTLE. OU SCH ×4 (08:04→20:38)
[2017-04-16] MEDS: MULTIVITAMIN with MINERAL TABLET. PO SCH (08:05)
[2017-04-16] MEDS: FOLIC ACID 1 MG TABLET. PO SCH (08:05)
[2017-04-16] MEDS: POTASSIUM CHLORIDE 10 MEQ TABLET.ER. PO SCH (08:05)
[2017-04-16] MEDS: ESCITALOPRAM 5 MG TABLET. PO SCH (08:05)
[2017-04-16] MEDS: BACLOFEN 10 MG TABLET. PO SCH ×4 (08:05→20:39)
[2017-04-16] MEDS: SUCRALFATE 1 GM TABLET. PO SCH ×3 (08:05→17:14)
[2017-04-16] MEDS: SENNOSIDES/DOCUSATE 8.6/50MG TABLET. PO SCH ×2 (08:05→20:44)
[2017-04-16] MEDS: GABAPENTIN 100 MG CAPSULE. PO SCH ×2 (08:06→20:39)
[2017-04-16] MEDS: metFORMIN 850 MG TABLET PO SCH ×2 (08:06→17:14)
[2017-04-16] MEDS: CYCLOBENZAPRINE 10 MG TABLET. PO SCH ×2 (08:06→20:39)
[2017-04-16] MEDS: INSULIN ASPART 300 UNITS/3 ML INSULN.PEN SQ SCH ×6 (08:11→17:22)
--- NOTE | 2017-04-16 09:33 | PDOC ---
PROGRESS NOTES Subjective Subjective Heme f/u Hemoglobin up to 8.5 after 2 u blood 04/15 She still indicated some pain around right shoulder Objective Objective Vital Signs Date Time Temp Pulse Resp B/P (MAP) Pulse Ox O2 Delivery O2 Flow Rate FiO2 04/16/17 07:39 95 Nasal Cannula 2.0 04/16/17 07:27 98.4 67 18 102/35 (57) 98.4 Intake and Output 04/16/17 07:00 Intake Total 3780 ml Output Total 1 ml Balance 3779 ml Intake Oral 2875 ml Blood Product IV Normal Saline Flush 905 ml Stool Total 1 ml # Voids 4 Physical Exam Abdomen: Normal bowel sounds, Soft Heart: Regular rate Extremities: No edema General: Alert, No acute distress HEENT: Atraumatic Assessment Assessment Anemia - chronic with hereditary spherocytosis with acute worsening with current UTI Hemoglobin responded to transfusion - testing did not show warm or cold ab WBC is better with rx UTI and plts are sl low, but expect they will improve with time. No different heme recs at present On abx for E coli UTI Comment Review of Relevant I have reviewed the following items shira (where applicable) has been applied. Labs Laboratory Tests Test 04/14/17 11:36 04/14/17 16:36 04/14/17 21:11 04/15/17 05:05 Glucose (Fingerstick) 261 mg/dL (70-99) 294 mg/dL (70-99) 209 mg/dL (70-99) White Blood Count 9.5 x10^3/uL (4.0-11.0) Red Blood Count 2.33 x10^6/uL (3.50-5.40) Hemoglobin 6.6 g/dL (12.0-15.5) Hematocrit 18.1 % (36.0-47.0) Mean Corpuscular Volume 78 fL (79-100) Mean Corpuscular Hemoglobin 28 pg (25-35) Mean Corpuscular Hemoglobin Concent 37 g/dL (31-37) Red Cell Distribution Width 22.2 % (11.5-14.5) Platelet Count 94 x10^3/uL (140-400) Sodium Level 143 mmol/L (136-145) Potassium Level 3.9 mmol/L (3.5-5.1) Chloride Level 106 mmol/L (98-107) Carbon Dioxide Level 28 mmol/L (21-32) Anion Gap 9 (6-14) Blood Urea Nitrogen 26 mg/dL (7-20) Creatinine 0.9 mg/dL (0.6-1.0) Estimated GFR (Cockcroft-Gault) 66.5 Glucose Level 176 mg/dL (70-99) Calcium Level 8.2 mg/dL (8.5-10.1) Test 04/15/17 07:20 04/15/17 11:24 04/15/17 16:38 04/15/17 20:42 Glucose (Fingerstick) 203 mg/dL (70-99) 186 mg/dL (70-99) 258 mg/dL (70-99) 168 mg/dL (70-99) Test 04/16/17 05:50 04/16/17 07:21 White Blood Count 8.5 x10^3/uL (4.0-11.0) Red Blood Count 3.01 x10^6/uL (3.50-5.40) Hemoglobin 8.5 g/dL (12.0-15.5) Hematocrit 24.2 % (36.0-47.0) Mean Corpuscular Volume 81 fL (79-100) Mean Corpuscular Hemoglobin 28 pg (25-35) Mean Corpuscular Hemoglobin Concent 35 g/dL (31-37) Red Cell Distribution Width 20.7 % (11.5-14.5) Platelet Count 93 x10^3/uL (140-400) Prothrombin Time 13.9 SEC (11.7-14.0) Prothromb Time International Ratio 1.1 (0.8-1.1) Sodium Level 140 mmol/L (136-145) Potassium Level 3.8 mmol/L (3.5-5.1) Chloride Level 104 mmol/L (98-107) Carbon Dioxide Level 26 mmol/L (21-32) Anion Gap 10 (6-14) Blood Urea Nitrogen 22 mg/dL (7-20) Creatinine 0.9 mg/dL (0.6-1.0) Estimated GFR (Cockcroft-Gault) 66.5 BUN/Creatinine Ratio 24 (6-20) Glucose Level 165 mg/dL (70-99) Calcium Level 9.0 mg/dL (8.5-10.1) Total Bilirubin 2.9 mg/dL (0.2-1.0) Aspartate Amino Transf (AST/SGOT) 11 U/L (15-37) Alanine Aminotransferase (ALT/SGPT) 10 U/L (14-59) Alkaline Phosphatase 79 U/L (46-116) Lactate Dehydrogenase 202 U/L (81-234) Total Protein 6.7 g/dL (6.4-8.2) Albumin 3.1 g/dL (3.4-5.0) Albumin/Globulin Ratio 0.9 (1.0-1.7) Glucose (Fingerstick) 184 mg/dL (70-99) Laboratory Tests Test 04/15/17 11:24 04/15/17 16:38 04/15/17 20:42 04/16/17 05:50 Glucose (Fingerstick) 186 mg/dL (70-99) 258 mg/dL (70-99) 168 mg/dL (70-99) White Blood Count 8.5 x10^3/uL (4.0-11.0) Red Blood Count 3.01 x10^6/uL (3.50-5.40) Hemoglobin 8.5 g/dL (12.0-15.5) Hematocrit 24.2 % (36.0-47.0) Mean Corpuscular Volume 81 fL (79-100) Mean Corpuscular Hemoglobin 28 pg (25-35) Mean Corpuscular Hemoglobin Concent 35 g/dL (31-37) Red Cell Distribution Width 20.7 % (11.5-14.5) Platelet Count 93 x10^3/uL (140-400) Prothrombin Time 13.9 SEC (11.7-14.0) Prothromb Time International Ratio 1.1 (0.8-1.1) Sodium Level 140 mmol/L (136-145) Potassium Level 3.8 mmol/L (3.5-5.1) Chloride Level 104 mmol/L (98-107) Carbon Dioxide Level 26 mmol/L (21-32) Anion Gap 10 (6-14) Blood Urea Nitrogen 22 mg/dL (7-20) Creatinine 0.9 mg/dL (0.6-1.0) Estimated GFR (Cockcroft-Gault) 66.5 BUN/Creatinine Ratio 24 (6-20) Glucose Level 165 mg/dL (70-99) Calcium Level 9.0 mg/dL (8.5-10.1) Total Bilirubin 2.9 mg/dL (0.2-1.0) Aspartate Amino Transf (AST/SGOT) 11 U/L (15-37) Alanine Aminotransferase (ALT/SGPT) 10 U/L (14-59) Alkaline Phosphatase 79 U/L (46-116) Lactate Dehydrogenase 202 U/L (81-234) Total Protein 6.7 g/dL (6.4-8.2) Albumin 3.1 g/dL (3.4-5.0) Albumin/Globulin Ratio 0.9 (1.0-1.7) Test 04/16/17 07:21 Glucose (Fingerstick) 184 mg/dL (70-99) Microbiology 04/13/17 Blood Culture - Preliminary, Resulted NO GROWTH AFTER 2 DAYS 04/13/17 Urine Culture - Final, Complete 04/13/17 Urine Culture Result 1 (CÉSAR) - Final, Complete 04/13/17 Antimicrobic Susceptibility - Final, Complete Medications Current Medications Fentanyl Citrate (Fentanyl 2ml Vial) 25 mcg PRN Q15MIN PRN IV PAIN GREATER THAN 3/10 Last administered on 04/12/17 23:33; Start 04/12/17 at 23:15; Stop 04/13 at 03:00; Status DC Ondansetron HCl (Zofran) 4 mg 1X ONCE IV Last administered on 04/12/17 23:33; Start 04/12/17 at 23:30; Stop 04/12/17 at 23:31; Status DC Iohexol (Omnipaque 300 Mg/ml) 75 ml 1X ONCE IV Last administered on 04/13/17 00:09; Start 04/12/17 at 23:45; Stop 04/12/17 at 23:46; Status DC Info (Do NOT chart on this entry -- for MONITORING) 1 each PRN DAILY PRN MC SEE COMMENTS; Start 04/12/17 at 23:45; Stop 04/14/17 at 23:44; Status DC Ceftriaxone Sodium 1 gm/ Sodium Chloride 50 ml @ 100 mls/hr Q24H IV Last administered on 04/14/17 23:19; Start 04/13/17 at 23:00; Stop 04/15/17 at 08:17; Status DC Ceftriaxone Sodium 50 ml @ 100 mls/hr 1X ONCE IV Last administered on 01:38; Start 04/13/17 at 01:30; Stop 04/13/17 at 01:59; Status DC Ondansetron HCl (Zofran) 4 mg PRN Q8HRS PRN IV NAUSEA/VOMITING; Start 04/13/17 at 01:30; Stop 04/14/17 at 01:29; Status DC Fentanyl Citrate (Fentanyl 2ml Vial) 50 mcg PRN Q2HR PRN IV SEVERE PAIN Last administered on 04/13/17 03:23; Start 04/13/17 at 01:30; Stop 04/14/17 at 01:29; Status DC Acetaminophen (Tylenol) 650 mg PRN Q4HRS PRN PO FEVER; Start 04/13/17 at 01:30; Stop 04/14/17 at 01:29; Status DC Insulin Aspart (NovoLOG) 0-5 UNITS TIDWMEALS SQ Last administered on 04/13/17 12:55; Start 04/13/17 at 08:00; Stop 04/13/17 at 17:00; Status DC Dextrose (Dextrose 50%-Water Syringe) 12.5 gm PRN Q15MIN PRN IV SEE COMMENTS; Start 04/13/17 at 02:00; Stop 04/13/17 at 16:22; Status DC Acetaminophen (Tylenol) 650 mg PRN Q8HRS PRN PO PAIN; Start 04/13/17 at 09:45; Stop 04/14/17 at 11:43; Status DC Acetaminophen/ Codeine Phosphate (Tylenol #3) 1 tab PRN Q4HRS PRN PO PAIN Last administered on 04/15/17 15:13; Start 04/13/17 at 09:45 Baclofen (Lioresal) 10 mg QID PO Last administered on 04/16/17 08:05; Start 04/13/17 at 13:00 Cyanocobalamin (Vitamin B-12) 1,000 mcg QMONTH IM ; Start 04/27/17 at 09:00 Famotidine (Pepcid) 20 mg HS PO Last administered on 04/15/17 21:54; Start 04/13 at 21:00 Furosemide (Lasix) 20 mg DAILY PO Last administered on 04/13/17 12:35; Start at 10:00; Stop 04/13/17 at 14:46; Status DC Gabapentin (Neurontin) 100 mg BID PO Last administered on 04/16/17 08:06; Start 04/13/17 at 10:00 Insulin Aspart (NovoLOG) 7 units TIDBFRMEAL SQ Last administered on 04/16/17 08 :11; Start 04/13/17 at 11:30 Albuterol/ Ipratropium (Duoneb) 3 ml [id number] IH Last administered on 04/16/17 07 :39; Start 04/13/17 at 10:00 Al Hydroxide/Mg Hydroxide (Mylanta Plus Xs) 30 ml PRN DAILY PRN PO CONSTIPATION ; Start 04/13/17 at 09:45 Magnesium Hydroxide (Milk Of Magnesia) 2,400 mg PRN DAILY PRN PO CONSTIPATION; Start 04/13/17 at 09:45 Metformin HCl (Glucophage) 850 mg BIDWMEALS PO Last administered on 04/16/17 08 :06; Start 04/15/17 at 08:00 Senna/Docusate Sodium (Senna Plus) 1 tab BID PO Last administered on 04/16/17 08:05; Start 04/13/17 at 10:00 Sucralfate (Carafate) 1 gm TIDAC PO Last administered on 04/16/17 08:05; Start 04/13/17 at 11:30 Cyclobenzaprine HCl (Flexeril) 5 mg BID PO Last administered on 04/16/17 08:06 ; Start 04/13/17 at 10:15 Artificial Tears (Artificial Tears) 1 drop QID OU Last administered on 13:29; Start 04/13/17 at 10:15; Stop 04/15/17 at 16:40; Status DC Escitalopram Oxalate (Lexapro) 20 mg DAILY PO Last administered on 04/13/17 12: 39; Start 04/13/17 at 11:00; Stop 04/14/17 at 09:55; Status DC Fluticasone Propionate (Flonase) 2 spray DAILY NS ; Start 04/13/17 at 10:00; Stop 04/13/17 at 10:30; Status DC Folic Acid (Folic Acid) 1 mg DAILY PO Last administered on 04/16/17 08:05; Start 04/13/17 at 10:00 Non-Formulary Medication 1 mg PRN PRN IJ [id number]; Start 04/13/17 at 09:45; Status Cancel Multivitamins (Thera M Plus) 1 tab DAILY PO Last administered on 04/16/17 08:05 ; Start 04/13/17 at 10:00 Potassium Chloride (Klor-Con) 10 meq [id number] PO Last administered on 08:05; Start 04/13/17 at 10:00 Insulin Aspart (NovoLOG) 0-7 UNITS TIDWMEALS SQ Last administered on 04/16/17 08:12; Start 04/13/17 at 12:00 Dextrose (Dextrose 50%-Water Syringe) 12.5 gm PRN Q15MIN PRN IV SEE COMMENTS; Start 04/13/17 at 10:00 Enoxaparin Sodium (Lovenox 40mg Syringe) 40 mg Q24H SQ ; Start 04/13/17 at 10:00 ; Stop 04/13/17 at 14:46; Status DC Fluticasone Propionate (Flonase) 2 spray DAILY NS Last administered on 08:04; Start 04/13/17 at 11:00 Escitalopram Oxalate (Lexapro) 20 mg DAILY PO Last administered on 04/16/17 08: 05; Start 04/14/17 at 10:00 Acetaminophen (Tylenol) 650 mg PRN Q4HRS PRN PO pain, fever Last administered on 04/14/17 12:29; Start 04/14/17 at 11:45 Piperacillin Sod/ Tazobactam Sod 3.375 gm/Sodium Chloride 50 ml @ 100 mls/hr Q6HRS IV Last administered on 04/16/17 05:48; Start 04/15/17 at 12:00 Glucagon (Glucagen) 1 mg PRN 1X PRN IM HYPOGLYCEMIA; Start 04/15/17 at 15:15 Artificial Tears (Artificial Tears) 1 drop QID OU Last administered on 08:04; Start 04/15/17 at 16:40 Active Scripts Active Reported Tylenol With Codeine #3 Tablet (Acetaminophen/Codeine Phosphate) 1 Each Tablet 1 Tab PO PRN Q4HRS PRN Artificial Tears Eye Drops (Dextran 70/Hypromellose) 15 Ml Drops 1 Drop EACHEYE QID Lexapro (Escitalopram Oxalate) 20 Mg Tablet 1 Tab PO DAILY Famotidine 20 Mg Tablet 20 Mg PO HS Metformin Hcl 850 Mg Tablet 850 Mg PO BIDWMEALS Linzess (Linaclotide) 72 Mcg Capsule 145 Mcg PO Potassium Chloride 10 Meq Capsule.er 10 Meq PO DAILY Flonase Allergy Relief (Fluticasone Propionate) 9.9 Ml [place].susp 2 Sprays NS DAILY Glucagen (Glucagon,Human Recombinant) 1 Mg Vial 1 Mg IJ PRN PRN Milk Of Magnesia (Magnesium Hydroxide) 400 Mg/5 Ml Oral.susp 30 Ml PO DAILY PRN Mi Acid Suspension (Mag Hydrox/Al Hydrox/Simeth) 355 Ml Oral.susp 30 Ml PO DAILY PRN Loperamide (Loperamide Hcl) 2 Mg Capsule 2 Mg PO PRN PRN Acetaminophen 325 Mg Tablet 2 Tab PO Q8HRS PRN Sucralfate 1 Gm Tablet 1 Tab PO TID Senna Plus Tablet (Sennosides/Docusate Sodium) 1 Each Tablet 1 Each PO BID Cyanocobalamin Injection (Cyanocobalamin (Vitamin B-12)) 1,000 Mcg/1 Ml Vial 1 Ml IM QMONTH Baclofen 10 Mg Tablet 10 Mg PO QID Novolog Flexpen (Insulin Aspart) 100 Unit/1 Ml Insuln.pen 7 Unit SQ TIDBFRMEAL Duoneb 0.5 Mg-3 Mg/3 Ml Soln (Ipratropium/Albuterol Sulfate) 3 Ml Ampul.neb 3 Ml IH [id number] Multi Vitamin Daily (Multivitamin) 1 Each Tablet 1 Each PO DAILY Gabapentin 100 Mg Capsule 100 Mg PO BID Lasix (Furosemide) 20 Mg Tablet 20 Mg PO DAILY Folic Acid 20 Mg Capsule 1 Mg PO DAILY Cyclobenzaprine Hcl 5 Mg Tablet 5 Mg PO BID Vitals/I & O Vital Sign - Last 24 Hours 04/15/17 04/15/17 04/15/17 04/15/17 09:41 10:02 11:02 11:10 Temp 100.8 99.9 98.1 98.1 100.8 99.9 98.1 98.1 Pulse 91 77 75 75 Resp 18 16 19 19 B/P (MAP) 114/41 122/53 115/50 115/50 (71) Pulse Ox 96 O2 Delivery Nasal Cannula O2 Flow Rate 2.0 04/15/17 04/15/17 04/15/17 04/15/17 11:14 12:02 13:47 14:03 Temp 99.0 99.7 99.0 99.0 99.7 99.0 Pulse 82 77 77 Resp 18 18 18 B/P (MAP) 123/49 131/46 128/42 Pulse Ox 93 O2 Delivery Nasal Cannula O2 Flow Rate 2.0 04/15/17 04/15/17 04/15/17 04/15/17 14:39 15:05 15:13 16:00 Temp 99.1 98.9 99.0 99.1 98.9 99.0 Pulse 75 76 78 Resp 18 19 18 B/P (MAP) 118/52 118/52 (74) 122/54 Pulse Ox 96 96 O2 Delivery Nasal Cannula Nasal Cannula O2 Flow Rate 2.0 2.0 04/15/17 04/15/17 04/15/17 04/15/17 16:13 19:00 19:25 20:05 Temp 97.7 97.7 Pulse 69 Resp 18 B/P (MAP) 127/43 (71) Pulse Ox 96 98 97 O2 Delivery Nasal Cannula Nasal Cannula Nasal Cannula Nasal Cannula O2 Flow Rate 2.0 2.0 4.0 4.0 04/15/17 04/16/17 04/16/17 04/16/17 23:00 03:00 07:27 07:39 Temp 98.6 97.9 98.4 98.6 97.9 98.4 Pulse 70 71 67 Resp 20 18 18 B/P (MAP) 120/51 (74) 119/42 (67) 102/35 (57) Pulse Ox 96 97 96 95 O2 Delivery Nasal Cannula Nasal Cannula Nasal Cannula Nasal Cannula O2 Flow Rate 2.0 2.0 2.0 2.0 Intake and Output 04/15/17 04/15/17 04/16/17 15:00 23:00 07:00 Intake Total 905 ml 2700 ml 175 ml Output Total 1 ml Balance 905 ml 2699 ml 175 ml NILESH BRYAN MD Apr 16, 2017 09:33
[2017-04-16 10:32] VITALS: BP 120/46
--- NOTE | 2017-04-16 13:08 | PN ---
PROGRESS NOTES Subjective Subjective resting comfortably eating her lunch continues to c/o pain in the RUQ and right shoulder that is less severe Her H&H is up after 2 units of PRBCS given ysterday Objective Objective Vital Signs Date Time Temp Pulse Resp B/P (MAP) Pulse Ox O2 Delivery O2 Flow Rate FiO2 04/16/17 11:41 95 Nasal Cannula 2.0 04/16/17 10:32 99.3 72 16 120/46 (70) 99.3 Intake and Output 04/16/17 07:00 Intake Total 3780 ml Output Total 1 ml Balance 3779 ml Intake Oral 2875 ml Blood Product IV Normal Saline Flush 905 ml Stool Total 1 ml # Voids 4 Physical Exam Physical Exam Pale amd mildly jaundiced Generalized anasarca AFEBRILE HEMODYNAMICALLY STABLE COMMENT 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 No cold or warm antibodies detected Diagnosis DIAGNOSIS Urinary tract infectiom growing E Coli sensitive to Zosyn Acute hemolysis requiring 4 units ogf PRBCS likely induced by infection given that no cold or warm antibodies detected PROBLEM LIST Problems Medical Problems: (1) Abdominal pain Status: Acute (2) Leukocytosis Status: Acute (3) Urinary tract infection Status: Acute Assessment Assessment Problems Medical Problems: (1) Abdominal pain Status: Acute (2) Leukocytosis Status: Acute (3) Urinary tract infection Status: Acute Plan Plan of Care To continue I V Antibiotics Monitor H&H and transfuse as needed Comment Labs Laboratory Tests Test 04/14/17 16:36 04/14/17 21:11 04/15/17 05:05 04/15/17 07:20 Glucose (Fingerstick) 294 mg/dL (70-99) 209 mg/dL (70-99) 203 mg/dL (70-99) White Blood Count 9.5 x10^3/uL (4.0-11.0) Red Blood Count 2.33 x10^6/uL (3.50-5.40) Hemoglobin 6.6 g/dL (12.0-15.5) Hematocrit 18.1 % (36.0-47.0) Mean Corpuscular Volume 78 fL (79-100) Mean Corpuscular Hemoglobin 28 pg (25-35) Mean Corpuscular Hemoglobin Concent 37 g/dL (31-37) Red Cell Distribution Width 22.2 % (11.5-14.5) Platelet Count 94 x10^3/uL (140-400) Sodium Level 143 mmol/L (136-145) Potassium Level 3.9 mmol/L (3.5-5.1) Chloride Level 106 mmol/L (98-107) Carbon Dioxide Level 28 mmol/L (21-32) Anion Gap 9 (6-14) Blood Urea Nitrogen 26 mg/dL (7-20) Creatinine 0.9 mg/dL (0.6-1.0) Estimated GFR (Cockcroft-Gault) 66.5 Glucose Level 176 mg/dL (70-99) Calcium Level 8.2 mg/dL (8.5-10.1) Test 04/15/17 11:24 04/15/17 16:38 04/15/17 20:42 04/16/17 05:50 Glucose (Fingerstick) 186 mg/dL (70-99) 258 mg/dL (70-99) 168 mg/dL (70-99) White Blood Count 8.5 x10^3/uL (4.0-11.0) Red Blood Count 3.01 x10^6/uL (3.50-5.40) Hemoglobin 8.5 g/dL (12.0-15.5) Hematocrit 24.2 % (36.0-47.0) Mean Corpuscular Volume 81 fL (79-100) Mean Corpuscular Hemoglobin 28 pg (25-35) Mean Corpuscular Hemoglobin Concent 35 g/dL (31-37) Red Cell Distribution Width 20.7 % (11.5-14.5) Platelet Count 93 x10^3/uL (140-400) Prothrombin Time 13.9 SEC (11.7-14.0) Prothromb Time International Ratio 1.1 (0.8-1.1) Sodium Level 140 mmol/L (136-145) Potassium Level 3.8 mmol/L (3.5-5.1) Chloride Level 104 mmol/L (98-107) Carbon Dioxide Level 26 mmol/L (21-32) Anion Gap 10 (6-14) Blood Urea Nitrogen 22 mg/dL (7-20) Creatinine 0.9 mg/dL (0.6-1.0) Estimated GFR (Cockcroft-Gault) 66.5 BUN/Creatinine Ratio 24 (6-20) Glucose Level 165 mg/dL (70-99) Calcium Level 9.0 mg/dL (8.5-10.1) Total Bilirubin 2.9 mg/dL (0.2-1.0) Aspartate Amino Transf (AST/SGOT) 11 U/L (15-37) Alanine Aminotransferase (ALT/SGPT) 10 U/L (14-59) Alkaline Phosphatase 79 U/L (46-116) Lactate Dehydrogenase 202 U/L (81-234) Total Protein 6.7 g/dL (6.4-8.2) Albumin 3.1 g/dL (3.4-5.0) Albumin/Globulin Ratio 0.9 (1.0-1.7) Test 04/16/17 07:21 04/16/17 11:17 Glucose (Fingerstick) 184 mg/dL (70-99) 211 mg/dL (70-99) Laboratory Tests Test 04/15/17 16:38 04/15/17 20:42 04/16/17 05:50 04/16/17 07:21 Glucose (Fingerstick) 258 mg/dL (70-99) 168 mg/dL (70-99) 184 mg/dL (70-99) White Blood Count 8.5 x10^3/uL (4.0-11.0) Red Blood Count 3.01 x10^6/uL (3.50-5.40) Hemoglobin 8.5 g/dL (12.0-15.5) Hematocrit 24.2 % (36.0-47.0) Mean Corpuscular Volume 81 fL (79-100) Mean Corpuscular Hemoglobin 28 pg (25-35) Mean Corpuscular Hemoglobin Concent 35 g/dL (31-37) Red Cell Distribution Width 20.7 % (11.5-14.5) Platelet Count 93 x10^3/uL (140-400) Prothrombin Time 13.9 SEC (11.7-14.0) Prothromb Time International Ratio 1.1 (0.8-1.1) Sodium Level 140 mmol/L (136-145) Potassium Level 3.8 mmol/L (3.5-5.1) Chloride Level 104 mmol/L (98-107) Carbon Dioxide Level 26 mmol/L (21-32) Anion Gap 10 (6-14) Blood Urea Nitrogen 22 mg/dL (7-20) Creatinine 0.9 mg/dL (0.6-1.0) Estimated GFR (Cockcroft-Gault) 66.5 BUN/Creatinine Ratio 24 (6-20) Glucose Level 165 mg/dL (70-99) Calcium Level 9.0 mg/dL (8.5-10.1) Total Bilirubin 2.9 mg/dL (0.2-1.0) Aspartate Amino Transf (AST/SGOT) 11 U/L (15-37) Alanine Aminotransferase (ALT/SGPT) 10 U/L (14-59) Alkaline Phosphatase 79 U/L (46-116) Lactate Dehydrogenase 202 U/L (81-234) Total Protein 6.7 g/dL (6.4-8.2) Albumin 3.1 g/dL (3.4-5.0) Albumin/Globulin Ratio 0.9 (1.0-1.7) Test 04/16/17 11:17 Glucose (Fingerstick) 211 mg/dL (70-99) Microbiology 04/13/17 Blood Culture - Preliminary, Resulted NO GROWTH AFTER 3 DAYS 04/13/17 Urine Culture - Final, Complete 04/13/17 Urine Culture Result 1 (CÉSAR) - Final, Complete 04/13/17 Antimicrobic Susceptibility - Final, Complete Medications Current Medications Fentanyl Citrate (Fentanyl 2ml Vial) 25 mcg PRN Q15MIN PRN IV PAIN GREATER THAN 3/10 Last administered on 04/12/17 23:33; Start 04/12/17 at 23:15; Stop 04/13 at 03:00; Status DC Ondansetron HCl (Zofran) 4 mg 1X ONCE IV Last administered on 04/12/17 23:33; Start 04/12/17 at 23:30; Stop 04/12/17 at 23:31; Status DC Iohexol (Omnipaque 300 Mg/ml) 75 ml 1X ONCE IV Last administered on 04/13/17 00:09; Start 04/12/17 at 23:45; Stop 04/12/17 at 23:46; Status DC Info (Do NOT chart on this entry -- for MONITORING) 1 each PRN DAILY PRN MC SEE COMMENTS; Start 04/12/17 at 23:45; Stop 04/14/17 at 23:44; Status DC Ceftriaxone Sodium 1 gm/ Sodium Chloride 50 ml @ 100 mls/hr Q24H IV Last administered on 04/14/17 23:19; Start 04/13/17 at 23:00; Stop 04/15/17 at 08:17; Status DC Ceftriaxone Sodium 50 ml @ 100 mls/hr 1X ONCE IV Last administered on 01:38; Start 04/13/17 at 01:30; Stop 04/13/17 at 01:59; Status DC Ondansetron HCl (Zofran) 4 mg PRN Q8HRS PRN IV NAUSEA/VOMITING; Start 04/13/17 at 01:30; Stop 04/14/17 at 01:29; Status DC Fentanyl Citrate (Fentanyl 2ml Vial) 50 mcg PRN Q2HR PRN IV SEVERE PAIN Last administered on 04/13/17 03:23; Start 04/13/17 at 01:30; Stop 04/14/17 at 01:29; Status DC Acetaminophen (Tylenol) 650 mg PRN Q4HRS PRN PO FEVER; Start 04/13/17 at 01:30; Stop 04/14/17 at 01:29; Status DC Insulin Aspart (NovoLOG) 0-5 UNITS TIDWMEALS SQ Last administered on 04/13/17 12:55; Start 04/13/17 at 08:00; Stop 04/13/17 at 17:00; Status DC Dextrose (Dextrose 50%-Water Syringe) 12.5 gm PRN Q15MIN PRN IV SEE COMMENTS; Start 04/13/17 at 02:00; Stop 04/13/17 at 16:22; Status DC Acetaminophen (Tylenol) 650 mg PRN Q8HRS PRN PO PAIN; Start 04/13/17 at 09:45; Stop 04/14/17 at 11:43; Status DC Acetaminophen/ Codeine Phosphate (Tylenol #3) 1 tab PRN Q4HRS PRN PO PAIN Last administered on 04/15/17 15:13; Start 04/13/17 at 09:45 Baclofen (Lioresal) 10 mg QID PO Last administered on 04/16/17 11:52; Start 04/13/17 at 13:00 Cyanocobalamin (Vitamin B-12) 1,000 mcg QMONTH IM ; Start 04/27/17 at 09:00 Famotidine (Pepcid) 20 mg HS PO Last administered on 04/15/17 21:54; Start 04/13 at 21:00 Furosemide (Lasix) 20 mg DAILY PO Last administered on 04/13/17 12:35; Start at 10:00; Stop 04/13/17 at 14:46; Status DC Gabapentin (Neurontin) 100 mg BID PO Last administered on 04/16/17 08:06; Start 04/13/17 at 10:00 Insulin Aspart (NovoLOG) 7 units TIDBFRMEAL SQ Last administered on 04/16/17 11 :59; Start 04/13/17 at 11:30 Albuterol/ Ipratropium (Duoneb) 3 ml [id number] IH Last administered on 04/16/17 11 :41; Start 04/13/17 at 10:00 Al Hydroxide/Mg Hydroxide (Mylanta Plus Xs) 30 ml PRN DAILY PRN PO CONSTIPATION ; Start 04/13/17 at 09:45 Magnesium Hydroxide (Milk Of Magnesia) 2,400 mg PRN DAILY PRN PO CONSTIPATION; Start 04/13/17 at 09:45 Metformin HCl (Glucophage) 850 mg BIDWMEALS PO Last administered on 04/16/17 08 :06; Start 04/15/17 at 08:00 Senna/Docusate Sodium (Senna Plus) 1 tab BID PO Last administered on 04/16/17 08:05; Start 04/13/17 at 10:00 Sucralfate (Carafate) 1 gm TIDAC PO Last administered on 04/16/17 11:52; Start 04/13/17 at 11:30 Cyclobenzaprine HCl (Flexeril) 5 mg BID PO Last administered on 04/16/17 08:06 ; Start 04/13/17 at 10:15 Artificial Tears (Artificial Tears) 1 drop QID OU Last administered on 13:29; Start 04/13/17 at 10:15; Stop 04/15/17 at 16:40; Status DC Escitalopram Oxalate (Lexapro) 20 mg DAILY PO Last administered on 04/13/17 12: 39; Start 04/13/17 at 11:00; Stop 04/14/17 at 09:55; Status DC Fluticasone Propionate (Flonase) 2 spray DAILY NS ; Start 04/13/17 at 10:00; Stop 04/13/17 at 10:30; Status DC Folic Acid (Folic Acid) 1 mg DAILY PO Last administered on 04/16/17 08:05; Start 04/13/17 at 10:00 Non-Formulary Medication 1 mg PRN PRN IJ HYPOGLYCEMIA; Start 04/13/17 at 09:45; Status Cancel Multivitamins (Thera M Plus) 1 tab DAILY PO Last administered on 04/16/17 08:05 ; Start 04/13/17 at 10:00 Potassium Chloride (Klor-Con) 10 meq [id number] PO Last administered on 08:05; Start 04/13/17 at 10:00 Insulin Aspart (NovoLOG) 0-7 UNITS TIDWMEALS SQ Last administered on 04/16/17 12:00; Start 04/13/17 at 12:00 Dextrose (Dextrose 50%-Water Syringe) 12.5 gm PRN Q15MIN PRN IV SEE COMMENTS; Start 04/13/17 at 10:00 Enoxaparin Sodium (Lovenox 40mg Syringe) 40 mg Q24H SQ ; Start 04/13/17 at 10:00 ; Stop 04/13/17 at 14:46; Status DC Fluticasone Propionate (Flonase) 2 spray DAILY NS Last administered on 08:04; Start 04/13/17 at 11:00 Escitalopram Oxalate (Lexapro) 20 mg DAILY PO Last administered on 04/16/17 08: 05; Start 04/14/17 at 10:00 Acetaminophen (Tylenol) 650 mg PRN Q4HRS PRN PO pain, fever Last administered on 04/14/17 12:29; Start 04/14/17 at 11:45 Piperacillin Sod/ Tazobactam Sod 3.375 gm/Sodium Chloride 50 ml @ 100 mls/hr Q6HRS IV Last administered on 04/16/17 11:53; Start 04/15/17 at 12:00 Glucagon (Glucagen) 1 mg PRN 1X PRN IM HYPOGLYCEMIA; Start 04/15/17 at 15:15 Artificial Tears (Artificial Tears) 1 drop QID OU Last administered on t 11:52; Start 04/15/17 at 16:40 Active Scripts Active Reported Tylenol With Codeine #3 Tablet (Acetaminophen/Codeine Phosphate) 1 Each Tablet 1 Tab PO PRN Q4HRS PRN Artificial Tears Eye Drops (Dextran 70/Hypromellose) 15 Ml Drops 1 Drop EACHEYE QID Lexapro (Escitalopram Oxalate) 20 Mg Tablet 1 Tab PO DAILY Famotidine 20 Mg Tablet 20 Mg PO HS Metformin Hcl 850 Mg Tablet 850 Mg PO BIDWMEALS Linzess (Linaclotide) 72 Mcg Capsule 145 Mcg PO Potassium Chloride 10 Meq Capsule.er 10 Meq PO DAILY Flonase Allergy Relief (Fluticasone Propionate) 9.9 Ml [place].susp 2 Sprays NS DAILY Glucagen (Glucagon,Human Recombinant) 1 Mg Vial 1 Mg IJ PRN PRN Milk Of Magnesia (Magnesium Hydroxide) 400 Mg/5 Ml Oral.susp 30 Ml PO DAILY PRN Mi Acid Suspension (Mag Hydrox/Al Hydrox/Simeth) 355 Ml Oral.susp 30 Ml PO DAILY PRN Loperamide (Loperamide Hcl) 2 Mg Capsule 2 Mg PO PRN PRN Acetaminophen 325 Mg Tablet 2 Tab PO Q8HRS PRN Sucralfate 1 Gm Tablet 1 Tab PO TID Senna Plus Tablet (Sennosides/Docusate Sodium) 1 Each Tablet 1 Each PO BID Cyanocobalamin Injection (Cyanocobalamin (Vitamin B-12)) 1,000 Mcg/1 Ml Vial 1 Ml IM QMONTH Baclofen 10 Mg Tablet 10 Mg PO QID Novolog Flexpen (Insulin Aspart) 100 Unit/1 Ml Insuln.pen 7 Unit SQ TIDBFRMEAL Duoneb 0.5 Mg-3 Mg/3 Ml Soln (Ipratropium/Albuterol Sulfate) 3 Ml Ampul.neb 3 Ml IH [id number] Multi Vitamin Daily (Multivitamin) 1 Each Tablet 1 Each PO DAILY Gabapentin 100 Mg Capsule 100 Mg PO BID Lasix (Furosemide) 20 Mg Tablet 20 Mg PO DAILY Folic Acid 20 Mg Capsule 1 Mg PO DAILY Cyclobenzaprine Hcl 5 Mg Tablet 5 Mg PO BID Vitals/I & O Vital Sign - Last 24 Hours 04/15/17 04/15/17 04/15/17 04/15/17 13:47 14:03 14:39 15:05 Temp 99.7 99.0 99.1 98.9 99.7 99.0 99.1 98.9 Pulse 77 77 75 76 Resp 18 18 18 19 B/P (MAP) 131/46 128/42 118/52 118/52 (74) Pulse Ox 96 O2 Delivery Nasal Cannula O2 Flow Rate 2.0 04/15/17 04/15/17 04/15/17 04/15/17 15:13 16:00 16:13 19:00 Temp 99.0 97.7 99.0 97.7 Pulse 78 69 Resp 18 16 18 B/P (MAP) 122/54 127/43 (71) Pulse Ox 96 96 98 O2 Delivery Nasal Cannula Nasal Cannula Nasal Cannula O2 Flow Rate 2.0 2.0 2.0 04/15/17 04/15/17 04/15/17 04/16/17 19:25 20:05 23:00 03:00 Temp 98.6 97.9 98.6 97.9 Pulse 70 71 Resp 20 18 B/P (MAP) 120/51 (74) 119/42 (67) Pulse Ox 97 96 97 O2 Delivery Nasal Cannula Nasal Cannula Nasal Cannula Nasal Cannula O2 Flow Rate 4.0 4.0 2.0 2.0 04/16/17 04/16/17 04/16/17 04/16/17 07:27 07:39 08:00 10:32 Temp 98.4 99.3 98.4 99.3 Pulse 67 72 Resp 18 16 B/P (MAP) 102/35 (57) 120/46 (70) Pulse Ox 96 95 95 O2 Delivery Nasal Cannula Nasal Cannula Nasal Cannula Nasal Cannula O2 Flow Rate 2.0 2.0 2.0 2.0 04/16/17 11:41 Pulse Ox 95 O2 Delivery Nasal Cannula O2 Flow Rate 2.0 Intake and Output 04/15/17 04/15/17 04/16/17 15:00 23:00 07:00 Intake Total 905 ml 2700 ml 175 ml Output Total 1 ml Balance 905 ml 2699 ml 175 ml USMAN BRAUN MD Apr 16, 2017 13:08
[2017-04-16 14:37] VITALS: BP 118/40
[2017-04-16 19:00] VITALS: BP 125/48
[2017-04-16] MEDS: FAMOTIDINE 20 MG TABLET. PO SCH (20:38)
[2017-04-16] MEDS: ACETAMINOPHEN/CODEINE 300/30MG TABLET. PO PRN (20:41)
[2017-04-16 23:00] VITALS: BP 120/51
[2017-04-17] MEDS: PIPERACILLIN/TAZOBACTAM 3.375 GM in IV NORMAL SALINE 50ML 50 ML IV SCH ×4 (00:21→17:39)
[2017-04-17 03:00] VITALS: BP 114/50
[2017-04-17 04:55] LABS: HEMATOCRIT 22.9 % (36.0-47.0); RED BLOOD COUNT 2.85 x10^6/uL (3.50-5.40); RED CELL DISTRIBUTION WIDTH 21.1 % (11.5-14.5); WHITE BLOOD COUNT 6.3 x10^3/uL (4.0-11.0)
[2017-04-17 05:14] LABS: ALBUMIN 3.2 g/dL (3.4-5.0); ALBUMIN/GLOBULIN RATIO 0.9 (1.0-1.7); CALCIUM 8.4 mg/dL (8.5-10.1); GFR 58.9; POTASSIUM 3.9 mmol/L (3.5-5.1); TOTAL BILIRUBIN 1.6 mg/dL (0.2-1.0); TOTAL PROTEIN 6.6 g/dL (6.4-8.2)
[2017-04-17 07:37] VITALS: BP 118/47
[2017-04-17] MEDS: IPRATRPIUM/ALBUTEROL 0.5/2.5MG 3 ML NEBU. IH SCH ×3 (07:48→20:14)
[2017-04-17] MEDS: FLUTICASONE 50MCG/NASAL SPRAY 16GM BOTTLE. NS SCH (08:29)
[2017-04-17] MEDS: ESCITALOPRAM 5 MG TABLET. PO SCH (08:29)
[2017-04-17] MEDS: CYCLOBENZAPRINE 10 MG TABLET. PO SCH ×2 (08:30→21:28)
[2017-04-17] MEDS: SUCRALFATE 1 GM TABLET. PO SCH ×3 (08:30→17:38)
[2017-04-17] MEDS: BACLOFEN 10 MG TABLET. PO SCH ×4 (08:30→21:29)
--- NOTE | 2017-04-17 08:30 | PDOC ---
Infectious Disease Note Subjective Subjective Better yet ROS ROS GEN: Denies fevers, chills, sweats HEENT: Denies blurred vision, sore throat CV: Denies chest pain RESP: Denies shortness of air, cough GI: Denies n/v/d NEURO: Denies confusion, dizziness MSK: Denies weakness, joint pain/swelling Vital Sign Vital Signs Vital Signs Date Time Temp Pulse Resp B/P (MAP) Pulse Ox O2 Delivery O2 Flow Rate FiO2 04/17/17 07:54 94 Nasal Cannula 1.0 04/17/17 07:37 98.4 63 16 118/47 (70) 98.4 Physical Exam PHYSICAL EXAM GENERAL: NAD, Alert, coop. Eating HEENT: PERRL, OC/OP- clear NECK: Supple, no JVD, no LN LUNGS: Clear. on 02 HEART: S1S2, no gallop, no murmur ABD: Soft, NT, no organomegaly, no rebound, obeses EXT: trace edema, no cyanosis COB SAWYER: Alert, oriented x 3, no focal neurologic deficit SKIN: No rash IV: ok Labs Lab Laboratory Tests Test 04/16/17 11:17 04/16/17 17:12 04/16/17 20:34 04/17/17 03:05 Glucose (Fingerstick) 211 mg/dL (70-99) 229 mg/dL (70-99) 175 mg/dL (70-99) White Blood Count 6.3 x10^3/uL (4.0-11.0) Red Blood Count 2.85 x10^6/uL (3.50-5.40) Hemoglobin 8.0 g/dL (12.0-15.5) Hematocrit 22.9 % (36.0-47.0) Mean Corpuscular Volume 80 fL (79-100) Mean Corpuscular Hemoglobin 28 pg (25-35) Mean Corpuscular Hemoglobin Concent 35 g/dL (31-37) Red Cell Distribution Width 21.1 % (11.5-14.5) Platelet Count 94 x10^3/uL (140-400) Sodium Level 142 mmol/L (136-145) Potassium Level 3.9 mmol/L (3.5-5.1) Chloride Level 106 mmol/L (98-107) Carbon Dioxide Level 28 mmol/L (21-32) Anion Gap 8 (6-14) Blood Urea Nitrogen 23 mg/dL (7-20) Creatinine 1.0 mg/dL (0.6-1.0) Estimated GFR (Cockcroft-Gault) 58.9 BUN/Creatinine Ratio 23 (6-20) Glucose Level 115 mg/dL (70-99) Calcium Level 8.4 mg/dL (8.5-10.1) Total Bilirubin 1.6 mg/dL (0.2-1.0) Aspartate Amino Transf (AST/SGOT) 10 U/L (15-37) Alanine Aminotransferase (ALT/SGPT) 11 U/L (14-59) Alkaline Phosphatase 68 U/L (46-116) Total Protein 6.6 g/dL (6.4-8.2) Albumin 3.2 g/dL (3.4-5.0) Albumin/Globulin Ratio 0.9 (1.0-1.7) Test 04/17/17 07:40 Glucose (Fingerstick) 181 mg/dL (70-99) Micro 04/13 Escherichia coli Greater than 100,000 colony forming units per mL ANTIMICROBIAL SUSCEPTIBILITY Final Comment S = Susceptible; I = Intermediate; R = Resistant P = Positive; N = Negative MICS are expressed in micrograms per mL Antibiotic RSLT#1 RSLT#2 RSLT#3 RSLT#4 Amoxicillin/Clavulanic Acid S Ampicillin R Cefepime S Ceftriaxone S Cefuroxime S Cephalothin I Ciprofloxacin R Ertapenem S Gentamicin S Imipenem S Levofloxacin R Nitrofurantoin S Piperacillin S Tetracycline R Tobramycin S Trimethoprim/Sulfa R Objective Assessment abd pain - better uti - Ecoli 04/13 dm anemia - better hereditiory spherocytosis esteban wbc possible sepsis due to UTI h/o cervical stenosis with paraplegia obesity possible aspiration Plan Plan of Care Cont zosyn (04/15) for now F/u labs/response VALE HORNER MD Apr 17, 2017 08:30
[2017-04-17] MEDS: FOLIC ACID 1 MG TABLET. PO SCH (08:31)
[2017-04-17] MEDS: SENNOSIDES/DOCUSATE 8.6/50MG TABLET. PO SCH ×2 (08:31→21:29)
[2017-04-17] MEDS: MULTIVITAMIN with MINERAL TABLET. PO SCH (08:31)
[2017-04-17] MEDS: GABAPENTIN 100 MG CAPSULE. PO SCH ×2 (08:31→21:29)
[2017-04-17] MEDS: POLYVINYL ALCOHOL 1.4% OPHTH SOLUTION 15ML BOTTLE. OU SCH ×4 (08:31→21:28)
[2017-04-17] MEDS: POTASSIUM CHLORIDE 10 MEQ TABLET.ER. PO SCH (08:31)
[2017-04-17] MEDS: metFORMIN 850 MG TABLET PO SCH ×2 (08:31→17:38)
[2017-04-17] MEDS: INSULIN ASPART 300 UNITS/3 ML INSULN.PEN SQ SCH ×6 (08:53→17:00)
[2017-04-17 10:30] VITALS: BP 115/47
--- NOTE | 2017-04-17 12:30 | PDOC ---
PROGRESS NOTES Subjective Subjective c/c - f/u of anemia Objective Objective Vital Signs Date Time Temp Pulse Resp B/P (MAP) Pulse Ox O2 Delivery O2 Flow Rate FiO2 04/17/17 10:30 99.1 65 18 115/47 (69) 96 Nasal Cannula 2.0 99.1 Intake and Output 04/17/17 07:00 Intake Total 120 ml Balance 120 ml Intake Oral 120 ml # Voids 4 # Bowel Movements 3 Physical Exam Heart: Normal S1, Normal S2 General: Alert Lungs: Clear to auscultation Assessment Assessment Problems Medical Problems: (1) Abdominal pain Status: Acute (2) Leukocytosis Status: Acute (3) Urinary tract infection Status: Acute IMPRESSION AND PLAN: 1. Acute anemia. The patient has drop in hemoglobin from 9.0 to 6.8. She has mild hemolysis suggested by elevated retic and decreased haptoglobin and her LDH level is normal. I will continue to monitor hemoglobin and transfuse as needed. I will continue to monitor the hemoglobin and I would recommend transfusion as needed. I suspect the underlying urinary tract infection has led to worsening hemoglobin levels and it should improve over time. I reviewed all the old records. She does not seem to have problems with severe hemolysis and the hemoglobin gets worse whenever she has an infection. If hemolysis becomes an ongoing problem in the future then splenectomy can be considered however she would be at higher risk because of her poor functional status and her comorbidities. Hb 8.0, s/p transfusion of 4 units PRBC. Monitor Hb and transfuse as needed. I d/w RN. 2. Leukocytosis, reactive. Monitor 3. Thrombocytopenia with platelet count of 94,000. this is suggestive of reactive thrombocytopenia, probably from an underlying infection. I will continue to monitor PRN. 4. History of hereditary spherocytosis. Comment Review of Relevant I have reviewed the following items shira (where applicable) has been applied. Labs Laboratory Tests Test 04/15/17 16:38 04/15/17 20:42 04/16/17 05:50 04/16/17 07:21 Glucose (Fingerstick) 258 mg/dL (70-99) 168 mg/dL (70-99) 184 mg/dL (70-99) White Blood Count 8.5 x10^3/uL (4.0-11.0) Red Blood Count 3.01 x10^6/uL (3.50-5.40) Hemoglobin 8.5 g/dL (12.0-15.5) Hematocrit 24.2 % (36.0-47.0) Mean Corpuscular Volume 81 fL (79-100) Mean Corpuscular Hemoglobin 28 pg (25-35) Mean Corpuscular Hemoglobin Concent 35 g/dL (31-37) Red Cell Distribution Width 20.7 % (11.5-14.5) Platelet Count 93 x10^3/uL (140-400) Prothrombin Time 13.9 SEC (11.7-14.0) Prothromb Time International Ratio 1.1 (0.8-1.1) Sodium Level 140 mmol/L (136-145) Potassium Level 3.8 mmol/L (3.5-5.1) Chloride Level 104 mmol/L (98-107) Carbon Dioxide Level 26 mmol/L (21-32) Anion Gap 10 (6-14) Blood Urea Nitrogen 22 mg/dL (7-20) Creatinine 0.9 mg/dL (0.6-1.0) Estimated GFR (Cockcroft-Gault) 66.5 BUN/Creatinine Ratio 24 (6-20) Glucose Level 165 mg/dL (70-99) Calcium Level 9.0 mg/dL (8.5-10.1) Total Bilirubin 2.9 mg/dL (0.2-1.0) Aspartate Amino Transf (AST/SGOT) 11 U/L (15-37) Alanine Aminotransferase (ALT/SGPT) 10 U/L (14-59) Alkaline Phosphatase 79 U/L (46-116) Lactate Dehydrogenase 202 U/L (81-234) Total Protein 6.7 g/dL (6.4-8.2) Albumin 3.1 g/dL (3.4-5.0) Albumin/Globulin Ratio 0.9 (1.0-1.7) Test 04/16/17 11:17 04/16/17 17:12 04/16/17 20:34 04/17/17 03:05 Glucose (Fingerstick) 211 mg/dL (70-99) 229 mg/dL (70-99) 175 mg/dL (70-99) White Blood Count 6.3 x10^3/uL (4.0-11.0) Red Blood Count 2.85 x10^6/uL (3.50-5.40) Hemoglobin 8.0 g/dL (12.0-15.5) Hematocrit 22.9 % (36.0-47.0) Mean Corpuscular Volume 80 fL (79-100) Mean Corpuscular Hemoglobin 28 pg (25-35) Mean Corpuscular Hemoglobin Concent 35 g/dL (31-37) Red Cell Distribution Width 21.1 % (11.5-14.5) Platelet Count 94 x10^3/uL (140-400) Sodium Level 142 mmol/L (136-145) Potassium Level 3.9 mmol/L (3.5-5.1) Chloride Level 106 mmol/L (98-107) Carbon Dioxide Level 28 mmol/L (21-32) Anion Gap 8 (6-14) Blood Urea Nitrogen 23 mg/dL (7-20) Creatinine 1.0 mg/dL (0.6-1.0) Estimated GFR (Cockcroft-Gault) 58.9 BUN/Creatinine Ratio 23 (6-20) Glucose Level 115 mg/dL (70-99) Calcium Level 8.4 mg/dL (8.5-10.1) Total Bilirubin 1.6 mg/dL (0.2-1.0) Aspartate Amino Transf (AST/SGOT) 10 U/L (15-37) Alanine Aminotransferase (ALT/SGPT) 11 U/L (14-59) Alkaline Phosphatase 68 U/L (46-116) Total Protein 6.6 g/dL (6.4-8.2) Albumin 3.2 g/dL (3.4-5.0) Albumin/Globulin Ratio 0.9 (1.0-1.7) Test 04/17/17 07:40 04/17/17 11:35 Glucose (Fingerstick) 181 mg/dL (70-99) 184 mg/dL (70-99) Laboratory Tests Test 04/16/17 17:12 04/16/17 20:34 04/17/17 03:05 04/17/17 07:40 Glucose (Fingerstick) 229 mg/dL (70-99) 175 mg/dL (70-99) 181 mg/dL (70-99) White Blood Count 6.3 x10^3/uL (4.0-11.0) Red Blood Count 2.85 x10^6/uL (3.50-5.40) Hemoglobin 8.0 g/dL (12.0-15.5) Hematocrit 22.9 % (36.0-47.0) Mean Corpuscular Volume 80 fL (79-100) Mean Corpuscular Hemoglobin 28 pg (25-35) Mean Corpuscular Hemoglobin Concent 35 g/dL (31-37) Red Cell Distribution Width 21.1 % (11.5-14.5) Platelet Count 94 x10^3/uL (140-400) Sodium Level 142 mmol/L (136-145) Potassium Level 3.9 mmol/L (3.5-5.1) Chloride Level 106 mmol/L (98-107) Carbon Dioxide Level 28 mmol/L (21-32) Anion Gap 8 (6-14) Blood Urea Nitrogen 23 mg/dL (7-20) Creatinine 1.0 mg/dL (0.6-1.0) Estimated GFR (Cockcroft-Gault) 58.9 BUN/Creatinine Ratio 23 (6-20) Glucose Level 115 mg/dL (70-99) Calcium Level 8.4 mg/dL (8.5-10.1) Total Bilirubin 1.6 mg/dL (0.2-1.0) Aspartate Amino Transf (AST/SGOT) 10 U/L (15-37) Alanine Aminotransferase (ALT/SGPT) 11 U/L (14-59) Alkaline Phosphatase 68 U/L (46-116) Total Protein 6.6 g/dL (6.4-8.2) Albumin 3.2 g/dL (3.4-5.0) Albumin/Globulin Ratio 0.9 (1.0-1.7) Test 04/17/17 11:35 Glucose (Fingerstick) 184 mg/dL (70-99) Microbiology 04/13/17 Blood Culture - Preliminary, Resulted NO GROWTH AFTER 4 DAYS 04/13/17 Urine Culture - Final, Complete 04/13/17 Urine Culture Result 1 (CÉSAR) - Final, Complete 04/13/17 Antimicrobic Susceptibility - Final, Complete Medications Current Medications Fentanyl Citrate (Fentanyl 2ml Vial) 25 mcg PRN Q15MIN PRN IV PAIN GREATER THAN 3/10 Last administered on 04/12/17t 23:33; Start 04/12/17 at 23:15; Stop 04/13 at 03:00; Status DC Ondansetron HCl (Zofran) 4 mg 1X ONCE IV Last administered on 04/12/17 23:33; Start 04/12/17 at 23:30; Stop 04/12/17 at 23:31; Status DC Iohexol (Omnipaque 300 Mg/ml) 75 ml 1X ONCE IV Last administered on 04/13/17 00:09; Start 04/12/17 at 23:45; Stop 04/12/17 at 23:46; Status DC Info (Do NOT chart on this entry -- for MONITORING) 1 each PRN DAILY PRN MC SEE COMMENTS; Start 04/12/17 at 23:45; Stop 04/14/17 at 23:44; Status DC Ceftriaxone Sodium 1 gm/ Sodium Chloride 50 ml @ 100 mls/hr Q24H IV Last administered on 04/14/17 23:19; Start 04/13/17 at 23:00; Stop 04/15/17 at 08:17; Status DC Ceftriaxone Sodium 50 ml @ 100 mls/hr 1X ONCE IV Last administered on 01:38; Start 04/13/17 at 01:30; Stop 04/13/17 at 01:59; Status DC Ondansetron HCl (Zofran) 4 mg PRN Q8HRS PRN IV NAUSEA/VOMITING; Start 04/13/17 at 01:30; Stop 04/14/17 at 01:29; Status DC Fentanyl Citrate (Fentanyl 2ml Vial) 50 mcg PRN Q2HR PRN IV SEVERE PAIN Last administered on 04/13/17 03:23; Start 04/13/17 at 01:30; Stop 04/14/17 at 01:29; Status DC Acetaminophen (Tylenol) 650 mg PRN Q4HRS PRN PO FEVER; Start 04/13/17 at 01:30; Stop 04/14/17 at 01:29; Status DC Insulin Aspart (NovoLOG) 0-5 UNITS TIDWMEALS SQ Last administered on 04/13/17 12:55; Start 04/13/17 at 08:00; Stop 04/13/17 at 17:00; Status DC Dextrose (Dextrose 50%-Water Syringe) 12.5 gm PRN Q15MIN PRN IV SEE COMMENTS; Start 04/13/17 at 02:00; Stop 04/13/17 at 16:22; Status DC Acetaminophen (Tylenol) 650 mg PRN Q8HRS PRN PO PAIN; Start 04/13/17 at 09:45; Stop 04/14/17 at 11:43; Status DC Acetaminophen/ Codeine Phosphate (Tylenol #3) 1 tab PRN Q4HRS PRN PO PAIN Last administered on 04/16/17 20:41; Start 04/13/17 at 09:45 Baclofen (Lioresal) 10 mg QID PO Last administered on 04/17/17 08:30; Start at 13:00 Cyanocobalamin (Vitamin B-12) 1,000 mcg QMONTH IM ; Start 04/27/17 at 09:00 Famotidine (Pepcid) 20 mg HS PO Last administered on 04/16/17 20:38; Start 04/13 at 21:00 Furosemide (Lasix) 20 mg DAILY PO Last administered on 04/13/17 12:35; Start at 10:00; Stop 04/13/17 at 14:46; Status DC Gabapentin (Neurontin) 100 mg BID PO Last administered on 04/17/17 08:31; Start 04/13/17 at 10:00 Insulin Aspart (NovoLOG) 7 units TIDBFRMEAL SQ Last administered on 04/17/17 08:53; Start 04/13/17 at 11:30 Albuterol/ Ipratropium (Duoneb) 3 ml [id number] IH Last administered on 04/17/17 07:48; Start 04/13/17 at 10:00 Al Hydroxide/Mg Hydroxide (Mylanta Plus Xs) 30 ml PRN DAILY PRN PO CONSTIPATION ; Start 04/13/17 at 09:45 Magnesium Hydroxide (Milk Of Magnesia) 2,400 mg PRN DAILY PRN PO CONSTIPATION; Start 04/13/17 at 09:45 Metformin HCl (Glucophage) 850 mg BIDWMEALS PO Last administered on 04/17/17 08:31; Start 04/15/17 at 08:00 Senna/Docusate Sodium (Senna Plus) 1 tab BID PO Last administered on 04/17/17 08:31; Start 04/13/17 at 10:00 Sucralfate (Carafate) 1 gm TIDAC PO Last administered on 04/17/17 08:30; Start 04/13/17 at 11:30 Cyclobenzaprine HCl (Flexeril) 5 mg BID PO Last administered on 04/17/17 08:30 ; Start 04/13/17 at 10:15 Artificial Tears (Artificial Tears) 1 drop QID OU Last administered on 13:29; Start 04/13/17 at 10:15; Stop 04/15/17 at 16:40; Status DC Escitalopram Oxalate (Lexapro) 20 mg DAILY PO Last administered on 04/13/17 12: 39; Start 04/13/17 at 11:00; Stop 04/14/17 at 09:55; Status DC Fluticasone Propionate (Flonase) 2 spray DAILY NS ; Start 04/13/17 at 10:00; Stop 04/13/17 at 10:30; Status DC Folic Acid (Folic Acid) 1 mg DAILY PO Last administered on 04/17/17 08:31; Start 04/13/17 at 10:00 Non-Formulary Medication 1 mg PRN PRN IJ HYPOGLYCEMIA; Start 04/13/17 at 09:45; Status Cancel Multivitamins (Thera M Plus) 1 tab DAILY PO Last administered on 04/17/17 08: 31; Start 04/13/17 at 10:00 Potassium Chloride (Klor-Con) 10 meq [id number] PO Last administered on 08:31; Start 04/13/17 at 10:00 Insulin Aspart (NovoLOG) 0-7 UNITS TIDWMEALS SQ Last administered on 04/17/17 08:54; Start 04/13/17 at 12:00 Dextrose (Dextrose 50%-Water Syringe) 12.5 gm PRN Q15MIN PRN IV SEE COMMENTS; Start 04/13/17 at 10:00 Enoxaparin Sodium (Lovenox 40mg Syringe) 40 mg Q24H SQ ; Start 04/13/17 at 10:00 ; Stop 04/13/17 at 14:46; Status DC Fluticasone Propionate (Flonase) 2 spray DAILY NS Last administered on 08:29; Start 04/13/17 at 11:00 Escitalopram Oxalate (Lexapro) 20 mg DAILY PO Last administered on 04/17/17 08 :29; Start 04/14/17 at 10:00 Acetaminophen (Tylenol) 650 mg PRN Q4HRS PRN PO pain, fever Last administered on 04/14/17 12:29; Start 04/14/17 at 11:45 Piperacillin Sod/ Tazobactam Sod 3.375 gm/Sodium Chloride 50 ml @ 100 mls/hr Q6HRS IV Last administered on 04/17/17 06:22; Start 04/15/17 at 12:00 Glucagon (Glucagen) 1 mg PRN 1X PRN IM HYPOGLYCEMIA; Start 04/15/17 at 15:15 Artificial Tears (Artificial Tears) 1 drop QID OU Last administered on 08:31; Start 04/15/17 at 16:40 Active Scripts Active Reported Tylenol With Codeine #3 Tablet (Acetaminophen/Codeine Phosphate) 1 Each Tablet 1 Tab PO PRN Q4HRS PRN Artificial Tears Eye Drops (Dextran 70/Hypromellose) 15 Ml Drops 1 Drop EACHEYE QID Lexapro (Escitalopram Oxalate) 20 Mg Tablet 1 Tab PO DAILY Famotidine 20 Mg Tablet 20 Mg PO HS Metformin Hcl 850 Mg Tablet 850 Mg PO BIDWMEALS Linzess (Linaclotide) 72 Mcg Capsule 145 Mcg PO Potassium Chloride 10 Meq Capsule.er 10 Meq PO DAILY Flonase Allergy Relief (Fluticasone Propionate) 9.9 Ml [place].susp 2 Sprays NS DAILY Glucagen (Glucagon,Human Recombinant) 1 Mg Vial 1 Mg IJ PRN PRN Milk Of Magnesia (Magnesium Hydroxide) 400 Mg/5 Ml Oral.susp 30 Ml PO DAILY PRN Mi Acid Suspension (Mag Hydrox/Al Hydrox/Simeth) 355 Ml Oral.susp 30 Ml PO DAILY PRN Loperamide (Loperamide Hcl) 2 Mg Capsule 2 Mg PO PRN PRN Acetaminophen 325 Mg Tablet 2 Tab PO Q8HRS PRN Sucralfate 1 Gm Tablet 1 Tab PO TID Senna Plus Tablet (Sennosides/Docusate Sodium) 1 Each Tablet 1 Each PO BID Cyanocobalamin Injection (Cyanocobalamin (Vitamin B-12)) 1,000 Mcg/1 Ml Vial 1 Ml IM QMONTH Baclofen 10 Mg Tablet 10 Mg PO QID Novolog Flexpen (Insulin Aspart) 100 Unit/1 Ml Insuln.pen 7 Unit SQ TIDBFRMEAL Duoneb 0.5 Mg-3 Mg/3 Ml Soln (Ipratropium/Albuterol Sulfate) 3 Ml Ampul.neb 3 Ml IH [id number] Multi Vitamin Daily (Multivitamin) 1 Each Tablet 1 Each PO DAILY Gabapentin 100 Mg Capsule 100 Mg PO BID Lasix (Furosemide) 20 Mg Tablet 20 Mg PO DAILY Folic Acid 20 Mg Capsule 1 Mg PO DAILY Cyclobenzaprine Hcl 5 Mg Tablet 5 Mg PO BID Vitals/I & O Vital Sign - Last 24 Hours 04/16/17 04/16/17 04/16/17 04/16/17 14:37 19:00 19:32 20:30 Temp 97.7 98.1 97.7 98.1 Pulse 72 72 Resp 18 20 B/P (MAP) 118/40 (66) 125/48 (73) Pulse Ox 95 97 95 O2 Delivery Nasal Cannula Nasal Cannula Nasal Cannula Nasal Cannula O2 Flow Rate 2.0 2.0 1.0 2.0 04/16/17 04/16/17 04/17/17 04/17/17 20:41 23:00 03:00 07:37 Temp 98.8 99.0 98.4 98.8 99.0 98.4 Pulse 79 61 63 Resp 16 20 20 16 B/P (MAP) 120/51 (74) 114/50 (71) 118/47 (70) Pulse Ox 92 94 94 O2 Delivery Nasal Cannula Nasal Cannula Nasal Cannula Nasal Cannula O2 Flow Rate 2.0 2.0 2.0 2.0 04/17/17 04/17/17 04/17/17 07:54 08:00 10:30 Temp 99.1 99.1 Pulse 65 Resp 18 B/P (MAP) 115/47 (69) Pulse Ox 94 96 O2 Delivery Nasal Cannula Nasal Cannula Nasal Cannula O2 Flow Rate 1.0 1.0 2.0 Intake and Output 04/16/17 04/16/17 04/17/17 15:00 23:00 07:00 Intake Total 120 ml Balance 120 ml GURVINDER MITCHELL MD Apr 17, 2017 12:30
--- NOTE | 2017-04-17 13:33 | PN ---
PROGRESS NOTES Subjective Subjective Much improved awake alert Setting in chair eating her lunch Walked for a short distance Objective Objective Vital Signs Date Time Temp Pulse Resp B/P (MAP) Pulse Ox O2 Delivery O2 Flow Rate FiO2 04/17/17 10:30 99.1 65 18 115/47 (69) 96 Nasal Cannula 2.0 99.1 Intake and Output 04/17/17 07:00 Intake Total 120 ml Balance 120 ml Intake Oral 120 ml # Voids 4 # Bowel Movements 3 Physical Exam Physical Exam Setting in chair in NAD Vitals are stable CVS S1 & S2 normal Cheat CTA Abdomen soft nontender PRESIDENT [place] gROSSLY STABLE COMMENT Her hemolysis improved after treatment of her UTI and her H&H are stable Diagnosis DIAGNOSIS Heriditary Spherocytosis Acute hemoltic anemia UTI growing E Coli PROBLEM LIST Problems Medical Problems: (1) Abdominal pain Status: Acute (2) Leukocytosis Status: Acute (3) Urinary tract infection Status: Acute Assessment Assessment Problems Medical Problems: (1) Abdominal pain Status: Acute (2) Leukocytosis Status: Acute (3) Urinary tract infection Status: Acute Plan Plan of Care Continue with I V ANTIBIOTCIS cONTINUE TO MONITOR h&h and transfuse as needed Comment Labs Laboratory Tests Test 04/15/17 16:38 04/15/17 20:42 04/16/17 05:50 04/16/17 07:21 Glucose (Fingerstick) 258 mg/dL (70-99) 168 mg/dL (70-99) 184 mg/dL (70-99) White Blood Count 8.5 x10^3/uL (4.0-11.0) Red Blood Count 3.01 x10^6/uL (3.50-5.40) Hemoglobin 8.5 g/dL (12.0-15.5) Hematocrit 24.2 % (36.0-47.0) Mean Corpuscular Volume 81 fL (79-100) Mean Corpuscular Hemoglobin 28 pg (25-35) Mean Corpuscular Hemoglobin Concent 35 g/dL (31-37) Red Cell Distribution Width 20.7 % (11.5-14.5) Platelet Count 93 x10^3/uL (140-400) Prothrombin Time 13.9 SEC (11.7-14.0) Prothromb Time International Ratio 1.1 (0.8-1.1) Sodium Level 140 mmol/L (136-145) Potassium Level 3.8 mmol/L (3.5-5.1) Chloride Level 104 mmol/L (98-107) Carbon Dioxide Level 26 mmol/L (21-32) Anion Gap 10 (6-14) Blood Urea Nitrogen 22 mg/dL (7-20) Creatinine 0.9 mg/dL (0.6-1.0) Estimated GFR (Cockcroft-Gault) 66.5 BUN/Creatinine Ratio 24 (6-20) Glucose Level 165 mg/dL (70-99) Calcium Level 9.0 mg/dL (8.5-10.1) Total Bilirubin 2.9 mg/dL (0.2-1.0) Aspartate Amino Transf (AST/SGOT) 11 U/L (15-37) Alanine Aminotransferase (ALT/SGPT) 10 U/L (14-59) Alkaline Phosphatase 79 U/L (46-116) Lactate Dehydrogenase 202 U/L (81-234) Total Protein 6.7 g/dL (6.4-8.2) Albumin 3.1 g/dL (3.4-5.0) Albumin/Globulin Ratio 0.9 (1.0-1.7) Test 04/16/17 11:17 04/16/17 17:12 04/16/17 20:34 04/17/17 03:05 Glucose (Fingerstick) 211 mg/dL (70-99) 229 mg/dL (70-99) 175 mg/dL (70-99) White Blood Count 6.3 x10^3/uL (4.0-11.0) Red Blood Count 2.85 x10^6/uL (3.50-5.40) Hemoglobin 8.0 g/dL (12.0-15.5) Hematocrit 22.9 % (36.0-47.0) Mean Corpuscular Volume 80 fL (79-100) Mean Corpuscular Hemoglobin 28 pg (25-35) Mean Corpuscular Hemoglobin Concent 35 g/dL (31-37) Red Cell Distribution Width 21.1 % (11.5-14.5) Platelet Count 94 x10^3/uL (140-400) Sodium Level 142 mmol/L (136-145) Potassium Level 3.9 mmol/L (3.5-5.1) Chloride Level 106 mmol/L (98-107) Carbon Dioxide Level 28 mmol/L (21-32) Anion Gap 8 (6-14) Blood Urea Nitrogen 23 mg/dL (7-20) Creatinine 1.0 mg/dL (0.6-1.0) Estimated GFR (Cockcroft-Gault) 58.9 BUN/Creatinine Ratio 23 (6-20) Glucose Level 115 mg/dL (70-99) Calcium Level 8.4 mg/dL (8.5-10.1) Total Bilirubin 1.6 mg/dL (0.2-1.0) Aspartate Amino Transf (AST/SGOT) 10 U/L (15-37) Alanine Aminotransferase (ALT/SGPT) 11 U/L (14-59) Alkaline Phosphatase 68 U/L (46-116) Total Protein 6.6 g/dL (6.4-8.2) Albumin 3.2 g/dL (3.4-5.0) Albumin/Globulin Ratio 0.9 (1.0-1.7) Test 04/17/17 07:40 04/17/17 11:35 Glucose (Fingerstick) 181 mg/dL (70-99) 184 mg/dL (70-99) Laboratory Tests Test 04/16/17 17:12 04/16/17 20:34 04/17/17 03:05 04/17/17 07:40 Glucose (Fingerstick) 229 mg/dL (70-99) 175 mg/dL (70-99) 181 mg/dL (70-99) White Blood Count 6.3 x10^3/uL (4.0-11.0) Red Blood Count 2.85 x10^6/uL (3.50-5.40) Hemoglobin 8.0 g/dL (12.0-15.5) Hematocrit 22.9 % (36.0-47.0) Mean Corpuscular Volume 80 fL (79-100) Mean Corpuscular Hemoglobin 28 pg (25-35) Mean Corpuscular Hemoglobin Concent 35 g/dL (31-37) Red Cell Distribution Width 21.1 % (11.5-14.5) Platelet Count 94 x10^3/uL (140-400) Sodium Level 142 mmol/L (136-145) Potassium Level 3.9 mmol/L (3.5-5.1) Chloride Level 106 mmol/L (98-107) Carbon Dioxide Level 28 mmol/L (21-32) Anion Gap 8 (6-14) Blood Urea Nitrogen 23 mg/dL (7-20) Creatinine 1.0 mg/dL (0.6-1.0) Estimated GFR (Cockcroft-Gault) 58.9 BUN/Creatinine Ratio 23 (6-20) Glucose Level 115 mg/dL (70-99) Calcium Level 8.4 mg/dL (8.5-10.1) Total Bilirubin 1.6 mg/dL (0.2-1.0) Aspartate Amino Transf (AST/SGOT) 10 U/L (15-37) Alanine Aminotransferase (ALT/SGPT) 11 U/L (14-59) Alkaline Phosphatase 68 U/L (46-116) Total Protein 6.6 g/dL (6.4-8.2) Albumin 3.2 g/dL (3.4-5.0) Albumin/Globulin Ratio 0.9 (1.0-1.7) Test 04/17/17 11:35 Glucose (Fingerstick) 184 mg/dL (70-99) Microbiology 04/13/17 Blood Culture - Preliminary, Resulted NO GROWTH AFTER 4 DAYS 04/13/17 Urine Culture - Final, Complete 04/13/17 Urine Culture Result 1 (CÉSAR) - Final, Complete 04/13/17 Antimicrobic Susceptibility - Final, Complete Medications Current Medications Fentanyl Citrate (Fentanyl 2ml Vial) 25 mcg PRN Q15MIN PRN IV PAIN GREATER THAN 3/10 Last administered on 04/12/17 23:33; Start 04/12/17 at 23:15; Stop 04/13 at 03:00; Status DC Ondansetron HCl (Zofran) 4 mg 1X ONCE IV Last administered on 04/12/17 23:33; Start 04/12/17 at 23:30; Stop 04/12/17 at 23:31; Status DC Iohexol (Omnipaque 300 Mg/ml) 75 ml 1X ONCE IV Last administered on 04/13/17 00:09; Start 04/12/17 at 23:45; Stop 04/12/17 at 23:46; Status DC Info (Do NOT chart on this entry -- for MONITORING) 1 each PRN DAILY PRN MC SEE COMMENTS; Start 04/12/17 at 23:45; Stop 04/14/17 at 23:44; Status DC Ceftriaxone Sodium 1 gm/ Sodium Chloride 50 ml @ 100 mls/hr Q24H IV Last administered on 04/14/17 23:19; Start 04/13/17 at 23:00; Stop 04/15/17 at 08:17; Status DC Ceftriaxone Sodium 50 ml @ 100 mls/hr 1X ONCE IV Last administered on 01:38; Start 04/13/17 at 01:30; Stop 04/13/17 at 01:59; Status DC Ondansetron HCl (Zofran) 4 mg PRN Q8HRS PRN IV NAUSEA/VOMITING; Start 04/13/17 at 01:30; Stop 04/14/17 at 01:29; Status DC Fentanyl Citrate (Fentanyl 2ml Vial) 50 mcg PRN Q2HR PRN IV SEVERE PAIN Last administered on 04/13/17 03:23; Start 04/13/17 at 01:30; Stop 04/14/17 at 01:29; Status DC Acetaminophen (Tylenol) 650 mg PRN Q4HRS PRN PO FEVER; Start 04/13/17 at 01:30; Stop 04/14/17 at 01:29; Status DC Insulin Aspart (NovoLOG) 0-5 UNITS TIDWMEALS SQ Last administered on 04/13/17 12:55; Start 04/13/17 at 08:00; Stop 04/13/17 at 17:00; Status DC Dextrose (Dextrose 50%-Water Syringe) 12.5 gm PRN Q15MIN PRN IV SEE COMMENTS; Start 04/13/17 at 02:00; Stop 04/13/17 at 16:22; Status DC Acetaminophen (Tylenol) 650 mg PRN Q8HRS PRN PO PAIN; Start 04/13/17 at 09:45; Stop 04/14/17 at 11:43; Status DC Acetaminophen/ Codeine Phosphate (Tylenol #3) 1 tab PRN Q4HRS PRN PO PAIN Last administered on 04/16/17 20:41; Start 04/13/17 at 09:45 Baclofen (Lioresal) 10 mg QID PO Last administered on 04/17/17 12:20; Start at 13:00 Cyanocobalamin (Vitamin B-12) 1,000 mcg QMONTH IM ; Start 04/27/17 at 09:00 Famotidine (Pepcid) 20 mg HS PO Last administered on 04/16/17 20:38; Start 04/13 at 21:00 Furosemide (Lasix) 20 mg DAILY PO Last administered on 04/13/17 12:35; Start at 10:00; Stop 04/13/17 at 14:46; Status DC Gabapentin (Neurontin) 100 mg BID PO Last administered on 04/17/17 08:31; Start 04/13/17 at 10:00 Insulin Aspart (NovoLOG) 7 units TIDBFRMEAL SQ Last administered on 04/17/17 12:25; Start 04/13/17 at 11:30 Albuterol/ Ipratropium (Duoneb) 3 ml [id number] IH Last administered on 04/17/17 07:48; Start 04/13/17 at 10:00 Al Hydroxide/Mg Hydroxide (Mylanta Plus Xs) 30 ml PRN DAILY PRN PO CONSTIPATION ; Start 04/13/17 at 09:45 Magnesium Hydroxide (Milk Of Magnesia) 2,400 mg PRN DAILY PRN PO CONSTIPATION; Start 04/13/17 at 09:45 Metformin HCl (Glucophage) 850 mg BIDWMEALS PO Last administered on 04/17/17 08:31; Start 04/15/17 at 08:00 Senna/Docusate Sodium (Senna Plus) 1 tab BID PO Last administered on 04/17/17 08:31; Start 04/13/17 at 10:00 Sucralfate (Carafate) 1 gm TIDAC PO Last administered on 04/17/17 12:19; Start 04/13/17 at 11:30 Cyclobenzaprine HCl (Flexeril) 5 mg BID PO Last administered on 04/17/17 08:30 ; Start 04/13/17 at 10:15 Artificial Tears (Artificial Tears) 1 drop QID OU Last administered on 13:29; Start 04/13/17 at 10:15; Stop 04/15/17 at 16:40; Status DC Escitalopram Oxalate (Lexapro) 20 mg DAILY PO Last administered on 04/13/17 12: 39; Start 04/13/17 at 11:00; Stop 04/14/17 at 09:55; Status DC Fluticasone Propionate (Flonase) 2 spray DAILY NS ; Start 04/13/17 at 10:00; Stop 04/13/17 at 10:30; Status DC Folic Acid (Folic Acid) 1 mg DAILY PO Last administered on 04/17/17 08:31; Start 04/13/17 at 10:00 Non-Formulary Medication 1 mg PRN PRN IJ HYPOGLYCEMIA; Start 04/13/17 at 09:45; Status Cancel Multivitamins (Thera M Plus) 1 tab DAILY PO Last administered on 04/17/17 08: 31; Start 04/13/17 at 10:00 Potassium Chloride (Klor-Con) 10 meq [id number] PO Last administered on 08:31; Start 04/13/17 at 10:00 Insulin Aspart (NovoLOG) 0-7 UNITS TIDWMEALS SQ Last administered on 04/17/17 12:26; Start 04/13/17 at 12:00 Dextrose (Dextrose 50%-Water Syringe) 12.5 gm PRN Q15MIN PRN IV SEE COMMENTS; Start 04/13/17 at 10:00 Enoxaparin Sodium (Lovenox 40mg Syringe) 40 mg Q24H SQ ; Start 04/13/17 at 10:00 ; Stop 04/13/17 at 14:46; Status DC Fluticasone Propionate (Flonase) 2 spray DAILY NS Last administered on 08:29; Start 04/13/17 at 11:00 Escitalopram Oxalate (Lexapro) 20 mg DAILY PO Last administered on 04/17/17 08 :29; Start 04/14/17 at 10:00 Acetaminophen (Tylenol) 650 mg PRN Q4HRS PRN PO pain, fever Last administered on 04/14/17 12:29; Start 04/14/17 at 11:45 Piperacillin Sod/ Tazobactam Sod 3.375 gm/Sodium Chloride 50 ml @ 100 mls/hr Q6HRS IV Last administered on 04/17/17 12:19; Start 04/15/17 at 12:00 Glucagon (Glucagen) 1 mg PRN 1X PRN IM HYPOGLYCEMIA; Start 04/15/17 at 15:15 Artificial Tears (Artificial Tears) 1 drop QID OU Last administered on t 12:20; Start 04/15/17 at 16:40 Active Scripts Active Reported Tylenol With Codeine #3 Tablet (Acetaminophen/Codeine Phosphate) 1 Each Tablet 1 Tab PO PRN Q4HRS PRN Artificial Tears Eye Drops (Dextran 70/Hypromellose) 15 Ml Drops 1 Drop EACHEYE QID Lexapro (Escitalopram Oxalate) 20 Mg Tablet 1 Tab PO DAILY Famotidine 20 Mg Tablet 20 Mg PO HS Metformin Hcl 850 Mg Tablet 850 Mg PO BIDWMEALS Linzess (Linaclotide) 72 Mcg Capsule 145 Mcg PO Potassium Chloride 10 Meq Capsule.er 10 Meq PO DAILY Flonase Allergy Relief (Fluticasone Propionate) 9.9 Ml [place].susp 2 Sprays NS DAILY Glucagen (Glucagon,Human Recombinant) 1 Mg Vial 1 Mg IJ PRN PRN Milk Of Magnesia (Magnesium Hydroxide) 400 Mg/5 Ml Oral.susp 30 Ml PO DAILY PRN Mi Acid Suspension (Mag Hydrox/Al Hydrox/Simeth) 355 Ml Oral.susp 30 Ml PO DAILY PRN Loperamide (Loperamide Hcl) 2 Mg Capsule 2 Mg PO PRN PRN Acetaminophen 325 Mg Tablet 2 Tab PO Q8HRS PRN Sucralfate 1 Gm Tablet 1 Tab PO TID Senna Plus Tablet (Sennosides/Docusate Sodium) 1 Each Tablet 1 Each PO BID Cyanocobalamin Injection (Cyanocobalamin (Vitamin B-12)) 1,000 Mcg/1 Ml Vial 1 Ml IM QMONTH Baclofen 10 Mg Tablet 10 Mg PO QID Novolog Flexpen (Insulin Aspart) 100 Unit/1 Ml Insuln.pen 7 Unit SQ TIDBFRMEAL Duoneb 0.5 Mg-3 Mg/3 Ml Soln (Ipratropium/Albuterol Sulfate) 3 Ml Ampul.neb 3 Ml IH [id number] Multi Vitamin Daily (Multivitamin) 1 Each Tablet 1 Each PO DAILY Gabapentin 100 Mg Capsule 100 Mg PO BID Lasix (Furosemide) 20 Mg Tablet 20 Mg PO DAILY Folic Acid 20 Mg Capsule 1 Mg PO DAILY Cyclobenzaprine Hcl 5 Mg Tablet 5 Mg PO BID Vitals/I & O Vital Sign - Last 24 Hours 7/9/04/16/17 04/16/17 04/16/17 14:37 19:00 19:32 20:30 Temp 97.7 98.1 97.7 98.1 Pulse 72 72 Resp 18 20 B/P (MAP) 118/40 (66) 125/48 (73) Pulse Ox 95 97 95 O2 Delivery Nasal Cannula Nasal Cannula Nasal Cannula Nasal Cannula O2 Flow Rate 2.0 2.0 1.0 2.0 04/16/17 04/16/17 04/17/17 04/17/17 20:41 23:00 03:00 07:37 Temp 98.8 99.0 98.4 98.8 99.0 98.4 Pulse 79 61 63 Resp 16 20 20 16 B/P (MAP) 120/51 (74) 114/50 (71) 118/47 (70) Pulse Ox 92 94 94 O2 Delivery Nasal Cannula Nasal Cannula Nasal Cannula Nasal Cannula O2 Flow Rate 2.0 2.0 2.0 2.0 04/17/17 04/17/17 04/17/17 07:54 08:00 10:30 Temp 99.1 99.1 Pulse 65 Resp 18 B/P (MAP) 115/47 (69) Pulse Ox 94 96 O2 Delivery Nasal Cannula Nasal Cannula Nasal Cannula O2 Flow Rate 1.0 1.0 2.0 Intake and Output 04/16/17 04/16/17 04/17/17 15:00 23:00 07:00 Intake Total 120 ml Balance 120 ml USMAN BRAUN MD Apr 17, 2017 13:33
[2017-04-17 15:00] VITALS: BP 118/42
[2017-04-17 19:00] VITALS: BP 118/49
[2017-04-17] MEDS: FAMOTIDINE 20 MG TABLET. PO SCH (21:29)
[2017-04-17 23:00] VITALS: BP 99/39
[2017-04-18] MEDS: PIPERACILLIN/TAZOBACTAM 3.375 GM in IV NORMAL SALINE 50ML 50 ML IV SCH ×2 (00:11→06:01)
[2017-04-18 03:00] VITALS: BP 117/32
[2017-04-18] MEDS: ACETAMINOPHEN/CODEINE 300/30MG TABLET. PO PRN (06:02)
[2017-04-18 07:00] VITALS: BP 130/53
[2017-04-18] MEDS: IPRATRPIUM/ALBUTEROL 0.5/2.5MG 3 ML NEBU. IH SCH (07:21)
[2017-04-18] MEDS: metFORMIN 850 MG TABLET PO SCH (08:15)
[2017-04-18] MEDS: ESCITALOPRAM 5 MG TABLET. PO SCH (08:15)
[2017-04-18] MEDS: SUCRALFATE 1 GM TABLET. PO SCH ×2 (08:15→12:17)
[2017-04-18] MEDS: POTASSIUM CHLORIDE 10 MEQ TABLET.ER. PO SCH (08:15)
[2017-04-18] MEDS: GABAPENTIN 100 MG CAPSULE. PO SCH (08:15)
[2017-04-18] MEDS: CYCLOBENZAPRINE 10 MG TABLET. PO SCH (08:16)
[2017-04-18] MEDS: SENNOSIDES/DOCUSATE 8.6/50MG TABLET. PO SCH (08:16)
[2017-04-18] MEDS: BACLOFEN 10 MG TABLET. PO SCH ×2 (08:16→12:18)
[2017-04-18] MEDS: FOLIC ACID 1 MG TABLET. PO SCH (08:16)
[2017-04-18] MEDS: FLUTICASONE 50MCG/NASAL SPRAY 16GM BOTTLE. NS SCH (08:17)
[2017-04-18] MEDS: POLYVINYL ALCOHOL 1.4% OPHTH SOLUTION 15ML BOTTLE. OU SCH ×2 (08:17→12:18)
[2017-04-18] MEDS: INSULIN ASPART 300 UNITS/3 ML INSULN.PEN SQ SCH ×4 (08:18→12:21)
[2017-04-18] MEDS: MULTIVITAMIN with MINERAL TABLET. PO SCH (08:22)
--- NOTE | 2017-04-18 09:13 | PDOC ---
Infectious Disease Note Subjective Subjective Better. Had a good breakfast ROS ROS GEN: Denies fevers, chills, sweats HEENT: Denies blurred vision, sore throat CV: Denies chest pain RESP: Denies shortness of air, cough GI: Denies n/v/d NEURO: Denies confusion, dizziness MSK: Denies weakness, joint pain/swelling Vital Sign Vital Signs Vital Signs Date Time Temp Pulse Resp B/P (MAP) Pulse Ox O2 Delivery O2 Flow Rate FiO2 04/18/17 07:26 97 Nasal Cannula 1.0 04/18/17 07:00 99.2 67 18 130/53 (78) 99.2 Physical Exam PHYSICAL EXAM GENERAL: NAD, Alert, coop. Eating HEENT: PERRL, OC/OP- clear NECK: Supple, no JVD, no LN LUNGS: Clear. 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, no focal neurologic deficit SKIN: No rash IV: ok Labs Lab Laboratory Tests Test 04/17/17 11:35 04/17/17 17:27 04/17/17 21:04 04/18/17 07:29 Glucose (Fingerstick) 184 mg/dL (70-99) 105 mg/dL (70-99) 172 mg/dL (70-99) 171 mg/dL (70-99) Micro 04/13 Escherichia coli Greater than 100,000 colony forming units per mL ANTIMICROBIAL SUSCEPTIBILITY Final Comment S = Susceptible; I = Intermediate; R = Resistant P = Positive; N = Negative MICS are expressed in micrograms per mL Antibiotic RSLT#1 RSLT#2 RSLT#3 RSLT#4 Amoxicillin/Clavulanic Acid S Ampicillin R Cefepime S Ceftriaxone S Cefuroxime S Cephalothin I Ciprofloxacin R Ertapenem S Gentamicin S Imipenem S Levofloxacin R Nitrofurantoin S Piperacillin S Tetracycline R Tobramycin S Trimethoprim/Sulfa R Objective Assessment abd pain - better uti - Ecoli 04/13 dm anemia - better hereditiory spherocytosis esteban wbc possible sepsis due to UTI h/o cervical stenosis with paraplegia obesity possible aspiration Plan Plan of Care Discont zosyn (04/15), change to Augmentin F/u labs/response VALE HORNER MD Apr 18, 2017 09:13
[2017-04-18] MEDS ORDERED: AMOXICILLIN/K CLAV 875/125MG TABLET. PO SCH (09:15)
[2017-04-18 09:52] LABS: BASO # 0.1 x10^3/uL (0.0-0.2); BASO % 1 % (0-3); EOS % 2 % (0-3); HEMATOCRIT 23.4 % (36.0-47.0); HEMOGLOBIN 8.2 g/dL (12.0-15.5); LYMPH # 0.8 x10^3/uL (1.0-4.8); LYMPH % 10 % (24-48); MEAN CORPUSCULAR HEMOGLOBIN 28 pg (25-35); MEAN CORPUSCULAR HGB CONC 35 g/dL (31-37); MEAN CORPUSCULAR VOLUME 80 fL (79-100); MONO % 5 % (0-9); NEUT % 82 % (31-73); PLATELET COUNT 105 x10^3/uL (140-400); RED BLOOD COUNT 2.93 x10^6/uL (3.50-5.40); RED CELL DISTRIBUTION WIDTH 21.8 % (11.5-14.5); WHITE BLOOD COUNT 7.6 x10^3/uL (4.0-11.0)
[2017-04-18 09:53] LABS: RETIC COUNT 2.2 % (0.5-2.5)
--- NOTE | 2017-04-18 10:21 | PDOC ---
PROGRESS NOTES Subjective Subjective no new problems ,doing well Objective Objective Vital Signs Date Time Temp Pulse Resp B/P (MAP) Pulse Ox O2 Delivery O2 Flow Rate FiO2 04/18/17 08:00 Nasal Cannula 2.0 04/18/17 07:26 97 04/18/17 07:00 99.2 67 18 130/53 (78) 99.2 Intake and Output 04/18/17 07:00 Intake Total 100 ml Balance 100 ml Intake Oral 0 ml IV Total 100 ml # Voids 3 # Bowel Movements 1 Physical Exam Abdomen: Normal bowel sounds, Soft Heart: Normal S1, Normal S2 Extremities: No edema General: Alert HEENT: Atraumatic Lungs: Clear to auscultation MUSCULOSKELETAL: No swelling, Other (was able to move le/feet ) Neck: Supple Neuro: Normal gait Psych/Mental Status: Mental status NL, Mood NL Skin: No rashes Diagnosis Problem List Problems Medical Problems: (1) Abdominal pain Status: Acute (2) Leukocytosis Status: Acute (3) Urinary tract infection Status: Acute Assessment Assessment Problems Medical Problems: (1) Abdominal pain Status: Acute (2) Leukocytosis Status: Acute (3) Urinary tract infection Status: Acute Hereditary Spherocytosis Acute hemolytic anemia UTI growing E Coli Anemia requiring transfusions. PLAN . d/c back to [place] po Vant[place] x 5 days hb 8.0 stable spoke with sister ,CARLOS Problems: Plan Plan of Care Problems Medical Problems: (1) Abdominal pain Status: Acute (2) Leukocytosis Status: Acute (3) Urinary tract infection Status: Acute Comment Review of Relevant I have reviewed the following items shira (where applicable) has been applied. Labs Laboratory Tests Test 04/17/17 11:35 04/17/17 17:27 04/17/17 21:04 04/18/17 07:29 Glucose (Fingerstick) 184 mg/dL (70-99) 105 mg/dL (70-99) 172 mg/dL (70-99) 171 mg/dL (70-99) Test 04/18/17 09:35 White Blood Count 7.6 x10^3/uL (4.0-11.0) Red Blood Count 2.93 x10^6/uL (3.50-5.40) Hemoglobin 8.2 g/dL (12.0-15.5) Hematocrit 23.4 % (36.0-47.0) Mean Corpuscular Volume 80 fL (79-100) Mean Corpuscular Hemoglobin 28 pg (25-35) Mean Corpuscular Hemoglobin Concent 35 g/dL (31-37) Red Cell Distribution Width 21.8 % (11.5-14.5) Platelet Count 105 x10^3/uL (140-400) Neutrophils (%) (Auto) 82 % (31-73) Lymphocytes (%) (Auto) 10 % (24-48) Monocytes (%) (Auto) 5 % (0-9) Eosinophils (%) (Auto) 2 % (0-3) Basophils (%) (Auto) 1 % (0-3) Neutrophils # (Auto) 6.3 x10^3uL (1.8-7.7) Lymphocytes # (Auto) 0.8 x10^3/uL (1.0-4.8) Monocytes # (Auto) 0.4 x10^3/uL (0.0-1.1) Eosinophils # (Auto) 0.1 x10^3/uL (0.0-0.7) Basophils # (Auto) 0.1 x10^3/uL (0.0-0.2) Reticulocyte Count (auto) 2.2 % (0.5-2.5) Lactate Dehydrogenase 268 U/L (81-234) Microbiology 04/13/17 Blood Culture - Preliminary, Resulted NO GROWTH AFTER 4 DAYS 04/13/17 Urine Culture - Final, Complete 04/13/17 Urine Culture Result 1 (CÉSAR) - Final, Complete 04/13/17 Antimicrobic Susceptibility - Final, Complete Medications Current Medications Amoxicillin/ Clavulanate Potassium (Augmentin 875/ 125mg) 1 tab BID PO ; Start 04/18/17 at 09:15 Cyanocobalamin (Vitamin B-12) 1,000 mcg QMONTH IM ; Start 04/27/17 at 09:00 Vitals/I & O Vital Sign - Last 24 Hours 04/17/17 04/17/17 04/17/17 04/17/17 10:30 13:26 15:00 19:00 Temp 99.1 98.1 97.9 99.1 98.1 97.9 Pulse 65 61 68 Resp 18 16 20 B/P (MAP) 115/47 (69) 118/42 (67) 118/49 (72) Pulse Ox 96 98 91 O2 Delivery Nasal Cannula Nasal Cannula Nasal Cannula Nasal Cannula O2 Flow Rate 2.0 1.0 2.0 2.0 04/17/17 04/17/17 04/17/17 04/18/17 20:00 20:00 23:00 03:00 Temp 96.9 97.7 96.9 97.7 Pulse 60 61 Resp 20 20 B/P (MAP) 99/39 (59) 117/32 (60) Pulse Ox 93 95 O2 Delivery Nasal Cannula Nasal Cannula Nasal Cannula Nasal Cannula O2 Flow Rate 2.0 2.0 2.0 2.0 04/18/17 04/18/17 04/18/17 04/18/17 06:02 07:00 07:19 07:26 Temp 99.2 99.2 Pulse 67 Resp 16 18 B/P (MAP) 130/53 (78) Pulse Ox 97 95 97 O2 Delivery Nasal Cannula Room Air Nasal Cannula Nasal Cannula O2 Flow Rate 2.0 2.0 1.0 04/18/17 08:00 O2 Delivery Nasal Cannula O2 Flow Rate 2.0 Intake and Output 04/17/17 04/17/17 04/18/17 15:00 23:00 07:00 Intake Total 50 ml 50 ml Balance 50 ml 50 ml VIKI TRACY MD Apr 18, 2017 10:20
[2017-04-18 11:01] VITALS: BP 111/42
--- NOTE | 2017-04-18 14:00 | PDOC ---
PROGRESS NOTES Subjective Subjective c/c - f/u of anemia Objective Objective Vital Signs Date Time Temp Pulse Resp B/P (MAP) Pulse Ox O2 Delivery O2 Flow Rate FiO2 04/18/17 11:01 99.2 59 18 111/42 (65) 97 Nasal Cannula 2.0 99.2 Intake and Output 04/18/17 07:00 Intake Total 100 ml Balance 100 ml Intake Oral 0 ml IV Total 100 ml # Voids 3 # Bowel Movements 1 Physical Exam Heart: Normal S1, Normal S2 General: Alert Lungs: Clear to auscultation Assessment Assessment Problems Medical Problems: (1) Abdominal pain Status: Acute (2) Leukocytosis Status: Acute (3) Urinary tract infection Status: Acute IMPRESSION AND PLAN: 1. Acute anemia. The patient has drop in hemoglobin from 9.0 to 6.8. She has mild hemolysis suggested by elevated retic and decreased haptoglobin and her LDH level is normal. I will continue to monitor hemoglobin and transfuse as needed. I will continue to monitor the hemoglobin and I would recommend transfusion as needed. I suspect the underlying urinary tract infection has led to worsening hemoglobin levels and it should improve over time. I reviewed all the old records. She does not seem to have problems with severe hemolysis and the hemoglobin gets worse whenever she has an infection. If hemolysis becomes an ongoing problem in the future then splenectomy can be considered however she would be at higher risk because of her poor functional status and her comorbidities. Hb 8.2, s/p transfusion of 4 units PRBC. Monitor Hb and transfuse as needed. Retic now normal at 2.2 indicating improvement in hemolysis. 2. Leukocytosis, reactive. Monitor 3. Thrombocytopenia with platelet count of 105,000. this is suggestive of reactive thrombocytopenia, probably from an underlying infection. I will continue to monitor PRN. 4. History of hereditary spherocytosis. Comment Review of Relevant I have reviewed the following items shira (where applicable) has been applied. Labs Laboratory Tests Test 04/16/17 17:12 04/16/17 20:34 04/17/17 03:05 04/17/17 07:40 Glucose (Fingerstick) 229 mg/dL (70-99) 175 mg/dL (70-99) 181 mg/dL (70-99) White Blood Count 6.3 x10^3/uL (4.0-11.0) Red Blood Count 2.85 x10^6/uL (3.50-5.40) Hemoglobin 8.0 g/dL (12.0-15.5) Hematocrit 22.9 % (36.0-47.0) Mean Corpuscular Volume 80 fL (79-100) Mean Corpuscular Hemoglobin 28 pg (25-35) Mean Corpuscular Hemoglobin Concent 35 g/dL (31-37) Red Cell Distribution Width 21.1 % (11.5-14.5) Platelet Count 94 x10^3/uL (140-400) Sodium Level 142 mmol/L (136-145) Potassium Level 3.9 mmol/L (3.5-5.1) Chloride Level 106 mmol/L (98-107) Carbon Dioxide Level 28 mmol/L (21-32) Anion Gap 8 (6-14) Blood Urea Nitrogen 23 mg/dL (7-20) Creatinine 1.0 mg/dL (0.6-1.0) Estimated GFR (Cockcroft-Gault) 58.9 BUN/Creatinine Ratio 23 (6-20) Glucose Level 115 mg/dL (70-99) Calcium Level 8.4 mg/dL (8.5-10.1) Total Bilirubin 1.6 mg/dL (0.2-1.0) Aspartate Amino Transf (AST/SGOT) 10 U/L (15-37) Alanine Aminotransferase (ALT/SGPT) 11 U/L (14-59) Alkaline Phosphatase 68 U/L (46-116) Total Protein 6.6 g/dL (6.4-8.2) Albumin 3.2 g/dL (3.4-5.0) Albumin/Globulin Ratio 0.9 (1.0-1.7) Test 04/17/17 11:35 04/17/17 17:27 04/17/17 21:04 04/18/17 07:29 Glucose (Fingerstick) 184 mg/dL (70-99) 105 mg/dL (70-99) 172 mg/dL (70-99) 171 mg/dL (70-99) Test 04/18/17 09:35 04/18/17 11:30 White Blood Count 7.6 x10^3/uL (4.0-11.0) Red Blood Count 2.93 x10^6/uL (3.50-5.40) Hemoglobin 8.2 g/dL (12.0-15.5) Hematocrit 23.4 % (36.0-47.0) Mean Corpuscular Volume 80 fL (79-100) Mean Corpuscular Hemoglobin 28 pg (25-35) Mean Corpuscular Hemoglobin Concent 35 g/dL (31-37) Red Cell Distribution Width 21.8 % (11.5-14.5) Platelet Count 105 x10^3/uL (140-400) Neutrophils (%) (Auto) 82 % (31-73) Lymphocytes (%) (Auto) 10 % (24-48) Monocytes (%) (Auto) 5 % (0-9) Eosinophils (%) (Auto) 2 % (0-3) Basophils (%) (Auto) 1 % (0-3) Neutrophils # (Auto) 6.3 x10^3uL (1.8-7.7) Lymphocytes # (Auto) 0.8 x10^3/uL (1.0-4.8) Monocytes # (Auto) 0.4 x10^3/uL (0.0-1.1) Eosinophils # (Auto) 0.1 x10^3/uL (0.0-0.7) Basophils # (Auto) 0.1 x10^3/uL (0.0-0.2) Reticulocyte Count (auto) 2.2 % (0.5-2.5) Lactate Dehydrogenase 268 U/L (81-234) Glucose (Fingerstick) 158 mg/dL (70-99) Laboratory Tests Test 04/17/17 17:27 04/17/17 21:04 04/18/17 07:29 04/18/17 09:35 Glucose (Fingerstick) 105 mg/dL (70-99) 172 mg/dL (70-99) 171 mg/dL (70-99) White Blood Count 7.6 x10^3/uL (4.0-11.0) Red Blood Count 2.93 x10^6/uL (3.50-5.40) Hemoglobin 8.2 g/dL (12.0-15.5) Hematocrit 23.4 % (36.0-47.0) Mean Corpuscular Volume 80 fL (79-100) Mean Corpuscular Hemoglobin 28 pg (25-35) Mean Corpuscular Hemoglobin Concent 35 g/dL (31-37) Red Cell Distribution Width 21.8 % (11.5-14.5) Platelet Count 105 x10^3/uL (140-400) Neutrophils (%) (Auto) 82 % (31-73) Lymphocytes (%) (Auto) 10 % (24-48) Monocytes (%) (Auto) 5 % (0-9) Eosinophils (%) (Auto) 2 % (0-3) Basophils (%) (Auto) 1 % (0-3) Neutrophils # (Auto) 6.3 x10^3uL (1.8-7.7) Lymphocytes # (Auto) 0.8 x10^3/uL (1.0-4.8) Monocytes # (Auto) 0.4 x10^3/uL (0.0-1.1) Eosinophils # (Auto) 0.1 x10^3/uL (0.0-0.7) Basophils # (Auto) 0.1 x10^3/uL (0.0-0.2) Reticulocyte Count (auto) 2.2 % (0.5-2.5) Lactate Dehydrogenase 268 U/L (81-234) Test 04/18/17 11:30 Glucose (Fingerstick) 158 mg/dL (70-99) Microbiology 04/13/17 Blood Culture - Final, Complete NO GROWTH AFTER 5 DAYS 04/13/17 Urine Culture - Final, Complete 04/13/17 Urine Culture Result 1 (CÉSAR) - Final, Complete 04/13/17 Antimicrobic Susceptibility - Final, Complete Medications Current Medications Fentanyl Citrate (Fentanyl 2ml Vial) 25 mcg PRN Q15MIN PRN IV PAIN GREATER THAN 3/10 Last administered on 04/12/17 23:33; Start 04/12/17 at 23:15; Stop 04/13 at 03:00; Status DC Ondansetron HCl (Zofran) 4 mg 1X ONCE IV Last administered on 04/12/17 23:33; Start 04/12/17 at 23:30; Stop 04/12/17 at 23:31; Status DC Iohexol (Omnipaque 300 Mg/ml) 75 ml 1X ONCE IV Last administered on 04/13/17 00:09; Start 04/12/17 at 23:45; Stop 04/12/17 at 23:46; Status DC Info (Do NOT chart on this entry -- for MONITORING) 1 each PRN DAILY PRN MC SEE COMMENTS; Start 04/12/17 at 23:45; Stop 04/14/17 at 23:44; Status DC Ceftriaxone Sodium 1 gm/ Sodium Chloride 50 ml @ 100 mls/hr Q24H IV Last administered on 04/14/17 23:19; Start 04/13/17 at 23:00; Stop 04/15/17 at 08:17; Status DC Ceftriaxone Sodium 50 ml @ 100 mls/hr 1X ONCE IV Last administered on 01:38; Start 04/13/17 at 01:30; Stop 04/13/17 at 01:59; Status DC Ondansetron HCl (Zofran) 4 mg PRN Q8HRS PRN IV NAUSEA/VOMITING; Start 04/13/17 at 01:30; Stop 04/14/17 at 01:29; Status DC Fentanyl Citrate (Fentanyl 2ml Vial) 50 mcg PRN Q2HR PRN IV SEVERE PAIN Last administered on 04/13/17 03:23; Start 04/13/17 at 01:30; Stop 04/14/17 at 01:29; Status DC Acetaminophen (Tylenol) 650 mg PRN Q4HRS PRN PO FEVER; Start 04/13/17 at 01:30; Stop 04/14/17 at 01:29; Status DC Insulin Aspart (NovoLOG) 0-5 UNITS TIDWMEALS SQ Last administered on 04/13/17 12:55; Start 04/13/17 at 08:00; Stop 04/13/17 at 17:00; Status DC Dextrose (Dextrose 50%-Water Syringe) 12.5 gm PRN Q15MIN PRN IV SEE COMMENTS; Start 04/13/17 at 02:00; Stop 04/13/17 at 16:22; Status DC Acetaminophen (Tylenol) 650 mg PRN Q8HRS PRN PO PAIN; Start 04/13/17 at 09:45; Stop 04/14/17 at 11:43; Status DC Acetaminophen/ Codeine Phosphate (Tylenol #3) 1 tab PRN Q4HRS PRN PO PAIN Last administered on 04/18/17 06:02; Start 04/13/17 at 09:45 Baclofen (Lioresal) 10 mg QID PO Last administered on 04/18/17 12:18; Start at 13:00 Cyanocobalamin (Vitamin B-12) 1,000 mcg QMONTH IM ; Start 04/27/17 at 09:00 Famotidine (Pepcid) 20 mg HS PO Last administered on 04/17/17 21:29; Start 04/13/17 at 21:00 Furosemide (Lasix) 20 mg DAILY PO Last administered on 04/13/17 12:35; Start at 10:00; Stop 04/13/17 at 14:46; Status DC Gabapentin (Neurontin) 100 mg BID PO Last administered on 04/18/17 08:15; Start 04/13/17 at 10:00 Insulin Aspart (NovoLOG) 7 units TIDBFRMEAL SQ Last administered on 04/18/17 12:20; Start 04/13/17 at 11:30 Albuterol/ Ipratropium (Duoneb) 3 ml [id number] IH Last administered on 04/18/17 07:21; Start 04/13/17 at 10:00 Al Hydroxide/Mg Hydroxide (Mylanta Plus Xs) 30 ml PRN DAILY PRN PO CONSTIPATION ; Start 04/13/17 at 09:45 Magnesium Hydroxide (Milk Of Magnesia) 2,400 mg PRN DAILY PRN PO CONSTIPATION; Start 04/13/17 at 09:45 Metformin HCl (Glucophage) 850 mg BIDWMEALS PO Last administered on 04/18/17 08:15; Start 04/15/17 at 08:00 Senna/Docusate Sodium (Senna Plus) 1 tab BID PO Last administered on 04/18/17 08:16; Start 04/13/17 at 10:00 Sucralfate (Carafate) 1 gm TIDAC PO Last administered on 04/18/17 12:17; Start 04/13/17 at 11:30 Cyclobenzaprine HCl (Flexeril) 5 mg BID PO Last administered on 04/18/17 08:16 ; Start 04/13/17 at 10:15 Artificial Tears (Artificial Tears) 1 drop QID OU Last administered on 13:29; Start 04/13/17 at 10:15; Stop 04/15/17 at 16:40; Status DC Escitalopram Oxalate (Lexapro) 20 mg DAILY PO Last administered on 04/13/17 12: 39; Start 04/13/17 at 11:00; Stop 04/14/17 at 09:55; Status DC Fluticasone Propionate (Flonase) 2 spray DAILY NS ; Start 04/13/17 at 10:00; Stop 04/13/17 at 10:30; Status DC Folic Acid (Folic Acid) 1 mg DAILY PO Last administered on 04/18/17 08:16; Start 04/13/17 at 10:00 Non-Formulary Medication 1 mg PRN PRN IJ HYPOGLYCEMIA; Start 04/13/17 at 09:45; Status Cancel Multivitamins (Thera M Plus) 1 tab DAILY PO Last administered on 04/18/17 08: 22; Start 04/13/17 at 10:00 Potassium Chloride (Klor-Con) 10 meq [id number] PO Last administered on 08:15; Start 04/13/17 at 10:00 Insulin Aspart (NovoLOG) 0-7 UNITS TIDWMEALS SQ Last administered on 04/18/17 12:21; Start 04/13/17 at 12:00 Dextrose (Dextrose 50%-Water Syringe) 12.5 gm PRN Q15MIN PRN IV SEE COMMENTS; Start 04/13/17 at 10:00 Enoxaparin Sodium (Lovenox 40mg Syringe) 40 mg Q24H SQ ; Start 04/13/17 at 10:00 ; Stop 04/13/17 at 14:46; Status DC Fluticasone Propionate (Flonase) 2 spray DAILY NS Last administered on 08:17; Start 04/13/17 at 11:00 Escitalopram Oxalate (Lexapro) 20 mg DAILY PO Last administered on 04/18/17 08 :15; Start 04/14/17 at 10:00 Acetaminophen (Tylenol) 650 mg PRN Q4HRS PRN PO pain, fever Last administered on 04/14/17 12:29; Start 04/14/17 at 11:45 Piperacillin Sod/ Tazobactam Sod 3.375 gm/Sodium Chloride 50 ml @ 100 mls/hr Q6HRS IV Last administered on 04/18/17 06:01; Start 04/15/17 at 12:00; Stop 08/25 at 09:13; Status DC Glucagon (Glucagen) 1 mg PRN 1X PRN IM HYPOGLYCEMIA; Start 04/15/17 at 15:15 Artificial Tears (Artificial Tears) 1 drop QID OU Last administered on 12:18; Start 04/15/17 at 16:40 Amoxicillin/ Clavulanate Potassium (Augmentin 875/ 125mg) 1 tab BID PO Last administered on 04/18/17 12:18; Start 04/18/17 at 09:15 Active Scripts Active Reported Tylenol With Codeine #3 Tablet (Acetaminophen/Codeine Phosphate) 1 Each Tablet 1 Tab PO PRN Q4HRS PRN Artificial Tears Eye Drops (Dextran 70/Hypromellose) 15 Ml Drops 1 Drop EACHEYE QID Lexapro (Escitalopram Oxalate) 20 Mg Tablet 1 Tab PO DAILY Famotidine 20 Mg Tablet 20 Mg PO HS Metformin Hcl 850 Mg Tablet 850 Mg PO BIDWMEALS Linzess (Linaclotide) 72 Mcg Capsule 145 Mcg PO Potassium Chloride 10 Meq Capsule.er 10 Meq PO DAILY Flonase Allergy Relief (Fluticasone Propionate) 9.9 Ml [place].susp 2 Sprays NS DAILY Glucagen (Glucagon,Human Recombinant) 1 Mg Vial 1 Mg IJ PRN PRN Milk Of Magnesia (Magnesium Hydroxide) 400 Mg/5 Ml Oral.susp 30 Ml PO DAILY PRN Mi Acid Suspension (Mag Hydrox/Al Hydrox/Simeth) 355 Ml Oral.susp 30 Ml PO DAILY PRN Loperamide (Loperamide Hcl) 2 Mg Capsule 2 Mg PO PRN PRN Acetaminophen 325 Mg Tablet 2 Tab PO Q8HRS PRN Sucralfate 1 Gm Tablet 1 Tab PO TID Senna Plus Tablet (Sennosides/Docusate Sodium) 1 Each Tablet 1 Each PO BID Cyanocobalamin Injection (Cyanocobalamin (Vitamin B-12)) 1,000 Mcg/1 Ml Vial 1 Ml IM QMONTH Baclofen 10 Mg Tablet 10 Mg PO QID Novolog Flexpen (Insulin Aspart) 100 Unit/1 Ml Insuln.pen 7 Unit SQ TIDBFRMEAL Duoneb 0.5 Mg-3 Mg/3 Ml Soln (Ipratropium/Albuterol Sulfate) 3 Ml Ampul.neb 3 Ml IH [id number] Multi Vitamin Daily (Multivitamin) 1 Each Tablet 1 Each PO DAILY Gabapentin 100 Mg Capsule 100 Mg PO BID Lasix (Furosemide) 20 Mg Tablet 20 Mg PO DAILY Folic Acid 20 Mg Capsule 1 Mg PO DAILY Cyclobenzaprine Hcl 5 Mg Tablet 5 Mg PO BID Vitals/I & O Vital Sign - Last 24 Hours 04/17/17 04/17/17 04/17/17 04/17/17 15:00 19:00 20:00 20:00 Temp 98.1 97.9 98.1 97.9 Pulse 61 68 Resp 16 20 B/P (MAP) 118/42 (67) 118/49 (72) Pulse Ox 98 91 O2 Delivery Nasal Cannula Nasal Cannula Nasal Cannula Nasal Cannula O2 Flow Rate 2.0 2.0 2.0 2.0 04/17/17 04/18/17 04/18/17 04/18/17 23:00 03:00 06:02 07:00 Temp 96.9 97.7 99.2 96.9 97.7 99.2 Pulse 60 61 67 Resp 20 20 16 18 B/P (MAP) 99/39 (59) 117/32 (60) 130/53 (78) Pulse Ox 93 95 97 O2 Delivery Nasal Cannula Nasal Cannula Nasal Cannula Room Air O2 Flow Rate 2.0 2.0 2.0 04/18/17 04/18/17 04/18/17 04/18/17 07:19 07:26 08:00 11:01 Temp 99.2 99.2 Pulse 59 Resp 18 B/P (MAP) 111/42 (65) Pulse Ox 95 97 97 O2 Delivery Nasal Cannula Nasal Cannula Nasal Cannula Nasal Cannula O2 Flow Rate 2.0 1.0 2.0 2.0 Intake and Output 04/17/17 04/17/17 04/18/17 15:00 23:00 07:00 Intake Total 50 ml 50 ml Balance 50 ml 50 ml GURVINDER MITCHELL MD Apr 18, 2017 14:00
--- NOTE | 2017-04-22 10:54 | PDOC3 ---
IM DISCHARGE SUMMARY Date of Admission Date of Admission Date of Admission: Apr 13, 2017 at 01:06 Date of Discharge Date of Discharge 04/18/17 Primary Diagnosis Primary Diagnosis Problems Medical Problems: (1) Abdominal pain Status: Acute (2) Leukocytosis Status: Acute (3) Urinary tract infection Status: Acute Problems: Consults Consults dr sreedhar oden -ID Dr federica lawson-hematology Procedures Procedures transfusion blood ct of abd and pelvis Brief hospital course Brief hospital course This is 51 yr female with multiple med problems, admitted with fever, leukocytosis, n/v, sever anemia, abd pain. denies cough, sob, diarrhea, urinary symptoms, headache, She was found to have esteban wbc 19 ,fevr and UTI , E Coli, treated with antibiotics , she was anemia hereditary spherocytosis, seen by hematology, given blood transfusions. wbc down and she was feeling better ,she was d/ed back to [facility] with oral antibiotics For more details regarding the past history, family history, social history, surgical history and other details, please refer to History and Physical. Medications Current Medications Cyanocobalamin (Vitamin B-12) 1,000 mcg QMONTH IM ; Start 04/27/17 at 09:00; Stop 04/27/17 at 09:00; Status DC Allergy Allergies Coded Allergies Type Severity Reaction Last Updated Verified No Known Drug Allergies 12/19/16 No Follow up in 5 days. DISPOSITION: [facility] facility Comments Discharge Management - 35 minutes. For other details please refer to discharge instructions VIKI TRACY MD Apr 22, 2017 10:54
[2017-04-27] MEDS ORDERED: CYANOCOBALAMIN (VITAMIN B-12) 1,000 MCG/ML VIAL IM SCH (09:00)
== END 2017-04-18 16:35 | DRG 808 ==
LOC: ER 22:24 → 6 SOUTH 04-13 01:06
PROVIDERS: ADMIT Internal Medicine; ATTEND Internal Medicine
PROC: 30233N1 Transfusion of Nonautologous Red Blood Cells into Peripheral Vein, Percutaneous Approach (ICD-10-PCS; principal; 2017-04-14)
DX: D59.9 Acquired hemolytic anemia, unspecified (principal); G82.50 Quadriplegia, unspecified; N39.0 Urinary tract infection, site not specified; G82.20 Paraplegia, unspecified; B96.20 Unspecified Escherichia coli [E. coli] as the cause of diseases classified elsewhere; D58.0 Hereditary spherocytosis; D69.6 Thrombocytopenia, unspecified; E11.9 Type 2 diabetes mellitus without complications; E66.9 Obesity, unspecified; I10 Essential (primary) hypertension; K21.9 Gastro-esophageal reflux disease without esophagitis; R16.2 Hepatomegaly with splenomegaly, not elsewhere classified; Z68.37 Body mass index [BMI] 37.0-37.9, adult; Z90.49 Acquired absence of other specified parts of digestive tract; Z99.3 Dependence on wheelchair
CPT/HCPCS: 36415; 74177; 80048; 80053; 81001; 82274; 82607; 82728; 82746; 82962; 83010; 83540; 83550; 83615; 83690; 83880; 84484; 85007; 85027; 85045; 85610; 86850; 86870; 86880; 86900; 86901; 86920; 87040; 87086; 87186; 87641; 93005; 93306; 94250; 94640; 94760; 96365; 96375; A6539; J0690; J0696; J1815; J2405; J2543; J3010; J7620; P9016; Q9967; 97535; 99285-25

== ENCOUNTER 2018-09-04 12:26 | Emergency (ER) | payer MEDICARE, OTHER ==
[~2018-09-04] VITALS: Ht 165.1 cm; Wt 98.9 kg
[~2018-09-04 12:26] MED LIST changes: +ACET-704 PO; +DEXT15DR5 EACHEYE; +FAMO20TA5 PO; +FLUT9.9S NS; -HYDR-2758 PO; +HYDR-2761 PO; +LEXAPRO20 MG PO; +LINA72CA PO; -METF-620 PO; +METF10007 PO; +METF500T16 PO; -METF500T4 PO; +METF850T8 PO; +POTA10TA12 PO
[2018-09-04 12:30] VITALS: BP 148/62
--- NOTE | 2018-09-04 13:39 | RAD ---
EXAM: Right foot, 3 views. HISTORY: Blunt trauma. COMPARISON: None. FINDINGS: 3 views of the right foot are obtained. There is no acute fracture, dislocation or subluxation. There is bone demineralization. There is dorsal forefoot soft tissue swelling. IMPRESSION: 1. No acute osseous finding. 2. Dorsal forefoot soft tissue swelling. 3. Bony demineralization. Electronically signed by: Serina Malagon MD (09/04/2018 1:35 PM) [id number]
--- NOTE | 2018-09-04 13:45 | PHYS DOC ---
Past Medical History Past Medical History: Anemia, Diabetes-Type II, Gallstones, GERD, Hypertension , Other Additional Past Medical Histor: QUAD.,NEURO. BLADDER, MUSCLE SPASMS, CERVICAL FX, HYPOKALEMIA Past Surgical History: Other Additional Past Surgical Histo: UNKNOWN Alcohol Use: None Drug Use: None Adult General Chief Complaint Chief Complaint: FOOT INJURY PAIN [facility] HPI Patient is a 53 year old female who presents to the emergency department with complaints of right foot pain since her foot was ran [place] [facility]. She complains of pain, bruising, and increased swelling of her right foot. Caregiver reports the patient has chronic edema of the right lower extremity. Caregiver states earlier this morning patient reported her pain was 8 out of 10 since she gave patient a tramadol and that helped the pain. Patient currently reports her pain as a 4 out of 10 on the pain scale. She denies any numbness or tingling of the foot. Review of Systems Review of Systems Constitutional: Denies fever or chills [] Musculoskeletal: See HPI Integument: Denies rash, reports hematoma of anterior R foot Neurologic: Denies headache, focal weakness or sensory changes [] All other systems were reviewed and found to be within normal limits, except as documented in this note. Allergies Allergies Allergies Coded Allergies Type Severity Reaction Last Updated Verified No Known Drug Allergies 12/19/16 No Physical Exam Physical Exam Constitutional: Well developed, well nourished, no acute distress, non-toxic appearance. [] HENT: Normocephalic, atraumatic, bilateral external ears normal, nose normal. [] Eyes: PERRLA, conjunctiva normal, no discharge. [] Skin: Warm, dry, no erythema, no rash; 3+ pitting edema RLE, with contusion noted over anterior foot consistent with mechanism of injury. [] Extremities: R anterior foot tenderness to palpation, 2+ pedal/posterior tibial RLE pulses, no cyanosis, ROM intact Neurologic: Alert and oriented X 3, normal motor function, normal sensory function, no focal deficits noted. [] Psychologic: Affect normal, judgement normal, mood normal. [] Current Patient Data Vital Signs Vital Signs Date Time Temp Pulse Resp B/P (MAP) Pulse Ox O2 Delivery O2 Flow Rate FiO2 09/04/18 12:30 98.5 71 18 148/62 (90) 95 Room Air 98.5 EKG EKG [] Radiology/Procedures Radiology/Procedures PROCEDURE: FOOT RIGHT 3V EXAM: Right foot, 3 views. HISTORY: Blunt trauma. COMPARISON: None. FINDINGS: 3 views of the right foot are obtained. There is no acute fracture, dislocation or subluxation. There is bone demineralization. There is dorsal forefoot soft tissue swelling. IMPRESSION: 1. No acute osseous finding. 2. Dorsal forefoot soft tissue swelling. 3. Bony demineralization.[] Course & Med Decision Making Course & Med Decision Making Pertinent Labs and Imaging studies reviewed. (See chart for details) Dx: R foot contusion, R foot pain Xray negative for acute fracture. Wear the maddie wrap that was provided. Recommend ice and elevation. Continue taking your home tramadol as needed for pain. Follow up with Dr. Ngo if symptoms persist. Return to ER if symptoms worsen. [] Dragon Disclaimer Dragon Disclaimer This electronic medical record was generated, in whole or in part, using a voice recognition dictation system. Departure Departure Impression: Primary Impression: Contusion of right foot, initial encounter Additional Impression: Right foot pain Disposition: 01 HOME, SELF-CARE Condition: STABLE Referrals: GUNJAN CARREON (PCP) NEELIMA NGO II, MD Patient Instructions: Foot Contusion, [id number] Additional Instructions: Wear the maddie wrap that was provided. Recommend ice and elevation. Continue taking your home tramadol as needed for pain. Follow up with Dr. Ngo if symptoms persist. Return to ER if symptoms worsen. Problem Qualifiers SHAR LEIVA [employer] Sep 04, 2018 13:45
== END 2018-09-04 14:00 | disposition home or self-care (01) ==
LOC: ER 12:26
DX: S90.31XA Contusion of right foot, initial encounter (principal); E11.9 Type 2 diabetes mellitus without complications; K21.9 Gastro-esophageal reflux disease without esophagitis; I10 Essential (primary) hypertension; Z86.2 Personal history of diseases of the blood and blood-forming organs and certain disorders involving the immune mechanism; W31.89XA Contact with other specified machinery, initial encounter; Y93.89 Activity, other specified; Y92.89 Other specified places as the place of occurrence of the external cause; Y99.8 Other external cause status
CPT/HCPCS: 73630; 99283

== ENCOUNTER 2020-02-08 22:04 | Emergency (ER) | payer MEDICARE, OTHER ==
[~2020-02-08] VITALS: Ht 162.6 cm; Wt 98.0 kg
[~2020-02-08 22:04] MED LIST changes: -BISA10SU2 RC; +BISA10SU4 RC; -GABA-586 PO; +GABA300C18 PO; +OMEP40CA45 PO; -OMEP40CA5 PO; -SENN1TAB21 PO; +SENN1TAB62 PO
--- NOTE | 2020-02-08 22:26 | PHYS DOC ---
Past Medical History Past Medical History: Anemia, Diabetes-Type II, Gallstones, GERD, Hypertension, Other Additional Past Medical Histor: QUAD.,NEURO. BLADDER, MUSCLE SPASMS, CERVICAL FX, HYPOKALEMIA Past Surgical History: Other Additional Past Surgical Histo: UNKNOWN Smoking Status: Never Smoker Alcohol Use: None Drug Use: None General Adult EDM: Chief Complaint: HYPERGLYCEMIA HPI: HPI: Patient is a 54 year old female who presents from [facility] with report of elevated blood sugar, greater than 400. Patient received 10 units of Lantus earlier this evening and her provider wanted her to be sent to the emergency room for stabilization of her blood sugar. Patient indicates that she also has pain in her abdomen that started at about 6:00 this morning. She admits to some nausea but is had no vomiting. She denies any diarrhea.[] Review of Systems: Review of Systems: Constitutional: Denies fever or chills. [] Eyes: Denies change in visual acuity. [] HENT: Denies nasal congestion or sore throat. [] Respiratory: Denies cough or shortness of breath. [] Cardiovascular: Denies chest pain or edema. [] GI: Denies abdominal pain, nausea, vomiting, bloody stools or diarrhea. [] : Denies dysuria. [] Musculoskeletal: Denies back pain or joint pain. [] Integument: Denies rash. [] Neurologic: Denies headache, focal weakness or sensory changes. [] Endocrine: Denies polyuria or polydipsia. [] Lymphatic: Denies swollen glands. [] Psychiatric: Denies depression or anxiety. [] Heart Score: Risk Factors: Risk Factors: DM, Current or recent (<one month) smoker, HTN, HLP, family history of CAD, obesity. Risk Scores: Score 0 - 3: 2.5% MACE over next 6 weeks - Discharge Home Score 4 - 6: 20.3% MACE over next 6 weeks - Admit for Clinical Observation Score 7 - 10: 72.7% MACE over next 6 weeks - Early Invasive Strategies Allergies: Allergies: Allergies Coded Allergies Type Severity Reaction Last Updated Verified No Known Drug Allergies 12/19/16 No Physical Exam: PE: Constitutional: Well developed, well nourished, no acute distress, non-toxic appearance. [] HENT: Normocephalic, atraumatic, bilateral external ears normal, oropharynx moist, no oral exudates, nose normal. [] Eyes: PERRLA, EOMI, conjunctiva normal, no discharge. [] Neck: Normal range of motion, no tenderness, supple, no stridor. [] Cardiovascular:Heart rate regular rhythm, no murmur [] Lungs & Thorax: Bilateral breath sounds clear to auscultation [] Abdomen: Bowel sounds normal, soft, no tenderness, no masses, no pulsatile masses. [] Skin: Warm, dry, no erythema, no rash. [] Back: No tenderness, no CVA tenderness. [] Extremities: No tenderness, no cyanosis, no clubbing, ROM intact, no edema. [] Neurologic: Alert and oriented X 3, normal motor function, normal sensory function, no focal deficits noted. [] Psychologic: Affect normal, judgement normal, mood normal. [] Current Patient Data: Labs: Laboratory Tests Test 02/08/20 22:13 Glucose (Fingerstick) 453 mg/dL (70-99) H EKG: EKG: [] Radiology/Procedures: Radiology/Procedures: [] Impression: PROCEDURE: ACUTE ABDOMEN SERIES ACUTE ABDOMEN SERIES History: Abdominal pain. Comparison: CT abdomen and pelvis with contrast April 13, 2017. Findings: Frontal chest and supine and upright views of the abdomen. Cardiomediastinal silhouette is normal allowing for technique. There is no pleural effusion or pneumothorax. The lungs are clear. No pneumoperitoneum is identified. Scattered air and stool in the colon. No dilated small bowel. Cholecystectomy clips.. Surgical clip in the pelvis. No air-fluid levels on the upright image. Bowel gas pattern is nonobstructive. There is splenomegaly. Bones unremarkable. IMPRESSION: 1. No acute cardiopulmonary process. 2. Nonobstructive bowel gas pattern. 3. Splenomegaly. Electronically signed by: Sal Bishop MD (02/09/2020 1:39 AM) [id number] Course & Med Decision Making: Course & Med Decision Making Pertinent Labs and Imaging studies reviewed. (See chart for details) Patient moved to room upon arrival was evaluated by ER medical staff after which an IV was established and blood work drawn. Shortly after patient arrival, [facility] staff notified this facility the patient has just tested positive for COVID 19. Facility did not however notify this facility that this patient was under investigation for Covid (PUI). Patient was given IV fluids along with IV insulin and blood sugar has come down to 297. [facility]. Dragon Disclaimer: Rajesh Disclaimer: This electronic medical record was generated, in whole or in part, using a voice recognition dictation system. Departure Departure Impression: Primary Impression: Hyperglycemia Additional Impressions: Nonspecific abdominal pain COVID-19 Disposition: 01 HOME, SELF-CARE Condition: STABLE Referrals: GUNJAN CARREON (PCP) Patient Instructions: Abdominal Pain, Hyperglycemia ROSALVA OMALLEY Jr. DO February 08, 2020 22:26
[2020-02-08] MEDS ORDERED: fentaNYL PF VIAL 100 MCG/2 ML VIAL IV PRN (22:30)
[2020-02-08] MEDS ORDERED: IV NORMAL SALINE 1000ML BAG 1,000 ML IV SCH (22:30)
[2020-02-08] MEDS ORDERED: ONDANSETRON PF 4 MG/2 ML VIAL. IVP ONE (22:30)
[2020-02-08 22:32] LABS: BASO # 0.1 x10^3/uL (0.0-0.2); BASO % 1 % (0-3); EOS % 0 % (0-3); HEMATOCRIT 22.1 % (36.0-47.0); HEMOGLOBIN 7.6 g/dL (12.0-15.5); LYMPH # 1.4 x10^3/uL (1.0-4.8); LYMPH % 10 % (24-48); MEAN CORPUSCULAR HEMOGLOBIN 29 pg (25-35); MEAN CORPUSCULAR HGB CONC 34 g/dL (31-37); MEAN CORPUSCULAR VOLUME 85 fL (79-100); MONO # 0.7 x10^3/uL (0.0-1.1); MONO % 5 % (0-9); NEUT # 11.7 x10^3/uL (1.8-7.7); NEUT % 84 % (31-73); PLATELET COUNT 138 x10^3/uL (140-400); RED BLOOD COUNT 2.61 x10^6/uL (3.50-5.40); RED CELL DISTRIBUTION WIDTH 25.3 % (11.5-14.5); WHITE BLOOD COUNT 13.9 x10^3/uL (4.0-11.0)
[2020-02-08 22:39] LABS: CALCIUM 8.8 mg/dL (8.5-10.1); CREATININE 1.2 mg/dL (0.6-1.0); GFR 47.2; POTASSIUM 4.2 mmol/L (3.5-5.1)
[2020-02-08 22:45] LABS: ALBUMIN 3.9 g/dL (3.4-5.0); ALBUMIN/GLOBULIN RATIO 1.3 (1.0-1.7); TOTAL BILIRUBIN 2.4 mg/dL (0.2-1.0)
[2020-02-08 22:46] LABS: BILIRUBIN,URINE NEGATIVE (NEG); CLARITY,URINE CLEAR; COLOR,URINE YELLOW; NITRITE,URINE NEGATIVE (NEG); PH,URINE 6.5 (<5.0-8.0); PROTEIN,URINE NEGATIVE (NEG-TRACE)
[2020-02-08 22:51] LABS: BACTERIA,URINE MANY /HPF (0-FEW); RBC,URINE OCC /HPF (0-2)
[2020-02-08 22:52] LABS: SQUAMOUS EPITHELIAL CELL,UR OCC /LPF
[2020-02-08 23:37] LABS: PLT ESTIMATE DECREASED (ADEQUATE); POLYCHROMASIA MOD
[2020-02-08 23:39] LABS: ANISOCYTOSIS MARKED; SPHEROCYTES FEW
--- NOTE | 2020-02-09 01:42 | RAD ---
ACUTE ABDOMEN SERIES History: Abdominal pain. Comparison: CT abdomen and pelvis with contrast April 13, 2017. Findings: Frontal chest and supine and upright views of the abdomen. Cardiomediastinal silhouette is normal allowing for technique. There is no pleural effusion or pneumothorax. The lungs are clear. No pneumoperitoneum is identified. Scattered air and stool in the colon. No dilated small bowel. Cholecystectomy clips.. Surgical clip in the pelvis. No air-fluid levels on the upright image. Bowel gas pattern is nonobstructive. There is splenomegaly. Bones unremarkable. IMPRESSION: 1. No acute cardiopulmonary process. 2. Nonobstructive bowel gas pattern. 3. Splenomegaly. Electronically signed by: Sal Bishop MD (02/09/2020 1:39 AM) [id number]
[2020-02-09 03:00] VITALS: BP 111/55
--- NOTE | 2020-02-10 08:08 | EKG ---
[facility] [address] [place] [address] Test Date: 2020-02-08 Test Time: 22:59:09 Pat Name: JOCE RODARTE Department: Room: Gender: F Bid Writer: [id number] : 1965 Requested By: ROSALVA OMALLEY Order Number: [id number] Reading MD: Ramiro Alvarez Measurements Intervals [place] Rate: 69 P: CA: QRS: -13 QRSD: 102 T: 23 QT: 426 QTc: 458 Interpretive Statements SINUS RHYTHM LEFTWARD AXIS QRS(T) CONTOUR ABNORMALITY CONSIDER ANTEROLATERAL MYOCARDIAL DAMAGE POSSIBLY ABNORMAL ECG Electronically Signed On 02-10-2020 8:50:27 CDT by Ramiro Alvarez
== END 2020-02-09 03:14 | disposition home or self-care (01) ==
LOC: ER 22:04
DX: E11.65 Type 2 diabetes mellitus with hyperglycemia (principal); R10.9 Unspecified abdominal pain; U07.1 COVID-19; K21.9 Gastro-esophageal reflux disease without esophagitis; I10 Essential (primary) hypertension
CPT/HCPCS: 36415; 74022; 80053; 81001; 82010; 82962; 83690; 85025; 87086; 96361; 96374; 96375; 99285; J2405; J3010; J7030; 93005